=== PATIENT | female | born 2000 | race Caucasian/White ===

== ENCOUNTER 2020-04-04 16:39 | Outpatient (REF) | payer OTHER, SELFPAY | END 2020-04-04 16:40 | disposition home or self-care (01) | LOC: HO.LAB 16:39 | PROVIDERS: Visit Provider Internal Medicine | DX: Z20.822 Contact with and (suspected) exposure to COVID-19 (principal) | CPT/HCPCS: 36415; C9803; U0003 ==

== ENCOUNTER → 2021-05-01 13:33 | Outpatient (BNVA) | payer OTHER, SELFPAY | PROVIDERS: Visit Provider Physician Assistant Medical | DX: S57.82XA Crushing injury of left forearm, initial encounter (principal); W31.9XXA Contact with unspecified machinery, initial encounter | CPT/HCPCS: 99203 ==

== ENCOUNTER → 2021-05-10 15:17 | Outpatient (BNVA) | payer OTHER, SELFPAY | PROVIDERS: Visit Provider Physician Assistant | DX: S57.82XA Crushing injury of left forearm, initial encounter (principal); W23.0XXA Caught, crushed, jammed, or pinched between moving objects, initial encounter | CPT/HCPCS: 99214 ==

== ENCOUNTER 2021-05-23 12:02 | Outpatient (REF) | payer OTHER, SELFPAY ==
--- NOTE | ~2021-05-23 | MR_ITS ---
EXAMINATION: MR FOREARM WITHOUT CONTRAST, LEFT CLINICAL INFORMATION: Crushing injury in machine. Unable to fully supinate. COMPARISON: None TECHNIQUE: Multiplanar MR imaging was obtained through the left forearm without contrast material on a 1.5 Hermila magnet. FINDINGS: There is edema signal around the flexor pollicis longus muscle in the volar aspect of the mid forearm. No discrete muscle or tendon tears. This may be due to a focal strain or contusion. Surrounding musculature is normal in signal intensity. No atrophy or fatty replacement. No additional areas of edema signal. The imaged tendons appear intact at both the elbow and wrist. No tears are identified. Both the common extensor and common flexor tendons are normal. Brachialis, biceps, and triceps tendons are normal. Extensor and flexor tendons at the level the wrist appear intact without appreciable tears. Sensitivity for subtle abnormalities at the wrist is limited given the large [id number] and low resolution of these tendons at the distal margin of the study. Bone marrow signal is normal. No fracture or malalignment. Elbow and wrist joints are unremarkable on these images. No appreciable arthritis. No fractures are identified. Alignment appears appropriate. No effusions are identified. There is subcutaneous edema in the forearm which is most pronounced at the volar/medial aspect proximally and, to a lesser extent, the dorsal aspect distally. As seen on image 22/39 series 6, there is a very thin 3 x 1.5 x 5.3 cm fluid collection in the superficial subcutaneous fat at the volar/medial aspect of the forearm. MR/MR forearm LT wo con IMPRESSION: 1. Mild edema signal around the flexor pollicis longus muscle at the mid forearm, suggestive of a strain or contusion. No tears. 2. Additional multifocal subcutaneous edema in the forearm with a thin band of subcutaneous fluid at the volar/medial aspect of the mid forearm, likely due to soft tissue contusions. No large hematomas or deep fluid collections are identified. 3. No acute osseous findings.
== END 2021-05-23 12:03 | disposition home or self-care (01) ==
LOC: HO.MRI 12:02
PROVIDERS: Visit Provider Internal Medicine
DX: S57.82XA Crushing injury of left forearm, initial encounter (principal); X58.XXXA Exposure to other specified factors, initial encounter; Y93.9 Activity, unspecified; Y92.9 Unspecified place or not applicable; Y99.9 Unspecified external cause status
CPT/HCPCS: 73218

== ENCOUNTER → 2021-05-24 09:32 | Outpatient (BNVA) | payer OTHER, SELFPAY | PROVIDERS: Visit Provider Physician Assistant | DX: S50.12XD Contusion of left forearm, subsequent encounter (principal); W23.0XXD Caught, crushed, jammed, or pinched between moving objects, subsequent encounter | CPT/HCPCS: 99213 ==

== ENCOUNTER → 2021-05-27 15:41 | Outpatient (BNVA) | payer OTHER, SELFPAY | PROVIDERS: Visit Provider Physician Assistant Medical | DX: S50.12XD Contusion of left forearm, subsequent encounter (principal); W23.0XXD Caught, crushed, jammed, or pinched between moving objects, subsequent encounter | CPT/HCPCS: 99213 ==

== ENCOUNTER 2021-06-13 15:30 | Outpatient (RCR) | payer OTHER, SELFPAY ==
--- NOTE | 2021-05-15 14:02 | MHC.OT.OEV ---
[address] [phone] F: [phone] Occupational Therapy Evaluation Diagnosis: Crush injury left arm Date of Onset: 04/27/21 Date of Surgery: Attending Provider: Jolie Jaimes PA-C Prescribed Treatment: Eval and treat MD Follow Up Appointment: 05/22/21 History of Current Condition: Pt reports her left hand and forearm sucked in to 2 rollers at . Pt pulled her arm out The ambulance brought her to the ER at [facility]. XR taken , given ibuprofen and tylonal. Instructed to elevate arm and follow up with Pt seen in the [facility] 05/01/21. Given Rx for ibuprofen and elevate. Pt referred to OT same day. Significant Medical History: Eczema, ho back pain. 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 72 sets per 12 hr shift , 4 days a wk Enjoys babysitting and water colors Living Situation, Family and/or Social Support: Lives with her parents, older sister and brother babysits Current Level of Function and Occupation Self Care, Employment, Leisure: Mod difficulty with homemaking, food preparation , babysitting.. due arm pain with use Out of work since injury Sleep: Mild difficulty falling asleep, discomfort in some positions Driving: WNL Vision: Balance: Pain Assessment Pain Score: 7 Pain Scale Used: Numeric (0 - 10) Pain Location and Description: 2-7 ulnar aspect of left forearm Aggravating Factors: Washing follows , dusting, lifting > 10 lb Alleviating Factors: Avoiding lifting...ice Skin and Soft Tissue Assessment Skin and Soft Tissue: Swelling Ecchymosis Comments: Left forearm edema and light ecchymosis ulnar aspect Nerve assessment Ulnar Nerve: WNL Median Nerve: WNL Radial Nerve: WNL Comments: Sensory Assessment Temperature: Light Touch: WNL Proprioception: Vibration: Comments: Edema Assessment Upper Extremity: Left Impaired Lower Extremity: Comments: Circumference at wrist R 17 cm L 17.5 cm 20 cm prox to wrist R 30.5 cm L 31.5 cm Dexterity Assessment Dexterity: WNL Comments: Special Tests Comments: AROM(PROM) Strength Cervical Cervical Flexion: Cervical Extension: Cervical Lateral Flexion: Cervical Rotation: Comments: Shoulder Flexion: Extension: Abduction: Internal Rotation: External Rotation: Comments: WNL Flexion: Extension: Abduction: Internal Rotation: External Rotation: Comments: WNL Elbow Flexion: Extension: Pronation: Supination: Comments: WNL. Right elbow hyper ext..left elbow to neutral Flexion: Extension: Pronation: Supination: Comments: WNL Wrist Flexion: Extension: Ulnar Deviation: Radial Deviation: Comments: WNL . 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 Patient verbalizes Needs reinforcement Barriers to Learning: None Readiness for Learning: Accepting Who was educated? Patient Comments: Plan of Care Assessment: Pt is a 21 yo female 2 wks, 4 days s/p left forearm crush injury between rollers of a machine at work. XR done at [facility] showed no fx or dislocation. Pt now being followed by the [facility] here at [facility] She reports pain and arm edema improving. 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 She has been out of work since her injury She will benefit from OT to dec edema and pain, and inc ease with UE mobility and activities tolerance including lifting tolerance for a safe return to work. 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
--- NOTE | 2021-06-13 16:43 | MHC.OT.DC ---
[address] [phone] F: [phone] Occupational Therapy Discharge Note Provider: Jolie Jaimes PA-C Diagnosis: Crush injury left arm Date of Surgery: Date of Evaluation: 05/15/21 Date of Discharge: 06/13/21 Treatments to Date: 5 Cancellations to Date: 0 No Shows to Date: Discharge Status: Achieved Goals Improved Function Independent with HEP Discharge Summary: Inc ease with UE ROM and dec in arm edema and dec frequency and intensity of pain too very low and only when bumped. Pt continues to avoid heavy use of her right arm. Pt reports that [employer] released her to [employer] light duty. 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 I anticipate con't improvement with her HEP She will follow up with [facility] in 6 wks Electronically Signed By: Liz Boyce OT CHT CLT Reviewed/agree with student documentation: N/A Therapist: Please Sign and return to therapist, thank you for your referral.
== END 2021-06-13 16:44 | disposition home or self-care (01) ==
LOC: HO.OT 15:30
PROVIDERS: Visit Provider Physician Assistant
DX: S47.2XXD Crushing injury of left shoulder and upper arm, subsequent encounter (principal)
CPT/HCPCS: 97110; 97140; 97165

== ENCOUNTER 2022-02-04 13:51 | Outpatient (REF) | payer OTHER, SELFPAY ==
--- NOTE | 2022-02-04 17:29 | PFT_ITS ---
FLOWS: FEV1 90% of predicted at 3.06 L. FVC 86% of predicted at 3.40 L. FEV1 to FVC ratio of 0.90. No bronchodilator response. LUNG VOLUMES: Total lung capacity 81% of predicted at 4.24 L. Residual volume 65% of predicted at 0.84 L. Slow vital capacity 86% of predicted at 3.39 L. Expiratory reserve volume 47% of predicted at 0.73 L. Diffusion capacity is normal. IMPRESSION: No obstructive or restrictive ventilatory defect. No bronchodilator response. Decreased expiratory reserve volume suggests extrathoracic restriction likely secondary to abdominal obesity. Han Maldonado MD AP/MODL / [id number]
== END 2022-02-04 13:52 | disposition home or self-care (01) ==
LOC: HO.RESP 13:51
PROVIDERS: PCP Internal Medicine; Visit Provider Hospitalist
DX: J45.909 Unspecified asthma, uncomplicated (principal)
CPT/HCPCS: 94060; 94727; 94729

== ENCOUNTER 2022-04-24 15:49 | Outpatient (REF) | payer OTHER, SELFPAY ==
--- NOTE | ~2022-04-24 | XR_ITS ---
EXAMINATION: XR CHEST CLINICAL INFORMATION: Asthma. COMPARISON: None. TECHNIQUE: Frontal and lateral views of the chest were obtained. FINDINGS: The heart, great vessels, pulmonary vasculature and mediastinum are normal. The lungs show no focal infiltrate, effusion or pneumothorax. There is mild bilateral bronchiolar wall thickening. There is no acute osseous abnormality. XR/XR chest 2V IMPRESSION: 1. No focal infiltrate or congestive heart failure is seen. 2. There is mild bronchiolar wall thickening, consistent with the provided history of asthma.
[2022-04-24 16:10] LABS: MANUAL DIFF FLAG NO
[2022-04-24 16:27] LABS: Basophils Absolute Auto 0.1 X10*3/uL (0.0-0.2); Basophils Percent Auto 0.7 % (0-2); Eosinophils Absolute Auto 0.3 X10*3/uL (0.0-0.4); Eosinophils Percent Auto 3.3 % (0-4); Hematocrit 41.5 % (37.0-47.0); Hemoglobin 14.1 g/dl (12.0-16.0); Imm Gran Abs Auto 0.03 X10*3/uL (0.00-0.03); Imm Gran Pct Auto 0.3 % (0.0-0.4); Lymphocytes Absolute Auto 3.5 X10*3/uL (1.2-4.9); Lymphocytes Percent Auto 36.9 % (20-40); Mean Corpuscular Hemoglobin 28.1 pg (27.0-33.0); Mean Corpuscular Volume 82.7 fL (80.0-98.0); Mean Platelet Volume 9.4 fL (9.4-12.3); Monocytes Absolute Auto 0.8 X10*3/uL (0.1-1.2); Neutrophils Absolute Auto 4.8 x10*3/uL (2.0-8.3); Neutrophils Percent Auto 50.8 % (45-73); Platelet Count 283 X10*3/uL (160-400); Red Blood Count 5.02 X10*6/uL (4.20-5.50); Red Cell Distribution Width 12.2 % (11.0-16.0); White Blood Count 9.5 X10*3/uL (4.8-10.8)
[2022-04-24 17:11] LABS: Erythrocyte Sedimentation Rate 12 MM/HR (0-20)
== END 2022-04-24 15:50 | disposition home or self-care (01) ==
LOC: HO.XRAY 15:49
PROVIDERS: PCP Internal Medicine; Visit Provider Hospitalist
DX: J45.909 Unspecified asthma, uncomplicated (principal)
CPT/HCPCS: 36415; 71046; 85025; 85652

== ENCOUNTER 2022-05-08 19:15 | Emergency (ER) | payer OTHER, SELFPAY ==
--- NOTE | ~2022-05-08 | XR_ITS ---
EXAMINATION: XR CHEST CLINICAL INFORMATION: Chest pain and shortness of breath. Palpitations. COMPARISON: Previous chest x-ray from earlier this month TECHNIQUE: Frontal view of the chest was obtained. FINDINGS: No significant abnormality is noted involving the heart, lungs, mediastinum, bony thorax or soft tissues. XR/XR chest 1V IMPRESSION: Unremarkable examination.
[2022-05-08 19:17] VITALS: BP 192/107; PULSE 132; RESP 20; TEMP 36.3; O2SAT 97; BMI 43.2
--- NOTE | 2022-05-08 19:17 | ED.CHESTPAIN ---
HPI - Chest Pain General Chief Complaint: Chest Pain <EVERARDO Urban - Last Filed: 05/08/22 19:25> Stated Complaint: chest pain, shortness of breath, nausea, back pain <EVERARDO Urban - Last Filed: 05/08/22 19:25> Time Seen by Provider: 05/08/22 21:28 <EVERARDO Urban - Last Filed: 05/08/22 19:25> Source: patient <Alon Plasencia MD - Last Filed: 05/09/22 00:31> Mode of arrival: ambulatory <Alon Plasencia MD - Last Filed: 05/09/22 00:31> Limitations: no limitations <Alon Plasencia MD - Last Filed: 05/09/22 00:31> History of Present Illness HPI narrative: 22yoF with a PMHx of PCOs, GERD, Depression who is presenting to the ED with complaints of headaches, nausea, CP, SOB, feeling like hearts racing for last 2 1/2 months, on arrival patient's blood pressure was 192/107 with heart rate of 132 repeat blood pressure was 142/87. Patient never had history of hypertension has gained about 20 lb in last few months feels short of breath specially on ambulation patient does snore in the night chest pain is off and on lasting for hours no relation to exertion patient has history of anxiety but does not feel anxious all the time does have multiple pets or specific no family history of hypertension or cardiac problems no history of asthma no leg swelling or calf pain <Alon Plasencia MD - Last Filed: 05/09/22 00:31> Related Data Home Medications: Home Medications Medication Instructions Recorded Confirmed venlafaxine 150 mg 150 mg PO DAILY 12/25/21 12/25/21 capsule,extended release 24 hr venlafaxine 37.5 mg tablet 37.5 mg PO DAILY 12/25/21 12/25/21 Previous Rx's Medication Instructions Recorded omeprazole 20 mg capsule,delayed 20 mg PO DAILY 90 days #90 caps 12/25/21 release montelukast 5 mg chewable tablet 5 mg PO BEDTIME 30 days #30 tabs 01/16/22 albuterol sulfate 90 mcg/actuation 2 inh inhalation Q6H PRN shortness 01/21/22 aerosol inhaler of breath or wheezing 30 days #1 ea metoprolol tartrate 50 mg tablet 50 mg PO BID #60 tabs 05/09/22 (Lopressor) <EVERARDO Urban - Last Filed: 05/08/22 19:25> Allergies/Adverse Reactions: Allergies Allergy/AdvReac Type Severity Reaction Status Date / Time dust mite Allergy Mild stuffy Uncoded 01/16/22 15:21 nose, cough <EVERARDO Urban - Last Filed: 05/08/22 19:25> Review of Systems Review of Systems: Yes all other systems are reviewed and are negative <Alon Plasencia MD - Last Filed: 05/09/22 00:31> [facility] Past Medical History Medical History: Medical History Asthma Atopic dermatitis Chronic rhinitis <EVERARDO Urban - Last Filed: 05/08/22 19:25> Surgical History: Surgical History No pertinent past surgical history <EVERARDO Urban - Last Filed: 05/08/22 19:25> Family History Family History: Family History Mother Hypertension Pre-diabetes Arthritis Father No problems noted. Maternal Grandmother Stroke <EVERARDO Urban - Last Filed: 05/08/22 19:25> Social History Social History: Social History Housing: House Alcohol intake: current Alcohol intake frequency: a few times a month Alcohol type: wine Patient Tobacco Use Status: Never used Tobacco e-Cigarette/Vaping Use: Never Used Second Hand Smoke Exposure: No Advance Directives: No Advance Directives Information Provided: No service: No Current occupational status: unemployed Cognitive needs: No Hearing needs: No Vision needs: Yes <EVERARDO Urban - Last Filed: 05/08/22 19:25> Physical Exam Vital Signs: Vital Signs: Last Vital Signs Temp 97.2 F 05/09/22 00:04 Pulse 97 05/09/22 00:04 Resp 23 H 05/09/22 00:04 BP 141/85 H 05/09/22 00:04 Pulse Ox 96 05/09/22 00:04 O2 Del Method 05/09/22 00:04 BMI result Body Mass Index 43.2 <EVERARDO Urban - Last Filed: 05/08/22 19:25> Vital Signs: Last Vital Signs Temp 97.2 F 05/09/22 00:04 Pulse 97 05/09/22 00:04 Resp 23 H 05/09/22 00:04 BP 141/85 H 05/09/22 00:04 Pulse Ox 96 05/09/22 00:04 O2 Del Method 05/09/22 00:04 BMI result Body Mass Index 43.2 <Alon Plasencia MD - Last Filed: 05/09/22 00:31> Appearance: Alert. Oriented X3. No acute distress. Eyes: PERRLA, No Nystagmus ENT: Pharynx normal. Oral Mucosa moist Neck: Normal inspection. Neck supple. CVS: Tachycardia no murmur no rub or gallop. Pulses normal. Respiratory: No respiratory distress. Equal air entry bilateral, no wheezing/rales/rhonchi Abdomen: Soft and nontender. Bowel sounds are present, no mass palpable, no CVA tenderness Skin: Skin warm and dry. Normal skin color. Normal skin turgor. Extremities: No lower extremity edema. No calf tenderness Neuro: Oriented X 3. No motor deficit. No sensory deficit.No cerebellar signs , cranial nerves II-XII intact <Alon Plasencia MD - Last Filed: 05/09/22 00:31> Course Course Course Narrative: RME- 19:20 22yoF with a PMHx of PCOs, GERD, Depression who is presenting to the ED with complaints of headaches, nausea, CP, SOB, feeling like hearts racing and left/mid back for a few weeks worse yesterday. She also noted blurry vision yesterday. And left leg pain. She took her BP yesterday and noted it to be high at 147/102. Has never had blood pressure issues. Denies being on BC, recent travel, surgery, cancer, DVT/PE's, or hypercoagulation disorder that she is aware of. She denies any fevers, abdominal pain, vomiting or any other symptoms complaints or concerns at this time. Patient noted to be hypertensive and tachycardic in triage. Therefore she will have labs, EKG and a chest x-ray and she will be brought to the emergency department for further evaluation treatment. <EVERARDO Urban - Last Filed: 05/08/22 19:25> Medications Administered Discontinued Medications Generic Name Dose Route Start Last Admin Trade Name Freq PRN Reason Stop Dose Admin Sodium Chloride 1,000 mls @ 999 mls/hr 05/08/22 21:31 05/08/22 22:44 Ns IV 05/08/22 22:31 Infused .Q1H1M ONE Infusion Metoprolol Tartrate 5 mg 05/08/22 21:31 05/08/22 21:35 Metoprolol Tartrate 5 Mg/5 Ml Vial IVPUSH 05/08/22 21:32 5 mg ONCE ONE Administration <EVERARDO Urban - Last Filed: 05/08/22 19:25> Medications Administered Discontinued Medications Generic Name Dose Route Start Last Admin Trade Name Freq PRN Reason Stop Dose Admin Sodium Chloride 1,000 mls @ 999 mls/hr 05/08/22 21:31 05/08/22 22:44 Ns IV 05/08/22 22:31 Infused .Q1H1M ONE Infusion Metoprolol Tartrate 5 mg 05/08/22 21:31 05/08/22 21:35 Metoprolol Tartrate 5 Mg/5 Ml Vial IVPUSH 05/08/22 21:32 5 mg ONCE ONE Administration <Alon Plasencia MD - Last Filed: 05/09/22 00:31> Medical Decision Making Medical Decision Making MDM Narrative: Patient with sinus tachycardia with heart rate fluctuating between 110-130 responded to Lopressor no orthostatic tachycardia. Patient denies any anxiety no caffeine intake chest pain was atypical without any ischemic changes in the EKG patient D-dimer was normal high sensitive troponin was negative urine was normal flu RSV COVID negative chest x-ray was also negative. Patient might have essential hypertension along with tachycardia. Will discharge patient home on Lopressor 50 mg twice daily advised to follow with receiving supervisor and PCP for further evaluation <Alon Plasencia MD - Last Filed: 05/09/22 00:31> Differential Diagnosis Atrial fibrillation/atrial flutter/sinus tachycardia/SVT/anxiety/hypertension/PE/POTS <Alon Plasencia MD - Last Filed: 05/09/22 00:31> Lab Data [facility] Lab Attestation statement: I reviewed the patient's lab results. <Alon Plasencia MD - Last Filed: 05/09/22 00:31> Result Diagrams: 05/08/22 19:47 05/08/22 19:47 <EVERARDO Urban - Last Filed: 05/08/22 19:25> Labs: Lab Results 05/08/22 05/08/22 05/08/22 Range/Units 19:47 19:47 19:47 WBC 11.2 H (4.8-10.8) X10*3/uL RBC 4.99 (4.20-5.50) X10*6/uL Hgb 14.0 (12.0-16.0) g/dl Hct 40.8 (37.0-47.0) % MCV 81.8 (80.0-98.0) fL MCH 28.1 (27.0-33.0) pg MCHC 34.3 (31.0-35.0) g/dl RDW 12.3 (11.0-16.0) % Plt Count 312 (160-400) X10*3/uL MPV 9.2 L (9.4-12.3) fL Immature Gran % (Auto) 0.4 (0.0-0.4) % Neut % (Auto) 65.3 (45-73) % Lymph % (Auto) 26.3 (20-40) % [place] % (Auto) 5.6 (2-11) % Eos % (Auto) 1.9 (0-4) % Baso % (Auto) 0.5 (0-2) % Lymph # (Auto) 2.9 (1.2-4.9) X10*3/uL [place] # (Auto) 0.6 (0.1-1.2) X10*3/uL Eos # (Auto) 0.2 (0.0-0.4) X10*3/uL Baso # (Auto) 0.1 (0.0-0.2) X10*3/uL Abs Immat Gran (auto) 0.05 H (0.00-0.03) X10*3/uL Absolute Neuts (auto) 7.3 (2.0-8.3) x10*3/uL Absolute Nucleated RBC 0.000 (0.0-0.012) X10*3/uL Nucleated RBC % (auto) 0.0 (0.0-0.2) /100WBC PT 11.0 (10.0-13.1) SEC INR 1.0 (0.9-1.1) D-Dimer High Sensitivty 177 NG/ML Sodium 140 (135-145) mmol/L Potassium 4.1 (3.3-5.1) mmol/L Chloride 105 (96-108) mmol/L Carbon Dioxide 22 (22-29) mmol/L Anion Gap 17 (12-20) BUN 9 (9-16) mg/dL Creatinine 0.77 (0.5-1.4) mg/dL Estim Creat Clear Calc 145.9 Estimated GFR > 60 Random Glucose 112 (60-115) mg/dL Calcium 9.9 (8.4-10.2) mg/dL Magnesium 1.8 (1.6-2.6) mg/dL Total Bilirubin 0.4 (0.0-1.0) mg/dL AST 28 (5-31) U/L ALT 32 H (0-31) U/L Alkaline Phosphatase 90 (39-117) U/L Troponin I High Sens (<3.5-17.0) ng/L Total Protein 7.6 (6.5-8.0) g/dL Albumin 4.2 (3.5-5.0) g/dL Lipase (8-78) U/L Beta HCG, Quant mIU/mL Urine Color Urine Appearance Urine pH (5.0-9.0) Ur Specific [place] (1.005-1.025) Urine Protein (Neg-Trace) mg/dL Urine Glucose (UA) (Negative) mg/dL Urine Ketones (Negative) mg/dL Urine Blood (Negative) Urine Nitrite (Negative) Ur Leukocyte Esterase (Negative) Influenza Type A (PCR) (Negative) Influenza Type B (PCR) (Negative) RSV RNA Qual (PCR) (Negative) SARS-CoV-2 RNA (RT-PCR) (Negative) 05/08/22 05/08/22 05/08/22 Range/Units 19:47 19:47 19:47 WBC (4.8-10.8) X10*3/uL RBC (4.20-5.50) X10*6/uL Hgb (12.0-16.0) g/dl Hct (37.0-47.0) % MCV (80.0-98.0) fL MCH (27.0-33.0) pg MCHC (31.0-35.0) g/dl RDW (11.0-16.0) % Plt Count (160-400) X10*3/uL MPV (9.4-12.3) fL Immature Gran % (Auto) (0.0-0.4) % Neut % (Auto) (45-73) % Lymph % (Auto) (20-40) % [place] % (Auto) (2-11) % Eos % (Auto) (0-4) % Baso % (Auto) (0-2) % Lymph # (Auto) (1.2-4.9) X10*3/uL [place] # (Auto) (0.1-1.2) X10*3/uL Eos # (Auto) (0.0-0.4) X10*3/uL Baso # (Auto) (0.0-0.2) X10*3/uL Abs Immat Gran (auto) (0.00-0.03) X10*3/uL Absolute Neuts (auto) (2.0-8.3) x10*3/uL Absolute Nucleated RBC (0.0-0.012) X10*3/uL Nucleated RBC % (auto) (0.0-0.2) /100WBC PT (10.0-13.1) SEC INR (0.9-1.1) D-Dimer High Sensitivty NG/ML Sodium (135-145) mmol/L Potassium (3.3-5.1) mmol/L Chloride (96-108) mmol/L Carbon Dioxide (22-29) mmol/L Anion Gap (12-20) BUN (9-16) mg/dL Creatinine (0.5-1.4) mg/dL Estim Creat Clear Calc Estimated GFR Random Glucose (60-115) mg/dL Calcium (8.4-10.2) mg/dL Magnesium (1.6-2.6) mg/dL Total Bilirubin (0.0-1.0) mg/dL AST (5-31) U/L ALT (0-31) U/L Alkaline Phosphatase (39-117) U/L Troponin I High Sens < 3.5 (<3.5-17.0) ng/L Total Protein (6.5-8.0) g/dL Albumin (3.5-5.0) g/dL Lipase 26 (8-78) U/L Beta HCG, Quant < 2 mIU/mL Urine Color Urine Appearance Urine pH (5.0-9.0) Ur Specific [place] (1.005-1.025) Urine Protein (Neg-Trace) mg/dL Urine Glucose (UA) (Negative) mg/dL Urine Ketones (Negative) mg/dL Urine Blood (Negative) Urine Nitrite (Negative) Ur Leukocyte Esterase (Negative) Influenza Type A (PCR) NEGATIVE (Negative) Influenza Type B (PCR) NEGATIVE (Negative) RSV RNA Qual (PCR) NEGATIVE (Negative) SARS-CoV-2 RNA (RT-PCR) NEGATIVE (Negative) 05/08/22 Range/Units 23:03 WBC (4.8-10.8) X10*3/uL RBC (4.20-5.50) X10*6/uL Hgb (12.0-16.0) g/dl Hct (37.0-47.0) % MCV (80.0-98.0) fL MCH (27.0-33.0) pg MCHC (31.0-35.0) g/dl RDW (11.0-16.0) % Plt Count (160-400) X10*3/uL MPV (9.4-12.3) fL Immature Gran % (Auto) (0.0-0.4) % Neut % (Auto) (45-73) % Lymph % (Auto) (20-40) % [place] % (Auto) (2-11) % Eos % (Auto) (0-4) % Baso % (Auto) (0-2) % Lymph # (Auto) (1.2-4.9) X10*3/uL [place] # (Auto) (0.1-1.2) X10*3/uL Eos # (Auto) (0.0-0.4) X10*3/uL Baso # (Auto) (0.0-0.2) X10*3/uL Abs Immat Gran (auto) (0.00-0.03) X10*3/uL Absolute Neuts (auto) (2.0-8.3) x10*3/uL Absolute Nucleated RBC (0.0-0.012) X10*3/uL Nucleated RBC % (auto) (0.0-0.2) /100WBC PT (10.0-13.1) SEC INR (0.9-1.1) D-Dimer High Sensitivty NG/ML Sodium (135-145) mmol/L Potassium (3.3-5.1) mmol/L Chloride (96-108) mmol/L Carbon Dioxide (22-29) mmol/L Anion Gap (12-20) BUN (9-16) mg/dL Creatinine (0.5-1.4) mg/dL Estim Creat Clear Calc Estimated GFR Random Glucose (60-115) mg/dL Calcium (8.4-10.2) mg/dL Magnesium (1.6-2.6) mg/dL Total Bilirubin (0.0-1.0) mg/dL AST (5-31) U/L ALT (0-31) U/L Alkaline Phosphatase (39-117) U/L Troponin I High Sens (<3.5-17.0) ng/L Total Protein (6.5-8.0) g/dL Albumin (3.5-5.0) g/dL Lipase (8-78) U/L Beta HCG, Quant mIU/mL Urine Color Yellow Urine Appearance Clear Urine pH 6.0 (5.0-9.0) Ur Specific [place] 1.020 (1.005-1.025) Urine Protein Negative (Neg-Trace) mg/dL Urine Glucose (UA) Negative (Negative) mg/dL Urine Ketones Negative (Negative) mg/dL Urine Blood Negative (Negative) Urine Nitrite Negative (Negative) Ur Leukocyte Esterase Negative (Negative) Influenza Type A (PCR) (Negative) Influenza Type B (PCR) (Negative) RSV RNA Qual (PCR) (Negative) SARS-CoV-2 RNA (RT-PCR) (Negative) <EVERARDO Urban - Last Filed: 05/08/22 19:25> Lab Results 05/08/22 05/08/22 05/08/22 Range/Units 19:47 19:47 19:47 WBC 11.2 H (4.8-10.8) X10*3/uL RBC 4.99 (4.20-5.50) X10*6/uL Hgb 14.0 (12.0-16.0) g/dl Hct 40.8 (37.0-47.0) % MCV 81.8 (80.0-98.0) fL MCH 28.1 (27.0-33.0) pg MCHC 34.3 (31.0-35.0) g/dl RDW 12.3 (11.0-16.0) % Plt Count 312 (160-400) X10*3/uL MPV 9.2 L (9.4-12.3) fL Immature Gran % (Auto) 0.4 (0.0-0.4) % Neut % (Auto) 65.3 (45-73) % Lymph % (Auto) 26.3 (20-40) % [place] % (Auto) 5.6 (2-11) % Eos % (Auto) 1.9 (0-4) % Baso % (Auto) 0.5 (0-2) % Lymph # (Auto) 2.9 (1.2-4.9) X10*3/uL [place] # (Auto) 0.6 (0.1-1.2) X10*3/uL Eos # (Auto) 0.2 (0.0-0.4) X10*3/uL Baso # (Auto) 0.1 (0.0-0.2) X10*3/uL Abs Immat Gran (auto) 0.05 H (0.00-0.03) X10*3/uL Absolute Neuts (auto) 7.3 (2.0-8.3) x10*3/uL Absolute Nucleated RBC 0.000 (0.0-0.012) X10*3/uL Nucleated RBC % (auto) 0.0 (0.0-0.2) /100WBC PT 11.0 (10.0-13.1) SEC INR 1.0 (0.9-1.1) D-Dimer High Sensitivty 177 NG/ML Sodium 140 (135-145) mmol/L Potassium 4.1 (3.3-5.1) mmol/L Chloride 105 (96-108) mmol/L Carbon Dioxide 22 (22-29) mmol/L Anion Gap 17 (12-20) BUN 9 (9-16) mg/dL Creatinine 0.77 (0.5-1.4) mg/dL Estim Creat Clear Calc 145.9 Estimated GFR > 60 Random Glucose 112 (60-115) mg/dL Calcium 9.9 (8.4-10.2) mg/dL Magnesium 1.8 (1.6-2.6) mg/dL Total Bilirubin 0.4 (0.0-1.0) mg/dL AST 28 (5-31) U/L ALT 32 H (0-31) U/L Alkaline Phosphatase 90 (39-117) U/L Troponin I High Sens (<3.5-17.0) ng/L Total Protein 7.6 (6.5-8.0) g/dL Albumin 4.2 (3.5-5.0) g/dL Lipase (8-78) U/L Beta HCG, Quant mIU/mL Urine Color Urine Appearance Urine pH (5.0-9.0) Ur Specific [place] (1.005-1.025) Urine Protein (Neg-Trace) mg/dL Urine Glucose (UA) (Negative) mg/dL Urine Ketones (Negative) mg/dL Urine Blood (Negative) Urine Nitrite (Negative) Ur Leukocyte Esterase (Negative) Influenza Type A (PCR) (Negative) Influenza Type B (PCR) (Negative) RSV RNA Qual (PCR) (Negative) SARS-CoV-2 RNA (RT-PCR) (Negative) 05/08/22 05/08/22 05/08/22 Range/Units 19:47 19:47 19:47 WBC (4.8-10.8) X10*3/uL RBC (4.20-5.50) X10*6/uL Hgb (12.0-16.0) g/dl Hct (37.0-47.0) % MCV (80.0-98.0) fL MCH (27.0-33.0) pg MCHC (31.0-35.0) g/dl RDW (11.0-16.0) % Plt Count (160-400) X10*3/uL MPV (9.4-12.3) fL Immature Gran % (Auto) (0.0-0.4) % Neut % (Auto) (45-73) % Lymph % (Auto) (20-40) % [place] % (Auto) (2-11) % Eos % (Auto) (0-4) % Baso % (Auto) (0-2) % Lymph # (Auto) (1.2-4.9) X10*3/uL [place] # (Auto) (0.1-1.2) X10*3/uL Eos # (Auto) (0.0-0.4) X10*3/uL Baso # (Auto) (0.0-0.2) X10*3/uL Abs Immat Gran (auto) (0.00-0.03) X10*3/uL Absolute Neuts (auto) (2.0-8.3) x10*3/uL Absolute Nucleated RBC (0.0-0.012) X10*3/uL Nucleated RBC % (auto) (0.0-0.2) /100WBC PT (10.0-13.1) SEC INR (0.9-1.1) D-Dimer High Sensitivty NG/ML Sodium (135-145) mmol/L Potassium (3.3-5.1) mmol/L Chloride (96-108) mmol/L Carbon Dioxide (22-29) mmol/L Anion Gap (12-20) BUN (9-16) mg/dL Creatinine (0.5-1.4) mg/dL Estim Creat Clear Calc Estimated GFR Random Glucose (60-115) mg/dL Calcium (8.4-10.2) mg/dL Magnesium (1.6-2.6) mg/dL Total Bilirubin (0.0-1.0) mg/dL AST (5-31) U/L ALT (0-31) U/L Alkaline Phosphatase (39-117) U/L Troponin I High Sens < 3.5 (<3.5-17.0) ng/L Total Protein (6.5-8.0) g/dL Albumin (3.5-5.0) g/dL Lipase 26 (8-78) U/L Beta HCG, Quant < 2 mIU/mL Urine Color Urine Appearance Urine pH (5.0-9.0) Ur Specific [place] (1.005-1.025) Urine Protein (Neg-Trace) mg/dL Urine Glucose (UA) (Negative) mg/dL Urine Ketones (Negative) mg/dL Urine Blood (Negative) Urine Nitrite (Negative) Ur Leukocyte Esterase (Negative) Influenza Type A (PCR) NEGATIVE (Negative) Influenza Type B (PCR) NEGATIVE (Negative) RSV RNA Qual (PCR) NEGATIVE (Negative) SARS-CoV-2 RNA (RT-PCR) NEGATIVE (Negative) 05/08/22 Range/Units 23:03 WBC (4.8-10.8) X10*3/uL RBC (4.20-5.50) X10*6/uL Hgb (12.0-16.0) g/dl Hct (37.0-47.0) % MCV (80.0-98.0) fL MCH (27.0-33.0) pg MCHC (31.0-35.0) g/dl RDW (11.0-16.0) % Plt Count (160-400) X10*3/uL MPV (9.4-12.3) fL Immature Gran % (Auto) (0.0-0.4) % Neut % (Auto) (45-73) % Lymph % (Auto) (20-40) % [place] % (Auto) (2-11) % Eos % (Auto) (0-4) % Baso % (Auto) (0-2) % Lymph # (Auto) (1.2-4.9) X10*3/uL [place] # (Auto) (0.1-1.2) X10*3/uL Eos # (Auto) (0.0-0.4) X10*3/uL Baso # (Auto) (0.0-0.2) X10*3/uL Abs Immat Gran (auto) (0.00-0.03) X10*3/uL Absolute Neuts (auto) (2.0-8.3) x10*3/uL Absolute Nucleated RBC (0.0-0.012) X10*3/uL Nucleated RBC % (auto) (0.0-0.2) /100WBC PT (10.0-13.1) SEC INR (0.9-1.1) D-Dimer High Sensitivty NG/ML Sodium (135-145) mmol/L Potassium (3.3-5.1) mmol/L Chloride (96-108) mmol/L Carbon Dioxide (22-29) mmol/L Anion Gap (12-20) BUN (9-16) mg/dL Creatinine (0.5-1.4) mg/dL Estim Creat Clear Calc Estimated GFR Random Glucose (60-115) mg/dL Calcium (8.4-10.2) mg/dL Magnesium (1.6-2.6) mg/dL Total Bilirubin (0.0-1.0) mg/dL AST (5-31) U/L ALT (0-31) U/L Alkaline Phosphatase (39-117) U/L Troponin I High Sens (<3.5-17.0) ng/L Total Protein (6.5-8.0) g/dL Albumin (3.5-5.0) g/dL Lipase (8-78) U/L Beta HCG, Quant mIU/mL Urine Color Yellow Urine Appearance Clear Urine pH 6.0 (5.0-9.0) Ur Specific [place] 1.020 (1.005-1.025) Urine Protein Negative (Neg-Trace) mg/dL Urine Glucose (UA) Negative (Negative) mg/dL Urine Ketones Negative (Negative) mg/dL Urine Blood Negative (Negative) Urine Nitrite Negative (Negative) Ur Leukocyte Esterase Negative (Negative) Influenza Type A (PCR) (Negative) Influenza Type B (PCR) (Negative) RSV RNA Qual (PCR) (Negative) SARS-CoV-2 RNA (RT-PCR) (Negative) <Alon Plasencia MD - Last Filed: 05/09/22 00:31> Independent Interpretation I performed an independent interpretation of an: EKG <Alon Plasencia MD - Last Filed: 05/09/22 00:31> Interpretation: Sinus tachycardia heart rate 121 beats per minute normal interval normal axis no acute distress in no acute ischemia <Alon Plasencia MD - Last Filed: 05/09/22 00:31> Discharge Plan Discharge Clinical Impression: Sinus tachycardia, Hypertension <EVERARDO Urban - Last Filed: 05/08/22 19:25> Patient Disposition: Home, Self-Care <EVERARDO Urban - Last Filed: 05/08/22 19:25> Instructions: Hypertension (ED), Tachycardia (ED) <EVERARDO Urban - Last Filed: 05/08/22 19:25> Additional Instructions: Start working on weight reduction, exercise Lopressor 50 mg twice daily for heart rate control and blood pressure A normal pressure should be less than 135/85 and heart rate should be less than 100 Check blood pressure twice daily before you take the medicine and before going to bed Follow-up with PCP/receiving supervisor You might have sleep apnea you need further evaluation for that <EVERARDO Urban - Last Filed: 05/08/22 19:25> Prescriptions: New metoprolol tartrate [Lopressor] 50 mg tablet 50 mg PO BID Qty: 60 0RF No Action albuterol sulfate 90 mcg/actuation HFA aerosol inhaler 2 inh inhalation Q6H PRN (Reason: shortness of breath or wheezing) 30 Days Qty: 1 12RF venlafaxine 150 mg capsule,extended release 24hr 150 mg PO DAILY venlafaxine 37.5 mg tablet 37.5 mg PO DAILY omeprazole 20 mg capsule,delayed release(DR/EC) 20 mg PO DAILY 90 Days Qty: 90 1RF montelukast 5 mg tablet,chewable 5 mg PO BEDTIME 30 Days Qty: 30 11RF <EVERARDO Urban - Last Filed: 05/08/22 19:25> Referrals: Alexander Pleitez MD [Physician] - 1 week <EVERARDO Urban - Last Filed: 05/08/22 19:25>
--- NOTE | 2022-05-08 19:19 | ECG_ITS ---
Test Reason : CHEST PAIN Blood Pressure : / mmHG Vent. Rate : 121 BPM Atrial Rate : 121 BPM P-R Int : 152 ms QRS Dur : 086 ms QT Int : 326 ms P-R-T Axes : 040 -02 002 degrees QTc Int : 462 ms Sinus tachycardia Cannot rule out Anterior infarct , age undetermined Abnormal ECG No previous ECGs available Referred By: Ange Flanagan Electronically Signed By:Ever Amaral
[2022-05-08 19:49] LABS: MANUAL DIFF FLAG NO
[2022-05-08 19:50] LABS: Basophils Absolute Auto 0.1 X10*3/uL (0.0-0.2); Basophils Percent Auto 0.5 % (0-2); Eosinophils Absolute Auto 0.2 X10*3/uL (0.0-0.4); Eosinophils Percent Auto 1.9 % (0-4); Hematocrit 40.8 % (37.0-47.0); Imm Gran Abs Auto 0.05 X10*3/uL (0.00-0.03); Imm Gran Pct Auto 0.4 % (0.0-0.4); Lymphocytes Absolute Auto 2.9 X10*3/uL (1.2-4.9); Lymphocytes Percent Auto 26.3 % (20-40); Mean Corpuscular HGB Conc 34.3 g/dl (31.0-35.0); Mean Corpuscular Hemoglobin 28.1 pg (27.0-33.0); Mean Corpuscular Volume 81.8 fL (80.0-98.0); Mean Platelet Volume 9.2 fL (9.4-12.3); Monocytes Absolute Auto 0.6 X10*3/uL (0.1-1.2); Monocytes Percent Auto 5.6 % (2-11); Neutrophils Absolute Auto 7.3 x10*3/uL (2.0-8.3); Neutrophils Percent Auto 65.3 % (45-73); Platelet Count 312 X10*3/uL (160-400); Red Blood Count 4.99 X10*6/uL (4.20-5.50); Red Cell Distribution Width 12.3 % (11.0-16.0); White Blood Count 11.2 X10*3/uL (4.8-10.8)
--- NOTE | 2022-05-08 20:05 | PC.NURSE ---
patient placed into ED bed 9 from triage. put on cardiac rn, ekg done, iv line placed and labs obtained. patient is resting comfortably, in no apparent distress. HR tachy on monitor 130s. RR 30s. BP elevated. will CTM closely.
[2022-05-08 20:06] LABS: Alanine Aminotransferase 32 U/L (0-31); Albumin Level 4.2 g/dL (3.5-5.0); Alkaline Phosphatase 90 U/L (39-117); Anion Gap 17 (12-20); Aspartate Amino Transferase 28 U/L (5-31); Bilirubin Total 0.4 mg/dL (0.0-1.0); Blood Urea Nitrogen 9 mg/dL (9-16); Calcium 9.9 mg/dL (8.4-10.2); Carbon Dioxide 22 mmol/L (22-29); Chloride 105 mmol/L (96-108); Creatinine Clr Calc Pharmacy 145.9; Estimated Glomerular Filt Rate > 60; Glucose Random 112 mg/dL (60-115); Magnesium 1.8 mg/dL (1.6-2.6); Potassium 4.1 mmol/L (3.3-5.1); Sodium 140 mmol/L (135-145); Total Protein 7.6 g/dL (6.5-8.0)
[2022-05-08 20:22] LABS: Troponin-I High Sensitivity < 3.5 ng/L (<3.5-17.0)
[2022-05-08 20:27] LABS: Lipase 26 U/L (8-78)
[2022-05-08 20:29] LABS: Influenza A PCR NEGATIVE (Negative); Influenza B PCR NEGATIVE (Negative); Resp Syncy Virus RNA Qual PCR NEGATIVE (Negative); SARS COV2 PCR INHOUSE NEGATIVE (Negative)
[2022-05-08 20:36] LABS: HCG Quantitative < 2 mIU/mL
--- NOTE | 2022-05-08 21:26 | MHC.RECOVSUP ---
? Reason for consult:ETOH o? Current location:ED09? o? Identified substance use concern:? -? Withdrawal -? Seeking ATS (detox) -? Support ? Intervention: o? ATS bed search started/completed/in process o? Community resources provided o? Harm reduction discussion ? Plan: o? Bed search in progress to o? Follow up tomorrow? ? Additional information:[facility] met with pt and discussed ATS services, pt is interested but is being kept overnight, please continue bed search tomorrow.
[2022-05-08] MEDS: Metoprolol Tartrate 5 MG/5 ML VIAL IVPUSH (21:35)
[2022-05-08] MEDS: 0.9 % Sodium Chloride 1,000 ML 999 ML IV (21:36)
[2022-05-08 21:39] VITALS: BP 142/87; PULSE 122; RESP 18; TEMP 36.9; O2SAT 96
[2022-05-08 22:29] LABS: D Dimer High Sensitivity 177 NG/ML
[2022-05-08 22:55] VITALS: PULSE 105; O2SAT 96
[2022-05-08 23:12] LABS: Appearance Urine Clear; Color Urine Yellow; Glucose Urine UA Negative (Negative); Leukocyte Esterase Urine Negative (Negative); Nitrite Urine Negative (Negative); Urine Blood Negative (Negative); Urine Ketones Negative (Negative); Urine Protein Negative (Neg-Trace)
[2022-05-08 23:56] VITALS: BP 152/99; PULSE 104
[2022-05-09] VITALS: BP 160/98; PULSE 102
[2022-05-09 00:02] VITALS: BP 141/85; PULSE 97
[2022-05-09 00:04] VITALS: BP 141/85; PULSE 97; RESP 23; TEMP 36.2; O2SAT 96
[2022-05-09] MEDS: Metoprolol Tartrate 50 MG TABLET PO (00:35)
== END 2022-05-09 00:44 | disposition home or self-care (01) ==
PROVIDERS: Physician Assistant Medical; Emergency Provider Internal Medicine; PCP Internal Medicine
DX: R00.0 Tachycardia, unspecified (principal); R07.89 Other chest pain; R51.9 Headache, unspecified; I10 Essential (primary) hypertension; Z20.822 Contact with and (suspected) exposure to COVID-19; Z20.828 Contact with and (suspected) exposure to other viral communicable diseases; Z79.899 Other long term (current) drug therapy
CPT/HCPCS: 0241U; 36415; 71045; 80053; 81003; 83690; 83735; 84484; 84702; 85025; 85379; 85610; 93005; 96361; 96374; 99284

== ENCOUNTER 2022-05-13 15:47 | Outpatient (REF) | payer OTHER, SELFPAY ==
[2022-05-13 16:15] LABS: MANUAL DIFF FLAG NO
[2022-05-13 16:27] LABS: Basophils Absolute Auto 0.1 X10*3/uL (0.0-0.2); Basophils Percent Auto 0.7 % (0-2); Eosinophils Absolute Auto 0.3 X10*3/uL (0.0-0.4); Eosinophils Percent Auto 3.3 % (0-4); Hematocrit 43.5 % (37.0-47.0); Hemoglobin 14.6 g/dl (12.0-16.0); Imm Gran Abs Auto 0.04 X10*3/uL (0.00-0.03); Imm Gran Pct Auto 0.4 % (0.0-0.4); Lymphocytes Absolute Auto 3.8 X10*3/uL (1.2-4.9); Lymphocytes Percent Auto 37.2 % (20-40); Mean Corpuscular HGB Conc 33.6 g/dl (31.0-35.0); Mean Corpuscular Hemoglobin 27.2 pg (27.0-33.0); Mean Platelet Volume 9.3 fL (9.4-12.3); Monocytes Absolute Auto 0.8 X10*3/uL (0.1-1.2); Monocytes Percent Auto 7.8 % (2-11); Neutrophils Absolute Auto 5.2 x10*3/uL (2.0-8.3); Neutrophils Percent Auto 50.6 % (45-73); Platelet Count 322 X10*3/uL (160-400); Red Blood Count 5.37 X10*6/uL (4.20-5.50); Red Cell Distribution Width 12.4 % (11.0-16.0); White Blood Count 10.3 X10*3/uL (4.8-10.8)
[2022-05-13 16:57] LABS: Alanine Aminotransferase 30 U/L (0-31); Albumin Level 4.4 g/dL (3.5-5.0); Alkaline Phosphatase 94 U/L (39-117); Anion Gap 11 (12-20); Aspartate Amino Transferase 24 U/L (5-31); Bilirubin Total 0.3 mg/dL (0.0-1.0); Blood Urea Nitrogen 7 mg/dL (9-16); Calcium 9.9 mg/dL (8.4-10.2); Carbon Dioxide 29 mmol/L (22-29); Chloride 103 mmol/L (96-108); Cholesterol 256 mg/dL; Estimated Glomerular Filt Rate > 60; Glucose Fasting 88 mg/dL (60-99); HDL Cholesterol 45 mg/dL; LDL Cholesterol Calculated 156 mg/dl; Potassium 4.3 mmol/L (3.3-5.1); Sodium 139 mmol/L (135-145); Total Protein 7.7 g/dL (6.5-8.0); Triglycerides 277 mg/dL
[2022-05-13 17:07] LABS: Thyroid Stimulating Hormone 1.72 uIU/mL (0.32-4.0)
== END 2022-05-13 15:48 | disposition home or self-care (01) ==
LOC: HO.LAB 15:47
PROVIDERS: Absent Provider Internal Medicine; PCP Internal Medicine; Visit Provider Hospitalist
DX: Z00.00 Encounter for general adult medical examination without abnormal findings (principal); E78.5 Hyperlipidemia, unspecified; E66.01 Morbid (severe) obesity due to excess calories; Z68.41 Body mass index [BMI] 40.0-44.9, adult; J45.20 Mild intermittent asthma, uncomplicated; L20.9 Atopic dermatitis, unspecified; J31.0 Chronic rhinitis; K21.9 Gastro-esophageal reflux disease without esophagitis; G47.33 Obstructive sleep apnea (adult) (pediatric)
CPT/HCPCS: 36415; 80053; 80061; 84443; 85025

== ENCOUNTER 2022-06-06 10:05 | Outpatient (REF) | payer OTHER, SELFPAY ==
--- NOTE | ~2022-06-06 | US_ITS ---
EXAMINATION: US KIDNEYS, BILATERAL US RENAL ARTERY DOPPLER CLINICAL INFORMATION: Hypertension. COMPARISON: None available. TECHNIQUE: Ultrasound of the kidneys was performed along with color flow Doppler imaging and velocity measurements in the proximal mid and distal renal arteries. Aortic velocities were measured and renal/aortic ratios were calculated. In addition, interlobar resistive indices were measured. FINDINGS: The kidneys appeared normal with the right kidney measuring 11.9 x 5.5 x 5.9 cm and the left kidney measuring 13.4 x 5.8 x 6.0 cm. No renal masses, renal stones or hydronephrosis is seen. Renal cortical thickness appears normal. Velocity measurements in the proximal mid and distal renal arteries are normal on the right. On the left, velocities are mildly elevated proximally and in the mid renal artery at 208 and 197 cm/s respectively. Velocity in the aorta is greater than 100 at 119 cm/s and, therefore, the renal aortic ratios are not valid. Resistive indices are all within normal limits. US/US renal BI IMPRESSION: Elevated left-sided renal artery velocities. If there is clinical concern, CT angiography is recommended for further evaluation.
--- NOTE | ~2022-06-06 | US_ITS ---
EXAMINATION: US KIDNEYS, BILATERAL US RENAL ARTERY DOPPLER CLINICAL INFORMATION: Hypertension. COMPARISON: None available. TECHNIQUE: Ultrasound of the kidneys was performed along with color flow Doppler imaging and velocity measurements in the proximal mid and distal renal arteries. Aortic velocities were measured and renal/aortic ratios were calculated. In addition, interlobar resistive indices were measured. FINDINGS: The kidneys appeared normal with the right kidney measuring 11.9 x 5.5 x 5.9 cm and the left kidney measuring 13.4 x 5.8 x 6.0 cm. No renal masses, renal stones or hydronephrosis is seen. Renal cortical thickness appears normal. Velocity measurements in the proximal mid and distal renal arteries are normal on the right. On the left, velocities are mildly elevated proximally and in the mid renal artery at 208 and 197 cm/s respectively. Velocity in the aorta is greater than 100 at 119 cm/s and, therefore, the renal aortic ratios are not valid. Resistive indices are all within normal limits. US/US renal doppler IMPRESSION: Elevated left-sided renal artery velocities. If there is clinical concern, CT angiography is recommended for further evaluation.
== END 2022-06-06 10:06 | disposition home or self-care (01) ==
LOC: HO.US 10:05
PROVIDERS: PCP Internal Medicine; Visit Provider Internal Medicine
DX: I10 Essential (primary) hypertension (principal)
CPT/HCPCS: 76775; 93975

== ENCOUNTER → 2022-06-19 13:08 | Outpatient (REF) | payer OTHER, SELFPAY | LOC: HO.SL 13:08 | PROVIDERS: Visit Provider Hospitalist | DX: G47.33 Obstructive sleep apnea (adult) (pediatric) (principal) | CPT/HCPCS: 95806 ==

== ENCOUNTER → 2022-06-30 13:52 | Outpatient (REF) | payer OTHER, SELFPAY ==
--- NOTE | 2022-06-30 13:55 | HM_ITS ---
Conclusion: 1. Patient was monitored for total period of 2 days 2. Baseline was normal sinus rhythm with average heart of 111 beats per minute 3. Frequent sinus tachycardia with 82 % of the time heart rate greater than 100 beats per minute 4. Very rare ectopy noted 5. No significant pauses noted 6. No patient reported events MTDD
--- NOTE | 2022-06-30 13:55 | CA_ITS ---
Acquisition Time: 2022-06-30 13:57:51 Total Exercise Time: 00:05:26 Test Indications: CP Medications: Protocol: ABIGAIL Max HR: 162 BPM 82% of Pred: 197 BPM Max BP: 178/100 mmHG Max Work Load: 7.0 METS Exercise stress test exercise 5 min 26 sec of Abigail protocol achieivng 83% MPHR, with mild SOB, report 4/10 chest discomfort, without arrythmia, with normotensive response, without EKG changes. Chest discomfort resolved in recovery. Test reviewed with Dr. Pleitez. Message sent to PCP with report and recommendation for stress echocardiogram for further evaluation. Referred By: Beverly Peñaloza Overread By: LUDIN ARECHIGA
== END ==
LOC: HO.CARD 13:52
PROVIDERS: PCP Internal Medicine; Visit Provider Internal Medicine
DX: R07.9 Chest pain, unspecified (principal); R00.0 Tachycardia, unspecified
CPT/HCPCS: 93017; 93225

== ENCOUNTER 2022-07-28 15:15 | Outpatient (REF) | payer OTHER, SELFPAY ==
--- NOTE | ~2022-07-28 | CT_ITS ---
EXAMINATION: CT ANGIOGRAM ABDOMEN CLINICAL INFORMATION: Essential hypertension. COMPARISON: Renal ultrasound 06/06/2022. TECHNIQUE: Multiple axial images were obtained through the abdomen following the administration of 80 mL Omnipaque 350 intravenous contrast. Images were reviewed on a dedicated 3-D workstation. This CT examination was performed using dose optimization techniques as appropriate, variously including the following: *Automated exposure control *Adjustment of mA and/or kV according to patient size (this includes techniques or standardized protocols for targeted exams where dose is matched to indication/reason for exam; i.e. extremities or head) *Use of iterative reconstruction technique DLP: 236 mGy-cm VASCULAR FINDINGS: The abdominal aorta and proximal common iliac arteries appear normal. The celiac, SMA and JALEN are all widely patent. There are 2 renal arteries present on the right with a single renal artery present on the left. No renal artery stenoses are seen. No beading or pseudoaneurysms are seen to suggest the presence of FMD. NONVASCULAR FINDINGS: LUNG BASES: The visualized lung bases are unremarkable. LIVER, GALLBLADDER, AND BILIARY TREE: The liver is normal in size and shape but demonstrates decreased attenuation consistent with hepatic steatosis. There is focal fatty sparing adjacent to the gallbladder. The left lobe is enlarged, wrapping around the spleen. No focal hepatic lesion or biliary ductal dilatation is present. The gallbladder is unremarkable with no evidence of radiopaque gallstones, gallbladder wall thickening, or obvious pericholecystic inflammatory changes. PANCREAS: Unremarkable. SPLEEN: Unremarkable. ADRENAL GLANDS: Unremarkable. KIDNEYS AND URETERS: The kidneys are normal in size, shape, and attenuation. No hydronephrosis, hydroureter, or calculi seen. No perinephric stranding. GASTROINTESTINAL TRACT: The visualized bowel is unremarkable. ABDOMINAL WALL: No significant hernia is appreciated. LYMPH NODES: No retroperitoneal lymphadenopathy. OSSEOUS STRUCTURES: Unremarkable. CT/CT angio abdomen IMPRESSION: No evidence of renovascular hypertension. Fleischner guidelines were followed.
[2022-07-28] MEDS: iohexoL 350 MG/ML 100 ML INFUS..BTL IV (16:13)
== END 2022-07-28 15:16 | disposition home or self-care (01) ==
LOC: HO.CT 15:15
PROVIDERS: PCP Internal Medicine; Visit Provider Internal Medicine
DX: I10 Essential (primary) hypertension (principal)
CPT/HCPCS: 74175; Q9967

== ENCOUNTER 2022-08-11 14:33 | Outpatient (REF) | payer OTHER, SELFPAY ==
[2022-08-11 15:22] LABS: MANUAL DIFF FLAG NO
[2022-08-11 15:40] LABS: Basophils Absolute Auto 0.1 X10*3/uL (0.0-0.2); Basophils Percent Auto 0.7 % (0-2); Eosinophils Absolute Auto 0.4 X10*3/uL (0.0-0.4); Eosinophils Percent Auto 4.3 % (0-4); Hematocrit 43.8 % (37.0-47.0); Hemoglobin 14.8 g/dl (12.0-16.0); Imm Gran Abs Auto 0.09 X10*3/uL (0.00-0.03); Imm Gran Pct Auto 0.9 % (0.0-0.4); Lymphocytes Percent Auto 28.8 % (20-40); Mean Corpuscular HGB Conc 33.8 g/dl (31.0-35.0); Mean Corpuscular Hemoglobin 27.6 pg (27.0-33.0); Mean Corpuscular Volume 81.7 fL (80.0-98.0); Mean Platelet Volume 9.6 fL (9.4-12.3); Monocytes Absolute Auto 0.6 X10*3/uL (0.1-1.2); Neutrophils Absolute Auto 6.1 x10*3/uL (2.0-8.3); Neutrophils Percent Auto 59.3 % (45-73); Platelet Count 300 X10*3/uL (160-400); Red Blood Count 5.36 X10*6/uL (4.20-5.50); Red Cell Distribution Width 13.3 % (11.0-16.0); White Blood Count 10.3 X10*3/uL (4.8-10.8)
== END 2022-08-11 14:34 | disposition home or self-care (01) ==
LOC: HO.LAB 14:33
PROVIDERS: PCP Internal Medicine; Visit Provider Hospitalist
DX: J45.909 Unspecified asthma, uncomplicated (principal); L20.9 Atopic dermatitis, unspecified; J31.0 Chronic rhinitis; G47.33 Obstructive sleep apnea (adult) (pediatric); K21.9 Gastro-esophageal reflux disease without esophagitis
CPT/HCPCS: 36415; 82785; 85025; 86003

== ENCOUNTER 2022-10-15 16:50 | Outpatient (AMB) | payer OTHER, SELFPAY ==
[2022-10-15 16:53] VITALS: BP 140/110; BMI 45.6
--- NOTE | 2022-10-15 16:53 | MHC.PC.OV ---
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 Required: No Accompanied by: Self / Same As Patient Allergies dust mite Allergy (Mild, Uncoded 10/15/22 17:03) stuffy nose, cough Medication List - Last Reconciled 10/15/22 by Beverly Peñaloza MD albuterol sulfate 90 mcg/actuation 2 inhalations inhalation Q6H PRN 30 days azelastine 2 sprays intranasal BID 30 days fluticasone propionate 50 mcg/actuation 2 sprays intranasal DAILY 30 days omeprazole 20 mg PO DAILY 90 days Tobacco use date assessed: 05/21/22 Dental Screening Dental Screen Date: 10/15/22 Did you have a dental visit in the last 12 months?: No Did you have a dental problem in the last 6 months where you did not have access to dental care?: No Was dental information given to patient?: Patient has dentist HPI HPI Comments History of Present Illness Details This is a 22-year-old female with uncontrolled hypertension, asthma, GERD and morbid obesity that comes today for follow-up on her conditions. Blood pressure elevated because she ran out of hydrochlorothiazide. She has rescue inhaler as needed being less than once a month. GERD stable with medications. She is morbidly obese with a BMI of 45.6 and declines weight loss surgery. Was advised to diet and exercise to reach BMI goal less than 30. [facility] Medical History (Updated 10/15/22 @ 18:54 by Beverly Peñaloza MD) Asthma Atopic dermatitis Chronic rhinitis ALIX (obstructive sleep apnea) Surgical History No pertinent past surgical history Family History Mother Hypertension Pre-diabetes Arthritis Father No problems noted. Maternal Grandmother Stroke Social History Housing: House Alcohol intake: current Alcohol intake frequency: a few times a month Alcohol type: wine Patient Tobacco Use Status: Never used Tobacco e-Cigarette/Vaping Use: Never Used Second Hand Smoke Exposure: No service: No Current occupational status: unemployed Cognitive needs: No Hearing needs: No Vision needs: Yes Questionnaire Thrive Questionnaire Date Thrive assessed: 05/21/22 KEKE-7 AMB Questionnaire KEKE-7 Date KEKE - 7 assessed: 05/21/22 Source: Developed by Drs. Lavelle Alvarez, Stacey Johns, Dwight Davis and colleagues, with an educational karen from [employer]. Review of Systems Const All systems reviewed & are unremarkable except as noted in HPI and below Eyes Reports no additional complaints, Denies change in vision and Denies other visual disturbances Card Denies chest pain at rest, Denies chest pain with activity, Denies edema, Denies irregular heart rhythm, Denies claudication, Denies dyspnea, Denies dyspnea on exertion, Denies orthopnea, Denies paroxysmal nocturnal dyspnea and Denies slow heart rate Resp Denies cough, Denies dyspnea and Denies dyspnea on exertion GI Denies abdominal pain, Denies change in bowel habits, Denies excessive flatus, Denies nausea and Denies vomiting Denies urinary incontinence, Denies urinary hesitancy and Denies urinary urgency Musc Denies abnormal gait, Denies atrophy, Denies deformity and Denies limited range of motion Skin/Breast Denies bleeding lesions, Denies changing lesions and Denies rash Neuro Denies abnormal gait and Denies lack of coordination Physical exam (Primary Care) Vital Signs: Last Vital Signs BP 140/110 H 10/15/22 16:53 BMI result Body Mass Index 45.6 Tobacco/Smoking Status: Tobacco use Status Tobacco use date assessed 05/21/22 10/15/22 16:58 Patient Tobacco Use Status Never used Tobacco 10/15/22 16:58 e-Cigarette/Vaping Use Never Used 10/15/22 16:58 Thrive Assessment: Date of Thrive Assessment Date Thrive assessed 05/21/22 10/15/22 16:58 Eyes General: appearance normal, both eyes and all related structures Eyelids: Yes eyelids normal Conjunctivae: conjunctivae normal Neck Neck: Yes normal visual inspection and Yes supple Resp Effort & Inspection: normal respiratory effort Auscultation: clear to auscultation bilaterally Cardio Jugular venous distension: no JVD Rate: regular rate Rhythm: regular rhythm Heart sounds: S1 normal heart sound present and S2 normal heart sound present Extrem General: Yes full ROM Assessment and Plan Assessment & Plan (1) Uncontrolled hypertension: Code(s): I10 - Essential (primary) hypertension Plan: Continue hydrochlorothiazide. Blood pressure goal is equal or less than 130/80. Recheck blood pressure with nurse navigator in 3 weeks. (2) Asthma: Code(s): J45.909 - Unspecified asthma, uncomplicated Qualifiers: Asthma severity: mild Asthma persistence: intermittent Asthma complication type: uncomplicated Qualified Code(s): J45.20 - Mild intermittent asthma, uncomplicated Plan: Use rescue inhaler as needed (3) Chronic GERD: Code(s): K21.9 - Gastro-esophageal reflux disease without esophagitis Plan: Continue PPIs as needed (4) Morbid obesity with BMI of 45.0-49.9, adult: Code(s): E66.01 - Morbid (severe) obesity due to excess calories; Z68.42 - Body mass index [BMI] 45.0-49.9, adult Plan: Start diet and exercise. BMI goal is less than 30. Orders: Orders Comprehensive [place]. Panel Fast Today I10 - Essential (primary) hypertension Lipid Panel Today E78.5 - Hyperlipidemia, unspecified, I10 - Essential (primary) hypertension Medications: New hydrochlorothiazide 25 mg PO DAILY 90 tabs 1RF 90 days I10 - Essential (primary) hypertension Coding Level of Care Code Est Pt Level 4 (76600) Diagnoses Uncontrolled hypertension I10 Asthma J45.20 Asthma severity: mild Asthma persistence: intermittent Asthma complication type: uncomplicated Chronic GERD K21.9 Morbid obesity with BMI of 45.0-49.9, adult E66.01; Z68.42 Time Spent (min) 22
[2022-10-15 18:52] VITALS: BP 140/100
== END 2022-10-15 17:18 | disposition home or self-care (01) ==
PROVIDERS: PCP Internal Medicine; Visit Provider Internal Medicine
DX: I10 Essential (primary) hypertension (principal); J45.20 Mild intermittent asthma, uncomplicated; E66.01 Morbid (severe) obesity due to excess calories; Z68.42 Body mass index [BMI] 45.0-49.9, adult; K21.9 Gastro-esophageal reflux disease without esophagitis
CPT/HCPCS: 99214

== ENCOUNTER 2023-04-01 10:51 | Outpatient (AMB) | payer OTHER, SELFPAY ==
[2023-04-01 11:31] VITALS: BP 132/90; PULSE 110; RESP 16; TEMP 37.1; O2SAT 98; BMI 36.4
--- NOTE | 2023-04-01 11:31 | AM.OFFWIN_ITS ---
Intake Vital Signs 04/01/23 11:31 Height 5 ft 5 in Weight 219 lb BMI 36.4 BP 132/90 H Blood Pressure Location Lt brachial Position Sitting Respiration 16 Pulse 110 H Pulse Source Pulse Oximeter Temp 98.7 F Temp Source Oral Pulse Oximetry (%) 98 Oxygen Delivery Method Room Air Intake Visit Reasons: cough,stuffy nose,fever [phone] Intake Note: Patient reports she thinks she has the flu, patient states her symptoms are cough, stuffy nose, fever, nausea, body aches. Patient reports these symptoms starts 2 days ago. Patient denies testing at home. 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 Accompanied by: Self / Same As Patient Allergies dust mite Allergy (Mild, Uncoded 04/01/23 11:43) stuffy nose, cough Medication List - Last Reconciled 04/01/23 by Lois Nance, [facility] fluticasone propionate 50 mcg/actuation 2 sprays intranasal DAILY 30 days omeprazole 20 mg PO DAILY 90 days Do you need a note to return to daycare/school/sports/work: Yes HPI HPI Comments History of Present Illness Details worried she has a flu no flu shot this season exposed to sick contacts sx include fever, headache, body aches, weakness, stuffy nose, blocked ears, cough, sore throat tx at home: apap with some relief of sx. Nyquil w/o effect. does have asthma no active inhalers PFSH Medical History Asthma Atopic dermatitis Chronic rhinitis ALIX (obstructive sleep apnea) Surgical History No pertinent past surgical history Family History Mother Hypertension Pre-diabetes Arthritis Father No problems noted. Maternal Grandmother Stroke Social History Housing: House Alcohol intake: current Alcohol intake frequency: a few times a month Alcohol type: wine Patient Tobacco Use Status: Never used Tobacco e-Cigarette/Vaping Use: Never Used Second Hand Smoke Exposure: No service: No Current occupational status: unemployed Cognitive needs: No Hearing needs: No Vision needs: Yes Review of Systems Const All systems reviewed & are unremarkable except as noted in HPI and below Physical Exam Vital Signs: Last Vital Signs Temp 98.7 F 04/01/23 11:31 Pulse 110 H 04/01/23 11:31 Resp 16 04/01/23 11:31 BP 132/90 H 04/01/23 11:31 Pulse Ox 98 04/01/23 11:31 Oxygen Delivery Method Room Air 04/01/23 11:31 BMI result Body Mass Index 36.4 Const Other: awake alert nad conjunctiva and sclera clear bilat tm intact, mild bulging w/o loss of landmarks bilat sinuses wnl pharynx wnl RRR faint exp wheeze bll Assessment & Plan Assessment & Plan (1) Flu-like symptoms: Code(s): R68.89 - Other general symptoms and signs Plan: . (2) Asthma: Code(s): J45.909 - Unspecified asthma, uncomplicated Qualifiers: Asthma complication type: uncomplicated Asthma persistence: intermittent Asthma severity: mild Qualified Code(s): J45.20 - Mild intermittent asthma, uncomplicated Plan . Orders: Orders SARS-CoV2/FLU/RSV Today R68.89 - Other general symptoms and signs Medications: New benzonatate 100 mg PO TID 10 days PRN 30 caps 1RF cough albuterol sulfate 90 mcg/actuation 2 puffs inhalation Q4-6H 30 days PRN 8.5 grams 0RF shortness of breath or wheezing Refilled fluticasone propionate 50 mcg/actuation 2 sprays intranasal DAILY 30 days 15.8 mL 11RF J31.0 - Chronic rhinitis Patient Instructions: viral swab obtained today results to be posted to portal aware viral and no need for addl meds such as ab follow current cdc guidelines work note given edu on reasons to RTO Coding Level of Care Code Est Pt Level 4 (82536) Diagnoses Flu-like symptoms R68.89 Mild intermittent asthma without complication J45.20 Asthma complication type: uncomplicated Asthma persistence: intermittent Asthma severity: mild Time Spent (min) 30 Comment tx plan, cdc guidelines, review of record
== END 2023-04-01 11:58 | disposition home or self-care (01) ==
PROVIDERS: PCP Internal Medicine; Visit Provider Nurse Practitioner Family
DX: R68.89 Other general symptoms and signs (principal); J45.20 Mild intermittent asthma, uncomplicated
CPT/HCPCS: 99214

== ENCOUNTER 2023-04-01 14:17 | Outpatient (REF) | payer OTHER, SELFPAY ==
[2023-04-01 15:25] LABS: Influenza A PCR NEGATIVE (Negative); Influenza B PCR NEGATIVE (Negative); Resp Syncy Virus RNA Qual PCR NEGATIVE (Negative); SARS COV2 PCR INHOUSE POSITIVE (Negative)
== END 2023-04-01 14:18 | disposition home or self-care (01) ==
LOC: HO.LNP 14:17
PROVIDERS: Visit Provider Nurse Practitioner Family
DX: Z11.52 Encounter for screening for COVID-19 (principal); Z20.822 Contact with and (suspected) exposure to COVID-19; R68.89 Other general symptoms and signs
CPT/HCPCS: 0241U

== ENCOUNTER 2023-08-25 09:10 | Outpatient (AMB) | payer OTHER, SELFPAY ==
--- NOTE | 2023-08-25 09:17 | A.OFFPC_ITS ---
Vital Signs 08/25/23 09:22 08/25/23 09:29 Height 5 ft 5.16 in Weight 266 lb 6 oz BMI 44.1 BP 130/98 H 122/88 Blood Pressure Location Lt brachial Rt radial Position Sitting Respiration 16 Pulse 84 Pulse Source Pulse Oximeter Temp 98.1 F Temp Source Oral Pulse Oximetry (%) 96 Oxygen Delivery Method Room Air Intake Visit Reasons: est care/ stuffy nose/continual cough Intake Note: New patient visit. Stuffy nose on and off for a year, and cough ongoing since March. 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: No Allergies dust mite Allergy (Mild, Uncoded 08/25/23 09:32) stuffy nose, cough Medication List - Last Reconciled 08/25/23 by SAL SchultzP- albuterol sulfate 90 mcg/actuation 2 puffs inhalation Q6H PRN Tobacco use date assessed: 08/25/23 Dental Screening Dental Screen Date: 08/25/23 Did you have a dental visit in the last 12 months?: Yes Did you have a dental problem in the last 6 months where you did not have access to dental care?: No Was dental information given to patient?: Patient has dentist HPI HPI Comments History of Present Illness Details 23-year-old female with major depressive disorder, morbid obesity, mild intermittent asthma, GERD, hypertension, seasonal allergies, atopic dermatitis, scoliosis, KEKE, Iron Def anemia, hepatic steatosis (07/28/22 Abd CTA), PCOS Social: born in 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 Unsure if this was done. Sleep study for 06/2022 negative for ALIX, 07/2022 CTA of ABD r/o renal artery stenosis PFT 06/2021 Here today to est care w c/o chronic sinus congestion, feels like only has a few hours where she doesnt feel congested Lungs are bad - lots of mucous at HS - wheezing when laying down at night. Also having a cough. Using KELBY inhaler and cough drops. Saw Pulm in the past, no longer being ff'd. Thinks she may have been allergy tested in the past. Not currently using any nasal sprays. Tried antihistamines in the past w/o effect. Would like referral to ENT for further eval and tx. Has PCOS. Dx by Obgyn. Wants to see Endo. Wt loss - hard time losing wt. Exercising best she can. > Defer to Endo for mgmt MDD/KEKE was working w counselor in the past; she left; would like new referral. Was on meds in the past, reports 4-5. Was on Venlafaxine with + effect. Had to stop as her prescriber left. Wishes to work with [facility] for counseling and med mgmt. [facility] Medical History (Updated 08/25/23 @ 10:55 by Lois Nance, [facility]) Uncontrolled hypertension Abnormal stress test Acid reflux Sinusitis ALIX (obstructive sleep apnea) Chronic rhinitis Atopic dermatitis Asthma Surgical History No pertinent past surgical history Family History (Updated 08/25/23 @ 09:25 by Iona Nichols CMA) Mother Hypertension Pre-diabetes Arthritis Father Hypertension Maternal Grandmother Stroke Maternal Grandfather Diabetes Alcoholism Social History (Updated 08/25/23 @ 09:22 by Iona Nichols CMA) Housing: House Alcohol intake: current Alcohol intake frequency: a few times a month Alcohol type: wine Patient Tobacco Use Status: Never used Tobacco e-Cigarette/Vaping Use: Never Used Second Hand Smoke Exposure: No service: No Current occupational status: unemployed Cognitive needs: No Hearing needs: No Vision needs: Yes Questionnaire PHQ-9 Over the last 2 weeks, how often have you been bothered by any of the following problems? 1. Little interest or pleasure in doing things: several days 2. Feeling down, depressed, or hopeless: more than half the days 3. Trouble falling or staying asleep, or sleeping too much: nearly every day 4. Feeling tired or having little energy: nearly every day 5. Poor appetite or overeating: several days 6. Feeling bad about yourself - or that you are a failure or have let yourself or your family down: several days 7. Trouble concentrating on things, such as reading the newspaper or watching television: more than half the days 8. Moving or speaking so slowly that other people could have noticed. Or the opposite - being so fidgety or restless that you have been moving around a lot more than usual: more than half the days 9. Thoughts that you would be better off or of hurting yourself in some way: not at all Total score: 15 Depression Screening Interpretation: Positive Depression Screening Follow-up: Existing condition and Community Mental Health Worker F/U Depression Screening Done: Yes 56473 - PHQ-9 Billing: Yes Source: Developed by Drs. Lavelle Alvarez, Stacey Johns, Dwight Davis and colleagues, with an educational karen from [employer]. Thrive Questionnaire Date Thrive assessed: 08/25/23 I am a: Patient What is your living situation today?: I have a steady place to live Within the past 12 months, did the food you bought not last and you didn't have the money to get more?: Never true Within the past 12 months, did you worry whether your food would run out before you got money to buy more?: Never true Do you have trouble paying for medicines?: No Do you have trouble getting transportation to medical appointments?: No Do you have trouble paying your heating and electricity bill?: No Do you have trouble taking care of your child, family member or friend?: No Do you have trouble with day-to-day activities such as bathing, preparing meals, shopping, managing finances, etc.?: No Are you currently unemployed and looking for a job?: No Are you interested in more education?: No Please select the resources that you would like help with: None Currently or been in a relationship where the following occur: no concerns reported THRIVE Score: 0 AUDIT C Alcohol Use Questionnaire (AUDIT-C) 1. How often do you have a drink containing alcohol?: Monthly or less 2. How many drinks containing alcohol do you have on a typical day when you are drinking?: 1 or 2 3. How often do you have six or more drinks on one occasion?: Never Total Score: 1 Score Reviewed/Action Taken: Yes KEKE-7 AMB Questionnaire KEKE-7 Date KEKE - 7 assessed: 08/25/23 Feeling nervous, anxious, or on edge: 3 = Nearly every day Not being able to stop or control worryin = More than half the days Worrying too much about different things: 2 = More than half the days Trouble relaxin = More than half the days Being so restless that it is hard to sit still: 2 = More than half the days Becoming easily annoyed or irritable: 2 = More than half the days Feeling afraid as if something awful might happen: 2 = More than half the days Total KEKE-7 score (0-4 normal; 5-9 mild; 10-14 moderate; 15-21 severe): 15 Source: Developed by Drs. Lavelle Alvarez, Stacey Johns, Dwight Davis and colleagues, with an educational karen from [employer]. KEKE-7 Assessment Billing KEKE-7 Assessment Tool: KEKE-7 Assessment 13649 Review of Systems Const All systems reviewed & are unremarkable except as noted in HPI and below Physical exam (Primary Care) Vital Signs: Last Vital Signs Temp 98.1 F 08/25/23 09:22 Pulse 84 08/25/23 09:22 Resp 16 08/25/23 09:22 BP 122/88 08/25/23 09:29 Pulse Ox 96 08/25/23 09:22 Oxygen Delivery Method Room Air 08/25/23 09:22 BMI result Body Mass Index 44.1 BMI Assessment/Plan discussion: High BMI High, discussed plan: lifestyle Tobacco/Smoking Status: Tobacco use Status Tobacco use date assessed 08/25/23 08/25/23 09:27 Patient Tobacco Use Status Never used Tobacco 08/25/23 09:22 e-Cigarette/Vaping Use Never Used 08/25/23 09:22 PHQ-9: PHQ-9 Score PHQ-9: Total score 15 08/25/23 09:46 Depression Screening Interpretation: Positive Depression Screening Follow-up: Existing condition and Community Mental Health Worker F/U Thrive Assessment: Date of Thrive Assessment Date Thrive assessed 08/25/23 08/25/23 09:32 Currently or been in a relationship where the following occur: no concerns reported Const Other: Awake alert NAD Sclera and conjunctiva clear bilat Nares mild congestion, turbinates pale and edematous, no sinus tenderness with palpation bilat TM intact and clear bilat MMM, pharynx WNL RRR LS CTAB Mood and affect appropriate Assessment and Plan Assessment & Plan (1) Chronic rhinitis: Code(s): J31.0 - Chronic rhinitis (2) PCOS (polycystic ovarian syndrome): Code(s): E28.2 - Polycystic ovarian syndrome (3) Mild major depression: Code(s): F32.0 - Major depressive disorder, single episode, mild (4) KEKE (generalized anxiety disorder): Code(s): F41.1 - Generalized anxiety disorder (5) Atopic dermatitis: Code(s): L20.9 - Atopic dermatitis, unspecified Qualifiers: Atopic dermatitis type: unspecified Qualified Code(s): L20.9 - Atopic dermatitis, unspecified (6) Morbid obesity with BMI of 40.0-44.9, adult: Code(s): E66.01 - Morbid (severe) obesity due to excess calories; Z68.41 - Body mass index [BMI] 40.0-44.9, adult (7) Iron deficiency anemia: Code(s): D50.9 - Iron deficiency anemia, unspecified Qualifiers: Iron deficiency anemia type: inadequate dietary iron intake Qualified Code(s): D50.8 - Other iron deficiency anemias Plan This note is constructed using voice recognition software. While every effort has been made to ensure accuracy in material disposition inspector, still errors may have been included Sometimes, these errors may affect the content or meaning of the given sentence . Total time spent caring for the patient today was 50 minutes. This includes time spent before the visit reviewing the chart, time spent during the visit, and time spent after the visit on documentation Orders: Orders Hemoglobin A1c Today D50.9 - Iron deficiency anemia, unspecified, E66.01 - Morbid (severe) obesity due to excess calories, Z68.41 - Body mass index [BMI] 40.0-44.9, adult LDL Cholesterol Direct Today D50.9 - Iron deficiency anemia, unspecified, E66.01 - Morbid (severe) obesity due to excess calories, Z68.41 - Body mass index [BMI] 40.0-44.9, adult Complete Blood Count no Diff Today D50.9 - Iron deficiency anemia, unspecified, E66.01 - Morbid (severe) obesity due to excess calories, Z68.41 - Body mass index [BMI] 40.0-44.9, adult Vitamin D 1,25 dihydroxy Today D50.9 - Iron deficiency anemia, unspecified, E66.01 - Morbid (severe) obesity due to excess calories, Z68.41 - Body mass index [BMI] 40.0-44.9, adult Microalbumin, Random (w Creat) Today D50.9 - Iron deficiency anemia, unspecified, E66.01 - Morbid (severe) obesity due to excess calories, Z68.41 - Body mass index [BMI] 40.0-44.9, adult Comprehensive Met. Panel Today D50.9 - Iron deficiency anemia, unspecified, E66.01 - Morbid (severe) obesity due to excess calories, Z68.41 - Body mass index [BMI] 40.0-44.9, adult IRON PROFILE Today D50.9 - Iron deficiency anemia, unspecified, E66.01 - Morbid (severe) obesity due to excess calories, Z68.41 - Body mass index [BMI] 40.0- 44.9, adult TSH reflex Free T4 Today D50.9 - Iron deficiency anemia, unspecified, E66.01 - Morbid (severe) obesity due to excess calories, Z68.41 - Body mass index [BMI] 40.0-44.9, adult Referrals Counseling Referral F32.0 - Major depressive disorder, single episode, mild, F41.1 - Generalized anxiety disorder Ear/Nose/Throat Referral J31.0 - Chronic rhinitis Endocrinology Referral E28.2 - Polycystic ovarian syndrome Dermatology Referral L20.9 - Atopic dermatitis, unspecified Patient Instructions: Plan will be to refer to Derm to atopic dermatitis ENT for allergy testing and sinus sx mgmt. Refer to [facility] for wt mgmt and PCOS MDD/KEKE - refer to counseling. offered meds, declines. Wishes to work w [facility] Tdap today Update labs - not currently on Iron supplement. Noted anemia in the past. Cont PRN KELBY, PFT negative for asthma breathing issues more c/w obesity and extrathoracic cause Not on HTN meds, was on HCTZ in past, currently at goal w/o meds RTO in 6 months for CPE, sooner as needed Coding Level of Care Code Est Pt Level 5 (98978) Diagnoses Chronic rhinitis J31.0 PCOS (polycystic ovarian syndrome) E28.2 Mild major depression F32.0 KEKE (generalized anxiety disorder) F41.1 Atopic dermatitis, unspecified type L20.9 Atopic dermatitis type: unspecified Morbid obesity with BMI of 40.0-44.9, adult E66.01; Z68.41 Iron deficiency anemia secondary to inadequate dietary iron intake D50.8 Iron deficiency anemia type: inadequate dietary iron intake Additional Codes KEKE-7 Assessment Billing - KEKE-7 Assessment Tool: KEKE-7 Assessment 33659 ([id number])
[2023-08-25 09:22] VITALS: BP 130/98; PULSE 84; RESP 16; TEMP 36.7; O2SAT 96; BMI 44.1
[2023-08-25 09:29] VITALS: BP 122/88
== END 2023-08-25 10:13 | disposition home or self-care (01) ==
PROVIDERS: PCP Internal Medicine; Visit Provider Nurse Practitioner Family
DX: F32.0 Major depressive disorder, single episode, mild (principal); E66.01 Morbid (severe) obesity due to excess calories; Z68.41 Body mass index [BMI] 40.0-44.9, adult; Z23 Encounter for immunization; J31.0 Chronic rhinitis; E28.2 Polycystic ovarian syndrome; F41.1 Generalized anxiety disorder; L20.9 Atopic dermatitis, unspecified; D50.8 Other iron deficiency anemias
CPT/HCPCS: 90471; 90715; 99215

== ENCOUNTER 2023-08-25 10:19 | Outpatient (REF) | payer OTHER, SELFPAY ==
[2023-08-25 12:19] LABS: Hematocrit 42.7 % (37.0-47.0); Hemoglobin 14.7 g/dl (12.0-16.0); Mean Corpuscular HGB Conc 34.4 g/dl (31.0-35.0); Mean Corpuscular Hemoglobin 28.4 pg (27.0-33.0); Mean Corpuscular Volume 82.4 fL (80.0-98.0); Platelet Count 269 X10*3/uL (160-400); Red Blood Count 5.18 X10*6/uL (4.20-5.50); Red Cell Distribution Width 13.2 % (11.0-16.0); White Blood Count 7.7 X10*3/uL (4.8-10.8)
[2023-08-25 12:34] LABS: Estimated Average Glucose 105 mg/dL; Hemoglobin A1c % 5.3 % (<6.0)
[2023-08-25 13:20] LABS: Alanine Aminotransferase 28 U/L (0-31); Albumin Level 4.2 g/dL (3.5-5.0); Alkaline Phosphatase 74 U/L (39-117); Anion Gap 16 (12-20); Aspartate Amino Transferase 20 U/L (5-31); Bilirubin Total 0.4 mg/dL (0.0-1.0); Blood Urea Nitrogen 8 mg/dL (9-16); Calcium 9.5 mg/dL (8.4-10.2); Carbon Dioxide 24 mmol/L (22-29); Chloride 104 mmol/L (96-108); Estimated Glomerular Filt Rate > 60; Glucose Random 89 mg/dL (60-115); Iron 84 mcg/dL (30-160); Percent Iron Saturation 27 % (15-50); Potassium 3.5 mmol/L (3.3-5.1); Sodium 140 mmol/L (135-145); Total Iron Binding Capacity 315 mcg/dL (228-428); Total Protein 7.5 g/dL (6.5-8.0); Unsaturated Iron Binding 231 ug/dL
[2023-08-25 13:37] LABS: TSH reflex Free T4 1.88 uIU/mL (0.32-4.0)
[2023-08-25 15:39] LABS: Creatinine Urine 65.63 mg/dL; Microalbum/Creatinine Ratio Ur 45.7 ug/mg cr (<30)
[2023-08-26 19:59] LABS: LDL Cholesterol Direct 173 mg/dL (<100)
[2023-08-30 06:29] LABS: VITAMIN D (1,25 OH) D3 64 pg/mL; Vit D (1,25-Dihydroxy) Total 64 pg/mL (18-72); Vitamin D (1,25 OH) D2 <8 pg/mL
== END 2023-08-25 10:20 | disposition home or self-care (01) ==
LOC: HO.WFDLDS 10:19
PROVIDERS: Visit Provider Nurse Practitioner Family
DX: E66.01 Morbid (severe) obesity due to excess calories (principal); Z68.41 Body mass index [BMI] 40.0-44.9, adult; D50.9 Iron deficiency anemia, unspecified
CPT/HCPCS: 36415; 80053; 82043; 82570; 82652; 83036; 83540; 83721; 84443; 85027

== ENCOUNTER 2023-09-16 10:36 | Outpatient (AMB) | payer OTHER, SELFPAY ==
[2023-09-16 10:51] VITALS: BMI 44.0
--- NOTE | 2023-09-16 10:51 | A.OFFVIS_ITS ---
VS Expanded 09/16/23 10:51 09/22/23 08:44 Height 5 ft 5 in 5 ft 5 in Weight 264 lb 8.875 oz 264 lb BMI 44.0 43.9 Intake Visit Reasons: Hyperlipidemia/CONFIRMED Allergies dust mite Allergy (Mild, Uncoded 08/25/23 09:32) stuffy nose, cough Nutrition Presentation Details: Pt presents for MNT for hyperlipidemia, obesity. Pt was referred by PCP, Екатерина Nance. Pt reports d/t PCOS Pt is working on reducing on gluten and dairy Typical meal B: eggs and protein shake 3pm soup (meat borscht) 11pm : non starchy egetables food frequency fish : not including /dislikes nuts/seeds: adds once/day fruits: 3 /day dairy: almond milk 1-2 cups/d cheese BS Monitoring Most Recent Diabetes Results: Microalb/Creat Ratio 45.7 ug/mg cr (<30) H 08/25/23 Creatinine 0.69 mg/dL (0.5-1.4) 08/25/23 Blood Urea Nitrogen 8 mg/dL (9-16) L 08/25/23 Sodium 140 mmol/L (135-145) 08/25/23 Potassium 3.5 mmol/L (3.3-5.1) 08/25/23 Chloride 104 mmol/L (96-108) 08/25/23 Carbon Dioxide 24 mmol/L (22-29) 08/25/23 Calcium 9.5 mg/dL (8.4-10.2) 08/25/23 AST 20 U/L (5-31) 08/25/23 ALT 28 U/L (0-31) 08/25/23 Total Protein 7.5 g/dL (6.5-8.0) 08/25/23 Albumin 4.2 g/dL (3.5-5.0) 08/25/23 MBO-Nklttes-Pw.Jeor Equation Height: 5 ft 5 in Weight: 264 lb Resting Metabolic Rate: 1949.08 Calculated Activity Level: Sedentary Calories Needed to Maintain Weight: 2338.90 Diagnosis Nutrition problem #1: food nutri know defi As related to (etiology) #1: diagnosis As evidenced by (sign/symptom) #1: knowledge deficit of diet [facility] Medical History (Updated 09/03/23 @ 19:10 by Lois Nance, [facility]) Uncontrolled hypertension Abnormal stress test Acid reflux Sinusitis ALIX (obstructive sleep apnea) Chronic rhinitis Atopic dermatitis Asthma Surgical History No pertinent past surgical history Family History (Updated 08/25/23 @ 09:25 by Iona Nichols CMA) Mother Hypertension Pre-diabetes Arthritis Father Hypertension Maternal Grandmother Stroke Maternal Grandfather Diabetes Alcoholism Social History (Updated 08/25/23 @ 09:22 by Iona Nichols CMA) Housing: House Alcohol intake: current Alcohol intake frequency: a few times a month Alcohol type: wine Patient Tobacco Use Status: Never used Tobacco e-Cigarette/Vaping Use: Never Used Second Hand Smoke Exposure: No service: No Current occupational status: unemployed Cognitive needs: No Hearing needs: No Vision needs: Yes Assessment & Plan Assessment & Plan (1) Hyperlipemia: Code(s): E78.5 - Hyperlipidemia, unspecified Category: Medical Plan: Wt: 120 Kg ( 09/2023 ) Est kcal needs as per MSJ: 2300 (40% carb, 30% protein/fat) Est fluid needs as per 30 ml/d: 3600 Est prot per day as per 1 g/kg bw: 120 Recommend fiber intake : 8-10 g per day and gradually increase to 25-28 g per day for women and 35-38 g for men or as tolerated Recommend sodium intake per day : less than 2000 mg Educated patient on: ( R = reviewed V = verbalizes understanding N/R = needs review N/A = not applicable * Food sources of carbohydrate, adequate serving sizes and its role in various health conditions: * Differences between complex carbohydrates a simple carbohydrates, role of fiber in diet: R * Lean protein sources of foods: R * Differences between types of fats and role in diet (mono on saturated fat fatty acids, saturated fatty acids, trans fats): R * Food sources of sodium in salt and healthy modifications for heart health in kidney health: R V R/V * Vitamins and minerals: R V N/R * Healthy plate method concept: R * Physical activity: Benefits a precaution: R V N/R Patient Instructions: Incorporate high fiber foods in your diet: gradually switch to whole grain foods, include vegetables in your diet Work on reducing processed foods: choose grilled chicken/tender vs breaded, choose fruit in place of fruit snack, see meal ideas as reference Coding Level of Care Code Nutr Indiv Intake (34608) Diagnoses Hyperlipemia E78.5 Time Spent (min) 30
[2023-09-22 08:44] VITALS: BMI 43.9
== END 2023-09-16 11:41 | disposition home or self-care (01) ==
PROVIDERS: PCP Internal Medicine; Visit Provider Dietitian, Registered
DX: E78.5 Hyperlipidemia, unspecified (principal)

== ENCOUNTER → 2023-09-16 10:36 | Outpatient (BNVA) | payer OTHER, SELFPAY | PROVIDERS: PCP Internal Medicine; Visit Provider Dietitian, Registered | DX: E78.5 Hyperlipidemia, unspecified (principal); E66.9 Obesity, unspecified; Z68.41 Body mass index [BMI] 40.0-44.9, adult; Z71.3 Dietary counseling and surveillance | CPT/HCPCS: 97802 ==

== ENCOUNTER 2023-09-16 11:51 | Outpatient (REF) | payer OTHER, SELFPAY ==
--- NOTE | ~2023-09-16 | XR_ITS ---
EXAMINATION: XR SINUSES CLINICAL INFORMATION: Chronic rhinitis. COMPARISON: None available. TECHNIQUE: 5 views of the sinuses. FINDINGS: No significant air-fluid levels identified in the maxillary sinuses. Frontal sinuses are aerated. XR/XR sinus min 3V IMPRESSION: 1. No significant air-fluid levels identified in the maxillary sinuses. Frontal sinuses are aerated. 2. Dedicated CT scan of the paranasal sinuses recommended if there is concern for sinus disease, facial bone fracture or other intracranial pathology as CT scan is much more sensitive for evaluation of intracranial pathology.
== END 2023-09-16 11:52 | disposition home or self-care (01) ==
LOC: HO.XRAY 11:51
PROVIDERS: PCP Nurse Practitioner Family; Visit Provider Nurse Practitioner Family
DX: J31.0 Chronic rhinitis (principal)
CPT/HCPCS: 70220

== ENCOUNTER 2023-10-27 10:03 | Outpatient (AMB) | payer OTHER, SELFPAY ==
[2023-10-27 10:09] VITALS: BMI 44.4
--- NOTE | 2023-10-27 10:09 | A.OFFVIS_ITS ---
VS Expanded 10/27/23 10:09 Height 5 ft 5 in Weight 266 lb 12.149 oz BMI 44.4 Intake Visit Reasons: Hyperlipidemia Allergies dust mite Allergy (Mild, Uncoded 08/25/23 09:32) stuffy nose, cough Nutrition Presentation Details: Pt presents for MNT f/u for hyperlipidemia Pt reports working on including fiber rich foods and reducing on sat'd fats , Challenges: parties/ celebrations Physical activity: getting into routine walking 3 time a week , 30 min BS Monitoring Most Recent Diabetes Results: Microalb/Creat Ratio 45.7 ug/mg cr (<30) H 08/25/23 Creatinine 0.69 mg/dL (0.5-1.4) 08/25/23 Blood Urea Nitrogen 8 mg/dL (9-16) L 08/25/23 Sodium 140 mmol/L (135-145) 08/25/23 Potassium 3.5 mmol/L (3.3-5.1) 08/25/23 Chloride 104 mmol/L (96-108) 08/25/23 Carbon Dioxide 24 mmol/L (22-29) 08/25/23 Calcium 9.5 mg/dL (8.4-10.2) 08/25/23 AST 20 U/L (5-31) 08/25/23 ALT 28 U/L (0-31) 08/25/23 Total Protein 7.5 g/dL (6.5-8.0) 08/25/23 Albumin 4.2 g/dL (3.5-5.0) 08/25/23 [facility] Medical History (Updated 09/03/23 @ 19:[address] [facility]) Uncontrolled hypertension Abnormal stress test Acid reflux Sinusitis ALIX (obstructive sleep apnea) Chronic rhinitis Atopic dermatitis Asthma Surgical History No pertinent past surgical history Family History (Updated 08/25/23 @ 09:25 by Iona Nichols CMA) Mother Hypertension Pre-diabetes Arthritis Father Hypertension Maternal Grandmother Stroke Maternal Grandfather Diabetes Alcoholism Social History (Updated 08/25/23 @ 09:22 by Iona Nichols CMA) Housing: House Alcohol intake: current Alcohol intake frequency: a few times a month Alcohol type: wine Patient Tobacco Use Status: Never used Tobacco e-Cigarette/Vaping Use: Never Used Second Hand Smoke Exposure: No service: No Current occupational status: unemployed Cognitive needs: No Hearing needs: No Vision needs: Yes Assessment & Plan Assessment & Plan (1) Hyperlipemia: Code(s): E78.5 - Hyperlipidemia, unspecified Category: Medical Plan: Wt: 120 Kg ( 09/2023 ), 121 kg(10/2023) Est kcal needs as per MSJ: 2300 (40% carb, 30% protein/fat) Est fluid needs as per 30 ml/d: 3600 Est prot per day as per 1 g/kg bw: 120 Recommend fiber intake : 8-10 g per day and gradually increase to 25-28 g per day for women and 35-38 g for men or as tolerated Recommend sodium intake per day : less than 2000 mg Educated patient on: ( R = reviewed V = verbalizes understanding N/R = needs review N/A = not applicable * Food sources of carbohydrate, adequate serving sizes and its role in various health conditions: * Differences between complex carbohydrates a simple carbohydrates, role of fiber in diet: R * Lean protein sources of foods: R * Differences between types of fats and role in diet (mono on saturated fat fatty acids, saturated fatty acids, trans fats): R * Food sources of sodium in salt and healthy modifications for heart health in kidney health: R V R/V * Vitamins and minerals: R V N/R * Healthy plate method concept: R * Physical activity: Benefits a precaution: R V N/R Patient Instructions: Continue working replacing pastries and saturated fats for fruit/yogurt/nuts/seeds Continue on increasing physical activity Coding Level of Care Code Nutr Indiv Subseq (36853) Diagnoses Hyperlipemia E78.5 Time Spent (min) 25
== END 2023-10-27 10:39 | disposition home or self-care (01) ==
PROVIDERS: PCP Internal Medicine; Visit Provider Dietitian, Registered
DX: E78.5 Hyperlipidemia, unspecified (principal)

== ENCOUNTER → 2023-10-27 10:03 | Outpatient (BNVA) | payer OTHER, SELFPAY | PROVIDERS: PCP Internal Medicine; Visit Provider Dietitian, Registered | DX: E78.5 Hyperlipidemia, unspecified (principal); Z71.3 Dietary counseling and surveillance | CPT/HCPCS: 97803 ==

== ENCOUNTER 2023-12-08 10:31 | Outpatient (AMB) | payer OTHER, SELFPAY ==
--- NOTE | 2023-12-08 10:33 | A.OFFVIS_ITS ---
VS Expanded 12/08/23 10:34 Height 5 ft 5 in Weight 266 lb 15.677 oz BMI 44.4 Intake Visit Reasons: Hyperlipidemia/CONFIRMED Allergies dust mite Allergy (Mild, Uncoded 08/25/23 09:32) stuffy nose, cough Nutrition Presentation Details: Pt presents for MNT f/u for hyperlipidemia Pt reports working on diet modifications in terms of choosing low fat protein sources of foods Challenges : dessert types of foods, frequent large family gathering BS Monitoring Most Recent Diabetes Results: Microalb/Creat Ratio 45.7 ug/mg cr (<30) H 08/25/23 Creatinine 0.69 mg/dL (0.5-1.4) 08/25/23 Blood Urea Nitrogen 8 mg/dL (9-16) L 08/25/23 Sodium 140 mmol/L (135-145) 08/25/23 Potassium 3.5 mmol/L (3.3-5.1) 08/25/23 Chloride 104 mmol/L (96-108) 08/25/23 Carbon Dioxide 24 mmol/L (22-29) 08/25/23 Calcium 9.5 mg/dL (8.4-10.2) 08/25/23 AST 20 U/L (5-31) 08/25/23 ALT 28 U/L (0-31) 08/25/23 Total Protein 7.5 g/dL (6.5-8.0) 08/25/23 Albumin 4.2 g/dL (3.5-5.0) 08/25/23 [facility] Medical History (Updated 09/03/23 @ 19:10 by Lois Nance [facility]) Uncontrolled hypertension Abnormal stress test Acid reflux Sinusitis ALIX (obstructive sleep apnea) Chronic rhinitis Atopic dermatitis Asthma Surgical History No pertinent past surgical history Family History (Updated 08/25/23 @ 09:25 by Iona Nichols CMA) Mother Hypertension Pre-diabetes Arthritis Father Hypertension Maternal Grandmother Stroke Maternal Grandfather Diabetes Alcoholism Social History (Updated 08/25/23 @ 09:22 by Iona Nichols CMA) Housing: House Alcohol intake: current Alcohol intake frequency: a few times a month Alcohol type: wine Patient Tobacco Use Status: Never used Tobacco e-Cigarette/Vaping Use: Never Used Second Hand Smoke Exposure: No service: No Current occupational status: unemployed Cognitive needs: No Hearing needs: No Vision needs: Yes Assessment & Plan Assessment & Plan (1) Hyperlipemia: Code(s): E78.5 - Hyperlipidemia, unspecified Category: Medical Plan: Wt: 120 Kg ( 09/2023 ), 121 kg(10/2023), 11/2023 Est kcal needs as per MSJ: 2300 (40% carb, 30% protein/fat) Est fluid needs as per 30 ml/d: 3600 Est prot per day as per 1 g/kg bw: 120 Recommend fiber intake : 8-10 g per day and gradually increase to 25-28 g per day for women and 35-38 g for men or as tolerated Recommend sodium intake per day : less than 2000 mg Educated patient on: ( R = reviewed V = verbalizes understanding N/R = needs review N/A = not applicable * Food sources of carbohydrate, adequate serving sizes and its role in various health conditions: * Differences between complex carbohydrates a simple carbohydrates, role of fiber in diet: R * Lean protein sources of foods: R * Differences between types of fats and role in diet (mono on saturated fat fatty acids, saturated fatty acids, trans fats): R * Food sources of sodium in salt and healthy modifications for heart health in kidney health: R V R/V * Vitamins and minerals: R V N/R * Healthy plate method concept: R * Physical activity: Benefits a precaution: R Patient Instructions: Engage in physical activity , goal 150 min per week Continue working on choosing lower floods, modifying recipes to have higher fiber Work on reducing portions sizes to promote weight loss Coding Level of Care Code Nutr Indiv Subseq (84354) Diagnoses Hyperlipemia E78.5 Time Spent (min) 20
[2023-12-08 10:34] VITALS: BMI 44.4
== END 2023-12-08 11:02 | disposition home or self-care (01) ==
PROVIDERS: PCP Internal Medicine; Visit Provider Dietitian, Registered
DX: E78.5 Hyperlipidemia, unspecified (principal)

== ENCOUNTER → 2023-12-08 10:31 | Outpatient (BNVA) | payer OTHER, SELFPAY | PROVIDERS: PCP Internal Medicine; Visit Provider Dietitian, Registered | DX: E78.5 Hyperlipidemia, unspecified (principal); Z71.3 Dietary counseling and surveillance | CPT/HCPCS: 97803 ==

== ENCOUNTER 2024-01-13 13:46 | Outpatient (AMB) | payer OTHER, SELFPAY ==
--- NOTE | 2024-01-13 13:51 | AM.OFFWIN_ITS ---
Intake Vital Signs 01/13/24 13:52 Height 5 ft 5 in Weight 266 lb BMI 44.3 BP 126/90 H Blood Pressure Location Lt brachial Position Sitting Pulse 62 Pulse Source Pulse Oximeter Temp 98.3 F Temp Source Oral Pulse Oximetry (%) 97 Oxygen Delivery Method Room Air Intake Visit Reasons: EP-strep throat Intake Note: Patient here for sore throat, fevers, cough, congestion and headaches. Patient Tobacco Use Status: Never used Tobacco Allergies dust mite Allergy (Mild, Uncoded 01/13/24 13:53) stuffy nose, cough Do you need a note to return to daycare/school/sports/work: Yes HPI EP-strep throat HPI Details This note is constructed using voice recognition software. While every effort has been made to ensure accuracy, machined parts metal sprayer errors may have been included. The patient is a 23 year old female who presents to the clinic today with sore throat, body aches, headache for the past 2 days. She took Tylenol yesterday and today, which seems to have helped the symptoms. She notes that she has had strep throat a lot when she was younger, and the symptoms do feel similar. She denies cough, shortness of breath. [facility] Medical History (Updated 09/03/23 @ 19:10 by ENRIQUE Schultz-) Uncontrolled hypertension Abnormal stress test Acid reflux Sinusitis ALIX (obstructive sleep apnea) Chronic rhinitis Atopic dermatitis Asthma Surgical History No pertinent past surgical history Family History (Updated 08/25/23 @ 09:25 by Iona Nichols CMA) Mother Hypertension Pre-diabetes Arthritis Father Hypertension Maternal Grandmother Stroke Maternal Grandfather Diabetes Alcoholism Social History (Updated 08/25/23 @ 09:22 by Iona Nichols CMA) Housing: House Alcohol intake: current Alcohol intake frequency: a few times a month Alcohol type: wine Patient Tobacco Use Status: Never used Tobacco e-Cigarette/Vaping Use: Never Used Second Hand Smoke Exposure: No service: No Current occupational status: unemployed Cognitive needs: No Hearing needs: No Vision needs: Yes Review of Systems Const All systems reviewed & are unremarkable except as noted in HPI and below Physical Exam Vital Signs: Last Vital Signs Temp 98.3 F 01/13/24 13:52 Pulse 62 01/13/24 13:52 BP 126/90 H 01/13/24 13:52 Pulse Ox 97 01/13/24 13:52 Oxygen Delivery Method Room Air 01/13/24 13:52 BMI result Body Mass Index 44.3 Const General: cooperative, healthy appearing, comfortable and no acute distress Orientation/consciousness: patient oriented x3 Limitations: no limitations HEENT Head: Yes normal to inspection Ears: hearing grossly normal bilaterally, external ears normal and TM's normal bilaterally General nose exam: Normal external nose present, Normal nares present and No nasal discharge present Face and sinus: Yes normal facial exam and Yes sinuses nontender Mouth: Normal oral and palatal mucosa present and moist mucous membranes Throat: Yes tonsils normal, Yes uvula midline and Yes posterior oropharynx abnormal (Erythema) Eyes General: appearance normal, both eyes and all related structures Neck Neck: Yes normal visual inspection Resp Effort & Inspection: normal respiratory effort, able to speak in complete sentences, Actively coughing, no respiratory distress, not tachypneic, no tripod positioning and no use of accessory muscles Auscultation: clear to auscultation bilaterally Cardio Jugular venous distension: no JVD Rate: regular rate Rhythm: regular rhythm Heart sounds: S1 normal heart sound present, S2 normal heart sound present, no click, no gallops, no murmurs and no rubs Skin General skin exam: no rashes or lesions noted, elasticity normal and turgor normal Neuro General: patient oriented x3 Extrem General: Yes normal to inspection and Yes no clubbing, cyanosis or edema Results AMB Rapid Strep AMB Rapid Strep Negative Last Edit by DANIKA Jeong on 01/13/24 14:17 Assessment & Plan Assessment & Plan (1) URI (upper respiratory infection): Code(s): J06.9 - Acute upper respiratory infection, unspecified Qualifiers: URI type: unspecified URI Qualified Code(s): J06.9 - Acute upper respiratory infection, unspecified Plan: In office rapid strep test negative. Viral swab obtained to rule out Covid based on symptoms. Advised mask wearing while symptomatic and quarantine per current CDC guidelines. Reviewed at home support methods including hydration, humidification, vix vapor rub, sinus rinse. Advised follow up with worsening symptoms such as dyspnea at rest, which would require emergent evaluation. Plan See above for full details and plan. Orders: Orders AMB Rapid Strep Screen Today Z13.9 - Encounter for screening, unspecified SARS-CoV2/FLU/RSV Today J06.9 - Acute upper respiratory infection, unspecified Coding Level of Care Code Est Pt Level 3 (36940) Diagnoses Upper respiratory tract infection, unspecified type J06.9 URI type: unspecified URI
[2024-01-13 13:52] VITALS: BP 126/90; PULSE 62; TEMP 36.8; O2SAT 97; BMI 44.3
== END 2024-01-13 14:41 | disposition home or self-care (01) ==
PROVIDERS: PCP Nurse Practitioner Family; Visit Provider Registered Nurse
DX: J06.9 Acute upper respiratory infection, unspecified (principal); Z13.9 Encounter for screening, unspecified

== ENCOUNTER → 2024-01-13 13:46 | Outpatient (BNVA) | payer OTHER, SELFPAY | PROVIDERS: PCP Nurse Practitioner Family; Visit Provider Registered Nurse | DX: J06.9 Acute upper respiratory infection, unspecified (principal) | CPT/HCPCS: 87880 ==

== ENCOUNTER 2024-01-13 16:21 | Outpatient (REF) | payer OTHER, SELFPAY ==
[2024-01-13 17:17] LABS: Influenza A PCR NEGATIVE (Negative); Influenza B PCR NEGATIVE (Negative); Resp Syncy Virus RNA Qual PCR NEGATIVE (Negative); SARS COV2 PCR INHOUSE NEGATIVE (Negative)
== END 2024-01-13 16:22 | disposition home or self-care (01) ==
LOC: HO.HMGCLNP 16:21
PROVIDERS: Visit Provider Registered Nurse
DX: J06.9 Acute upper respiratory infection, unspecified (principal)
CPT/HCPCS: 0241U

== ENCOUNTER 2024-01-18 12:22 | Outpatient (AMB) | payer OTHER, SELFPAY ==
--- NOTE | 2024-01-18 07:46 | MHC.PC.OV ---
Vital Signs 01/18/24 12:28 Height 5 ft 5 in Weight 270 lb 4 oz BMI 45.0 BP 122/72 Blood Pressure Location Lt brachial Position Sitting Respiration 14 Pulse 76 Pulse Source Pulse Oximeter Pulse Oximetry (%) 97 Oxygen Delivery Method Room Air Intake Visit Reasons: menstrual bleeding Intake Note: Patient complaining of that her last menstrual lasted 3 and half months Allergies dust mite Allergy (Mild, Uncoded 01/18/24 12:47) stuffy nose, cough Medication List - Last Reconciled 01/18/24 by Lois Nance, [facility]- albuterol sulfate 90 mcg/actuation 2 puffs inhalation Q6H PRN bupropion HCl SR 100 mg PO QAM spironolactone 25 mg PO DAILY Tobacco use date assessed: 08/25/23 Dental Screening Dental Screen Date: 08/25/23 HPI HPI Comments History of Present Illness Details 23-year-old female with major depressive disorder, morbid obesity, mild intermittent asthma, GERD, hypertension, seasonal allergies, atopic dermatitis, scoliosis, KEKE, Iron Def anemia, hepatic steatosis (07/28/22 Abd CTA), PCOS Social: born in [facility] Dermatology Endo Pulmonology * Cardiology [facility] *no longer ff'd Health Maintenance: assoc pap 2022 Tdap 08/25/23 Imaging: Holter monitor 06/30/2022 showed 80% and tachycardia greater than 100, stress test done recommended stress echo. Unsure if this was done. Sleep study for 06/2022 negative for ALIX, 07/2022 CTA of ABD r/o renal artery stenosis PFT 06/2021 Here today with complaints of menorrhagia No period for 5 months, then bled very heavy for the last 3.5 months. Ended 1 week ago however cont w/ spotting. Has been eating foods high in Iron Denies chest pain, sob or syncope Needs new [facility] referral; last time seen was about 2 years ago in [place] She has PCOS. She was followed by endocrinology. She was prescribed Wegovy which was not covered by her insurance. She reports that her insurance will cover Ozempic and Mounjaro. She wonders if this is something that I can prescribe. Finally she wonders about a diagnosis of ADHD. She reports that she has a med prescriber who recommended her to be evaluated given symptoms. She does not disclose any symptoms to me today. Reports that the insurance will not cover if the testing is done to her current provider. Exam: Awake alert NAD no conjunctival pallor RRR LS CTAB, no orthostasis anathosis nigricans nape of neck Mood and affect appropriate Plan Refer to [facility] at [facility] for menorrhagia Refer to [facility] Endo. Discussed risks and benefits of GLP1. Will defer to Endo on this. Check CBC & A1c today: Labs from today show a normal CBC, normal iron profile, hemoglobin A1c 5.4% Refer to [facility] for ADHD eval RTO as sc scheduled 02/2024, sooner PRN This note is constructed using voice recognition software. While every effort has been made to ensure accuracy in social sciences lecturer, still errors may have been included Sometimes, these errors may affect the content or meaning of the given sentence . Total time spent caring for the patient today was 30 minutes. This includes time spent before the visit reviewing the chart, time spent during the visit, and time spent after the visit on documentation [facility] Medical History (Updated 01/18/24 @ 12:52 by Lois Nance [facility]) Uncontrolled hypertension Abnormal stress test Acid reflux Sinusitis ALIX (obstructive sleep apnea) Chronic rhinitis Atopic dermatitis Asthma Surgical History No pertinent past surgical history Family History (Updated 08/25/23 @ 09:25 by Iona Nichols CMA) Mother Hypertension Pre-diabetes Arthritis Father Hypertension Maternal Grandmother Stroke Maternal Grandfather Diabetes Alcoholism Social History (Updated 08/25/23 @ 09:22 by Iona Nichols CMA) Housing: House Alcohol intake: current Alcohol intake frequency: a few times a month Alcohol type: wine Patient Tobacco Use Status: Never used Tobacco e-Cigarette/Vaping Use: Never Used Second Hand Smoke Exposure: No service: No Current occupational status: unemployed Cognitive needs: No Hearing needs: No Vision needs: Yes Questionnaire PHQ-9 Over the last 2 weeks, how often have you been bothered by any of the following problems? 45692 - PHQ-9 Billing: Patient declined-do not bill Source: Developed by Drs. Lavelle Alvarez, Stacey Johns, Dwight Davis and colleagues, with an educational kaern from [employer]. Thrive Questionnaire Date Thrive assessed: 01/18/24 I am a: Patient What is your living situation today?: I have a steady place to live Within the past 12 months, did the food you bought not last and you didn't have the money to get more?: Never true Within the past 12 months, did you worry whether your food would run out before you got money to buy more?: Never true Do you have trouble paying for medicines?: No Do you have trouble getting transportation to medical appointments?: No Do you have trouble paying your heating and electricity bill?: No Do you have trouble taking care of your child, family member or friend?: No Do you have trouble with day-to-day activities such as bathing, preparing meals, shopping, managing finances, etc.?: I choose not to answer this question Are you currently unemployed and looking for a job?: No Are you interested in more education?: Yes Please select the resources that you would like help with: None Currently or been in a relationship where the following occur: No concerns reported THRIVE Score: 0 AUDIT C Alcohol Use Questionnaire (AUDIT-C) 1. How often do you have a drink containing alcohol?: 2-4 times a month 2. How many drinks containing alcohol do you have on a typical day when you are drinking?: 1 or 2 3. How often do you have six or more drinks on one occasion?: Never Total Score: 2 KEKE-7 AMB Questionnaire KEKE-7 Date KEKE - 7 assessed: 01/18/24 Feeling nervous, anxious, or on edge: 2 = More than half the days Not being able to stop or control worryin = Nearly every day Worrying too much about different things: 3 = Nearly every day Trouble relaxin = More than half the days Being so restless that it is hard to sit still: 2 = More than half the days Becoming easily annoyed or irritable: 2 = More than half the days Feeling afraid as if something awful might happen: 1 = Several days Total KEKE-7 score (0-4 normal; 5-9 mild; 10-14 moderate; 15-21 severe): 15 Source: Developed by Drs. Lavelle Alvarez, Stacey Johns, Dwight Davis and colleagues, with an educational karen from [employer]. KEKE-7 Assessment Billing KEKE-7 Assessment Tool: KEKE-7 Assessment 26162 Physical exam (Primary Care) Vital Signs: Last Vital Signs Pulse 76 01/18/24 12:28 Resp 14 01/18/24 12:28 BP 122/72 01/18/24 12:28 Pulse Ox 97 01/18/24 12:28 Oxygen Delivery Method Room Air 01/18/24 12:28 BMI result Body Mass Index 45.0 Tobacco/Smoking Status: Tobacco use Status Tobacco use date assessed 08/25/23 01/18/24 07:46 Patient Tobacco Use Status Never used Tobacco 01/18/24 07:46 e-Cigarette/Vaping Use Never Used 01/18/24 07:46 Thrive Assessment: Date of Thrive Assessment Date Thrive assessed 01/18/24 01/18/24 12:29 Currently or been in a relationship where the following occur: No concerns reported Coding Level of Care Code Est Pt Level 4 (81858) Complex EM visit Add On G2211 Diagnoses PCOS (polycystic ovarian syndrome) E28.2 Menorrhagia with irregular cycle N92.1 Iron deficiency anemia secondary to inadequate dietary iron intake D50.8 Iron deficiency anemia type: inadequate dietary iron intake Mild major depression F32.0 KEKE (generalized anxiety disorder) F41.1 Morbid obesity with BMI of 40.0-44.9, adult E66.01; Z68.41 Additional Codes KEKE-7 Assessment Billing - KEKE-7 Assessment Tool: KEKE-7 Assessment 43164 ([id number]) Assessment & Plan Assessment & Plan (1) PCOS (polycystic ovarian syndrome): Code(s): E28.2 - Polycystic ovarian syndrome Category: Medical Plan: . (2) Menorrhagia with irregular cycle: Code(s): N92.1 - Excessive and frequent menstruation with irregular cycle Category: Medical Plan: . (3) Iron deficiency anemia: Code(s): D50.9 - Iron deficiency anemia, unspecified Category: Medical Qualifiers: Iron deficiency anemia type: inadequate dietary iron intake Qualified Code(s): D50.8 - Other iron deficiency anemias Plan: . (4) Mild major depression: Code(s): F32.0 - Major depressive disorder, single episode, mild Category: Medical Plan: . (5) KEKE (generalized anxiety disorder): Code(s): F41.1 - Generalized anxiety disorder Category: Medical Plan: . (6) Morbid obesity with BMI of 40.0-44.9, adult: Code(s): E66.01 - Morbid (severe) obesity due to excess calories; Z68.41 - Body mass index [BMI] 40.0-44.9, adult Category: Medical Plan: . Plan . Orders: Orders Hemoglobin A1c Today D50.8 - Other iron deficiency anemias, E28.2 - Polycystic ovarian syndrome, N92.1 - Excessive and frequent menstruation with irregular cycle Complete Blood Count no Diff Today D50.8 - Other iron deficiency anemias, E28.2 - Polycystic ovarian syndrome, N92.1 - Excessive and frequent menstruation with irregular cycle IRON PROFILE Today D50.8 - Other iron deficiency anemias, E28.2 - Polycystic ovarian syndrome, N92.1 - Excessive and frequent menstruation with irregular cycle Referrals Psychiatry Outpatient Consultation Service F32.0 - Major depressive disorder, single episode, mild, F41.1 - Generalized anxiety disorder PROCESS CONTROLLER Referral E28.2 - Polycystic ovarian syndrome, N92.1 - Excessive and frequent menstruation with irregular cycle Endocrinology Referral E28.2 - Polycystic ovarian syndrome, E66.01 - Morbid (severe) obesity due to excess calories, Z68.41 - Body mass index [BMI] 40.0-44.9, adult
[2024-01-18 12:28] VITALS: BP 122/72; PULSE 76; RESP 14; O2SAT 97; BMI 45.0
== END 2024-01-18 13:05 | disposition home or self-care (01) ==
LOC: HO.HMCFM 12:22
PROVIDERS: PCP Nurse Practitioner Family; Visit Provider Nurse Practitioner Family
DX: E28.2 Polycystic ovarian syndrome (principal); F32.0 Major depressive disorder, single episode, mild; E66.01 Morbid (severe) obesity due to excess calories; Z68.41 Body mass index [BMI] 40.0-44.9, adult; N92.1 Excessive and frequent menstruation with irregular cycle; D50.8 Other iron deficiency anemias; F41.1 Generalized anxiety disorder

== ENCOUNTER → 2024-01-18 12:22 | Outpatient (BNVA) | payer OTHER, SELFPAY | PROVIDERS: PCP Nurse Practitioner Family; Visit Provider Nurse Practitioner Family ==

== ENCOUNTER 2024-01-18 13:08 | Outpatient (REF) | payer OTHER, SELFPAY ==
[2024-01-18 14:30] LABS: Hematocrit 38.9 % (37.0-47.0); Hemoglobin 13.1 g/dl (12.0-16.0); Mean Corpuscular HGB Conc 33.7 g/dl (31.0-35.0); Mean Corpuscular Hemoglobin 28.1 pg (27.0-33.0); Mean Corpuscular Volume 83.5 fL (80.0-98.0); Mean Platelet Volume 9.7 fL (9.4-12.3); Platelet Count 265 X10*3/uL (160-400); Red Blood Count 4.66 X10*6/uL (4.20-5.50); Red Cell Distribution Width 12.9 % (11.0-16.0); White Blood Count 7.5 X10*3/uL (4.8-10.8)
[2024-01-18 14:51] LABS: Estimated Average Glucose 108 mg/dL; Hemoglobin A1C 121.9203 umol/L; Hemoglobin A1c % 5.4 % (<6.0); Total Hemoglobin (HGBA1C) 3413.1688 umol/L
[2024-01-18 14:55] LABS: Iron 67 mcg/dL (30-160); Percent Iron Saturation 21 % (15-50); Total Iron Binding Capacity 320 mcg/dL (228-428); Unsaturated Iron Binding 253 ug/dL
== END 2024-01-18 13:09 | disposition home or self-care (01) ==
LOC: HO.WFDLDS 13:08
PROVIDERS: Visit Provider Nurse Practitioner Family
DX: N92.1 Excessive and frequent menstruation with irregular cycle (principal); D50.8 Other iron deficiency anemias; E28.2 Polycystic ovarian syndrome; Z13.1 Encounter for screening for diabetes mellitus
CPT/HCPCS: 36415; 83036; 83540; 85027; 96127

== ENCOUNTER 2024-01-28 10:21 | Outpatient (AMB) | payer OTHER, SELFPAY ==
--- NOTE | 2024-01-28 10:22 | A.OFFVIS_ITS ---
Vital Signs 01/28/24 10:27 Height 5 ft 5 in Weight 258 lb 9.636 oz BMI 43.0 BP 126/86 Blood Pressure Location Lt brachial Position Sitting Pulse 102 H Pulse Source Pulse Oximeter Intake Visit Reasons: PCOS-conf Intake Note: New patient internally referred by PCP for PCOS. Patient reports she is taking Magnesium, Vitamin B, and Fish Oil states she is unsure of the dosages. Ethnographer Required: No Accompanied by: Self / Same As Patient Allergies dust mite Allergy (Mild, Uncoded 01/28/24 10:28) stuffy nose, cough HPI Comments Details: 23 YO Female who is seen in consultation at the request of her PCP for PCOS/Amenorrhea.Saw endo at [facility] . No workup available Menarche was age 9 . Menses have been irregular. at age 16 skips menses 1-2 mos OCP use: placed on non-estrogen BCP but caused wt gain. Metformin use: No Weight gain: wt is steady but no gain recently Hirsutism/hyperandrogenism: On sprronolactone with improvement in facial hair growth Trying to conceive/clomiphene: No Ovarian U/S: Yes 2-3 yrs ago T2DM or acanthosis: grandmother and uncle has Type 2 DM and mom is Type 2 DM +snoring but no sleep apnea diagnosed sees saw edge fuser circular here Sudha Labs: [facility] Medical History (Updated 01/18/24 @ 12:52 by Lois Nance, [facility]) Uncontrolled hypertension Abnormal stress test Acid reflux Sinusitis ALIX (obstructive sleep apnea) Chronic rhinitis Atopic dermatitis Asthma Surgical History No pertinent past surgical history Family History Mother Hypertension Pre-diabetes Arthritis Father Hypertension Maternal Grandmother Stroke Maternal Grandfather Diabetes Alcoholism Social History Housing: House Alcohol intake: current Alcohol intake frequency: a few times a month Alcohol type: wine Patient Tobacco Use Status: Never used Tobacco e-Cigarette/Vaping Use: Never Used Second Hand Smoke Exposure: No service: No Current occupational status: unemployed Cognitive needs: No Hearing needs: No Vision needs: Yes Physical Exam Vital Signs: BMI result Body Mass Index 43.0 Const Other: There are no cushingoid features. Thyroid gland is normal size weighs about 15 g. There is hair growth present under the chin sparsely. There is a presence of acanthosis nigricans behind the neck Assessment & Plan Assessment & Plan (1) PCOS (polycystic ovarian syndrome): Code(s): E28.2 - Polycystic ovarian syndrome Category: Medical Plan: This is a 23-year-old white female with a history of hyperandrogenism most likely due to PCOS. Plan is to check testosterone, DHEA-S, 17 hydroxy progesterone and prolactin to rule out other causes of hyperandrogenism. Assuming above is normal, I told patient discuss with learning and development manager the possibility of going on a estrogen containing control pill to help normalize periods. We talked extensively about weight loss medications including use of G LP 1 G LP 1/GI P Zepbound which would be particularly helpful in light of the patient's fatty liver and metformin. I placed a prescription for Zepbound Orders: Orders Free T4 (Free Thyroxine) Today E28.2 - Polycystic ovarian syndrome Thyroid Stimulating Hormone Today E28.2 - Polycystic ovarian syndrome 17 Hydroxyprogesterone Today E28.2 - Polycystic ovarian syndrome Prolactin Today E28.2 - Polycystic ovarian syndrome Testosterone, Free/Total Today E28.2 - Polycystic ovarian syndrome DHEA Sulfate Today E28.2 - Polycystic ovarian syndrome Medications: New tirzepatide (weight loss) (Zepbound) for 4 weeks 2.5 mg (0.5 mL) subcut QWEEK 2 mL 5RF Coding Level of Care Code New Pt Level 4 (60067) Diagnoses PCOS (polycystic ovarian syndrome) E28.2
[2024-01-28 10:27] VITALS: BP 126/86; PULSE 102; BMI 43.0
== END 2024-01-28 11:14 | disposition home or self-care (01) ==
LOC: HO.ENCR 10:21
PROVIDERS: PCP Nurse Practitioner Family; Visit Provider Internal Medicine Endocrinology, Diabetes & Metabolism
DX: E28.2 Polycystic ovarian syndrome (principal)
CPT/HCPCS: 99204

== ENCOUNTER 2024-02-08 08:18 | Outpatient (REF) | payer OTHER, SELFPAY ==
[2024-02-08 09:59] LABS: Free T4 (Free Thyroxine) 0.96 ng/dL (0.71-1.85); Thyroid Stimulating Hormone 2.15 uIU/mL (0.32-4.0)
[2024-02-09 20:03] LABS: Prolactin 15.2 ng/mL
[2024-02-09 22:03] LABS: DHEA Sulfate 175 mcg/dL (14-349)
[2024-02-13 14:23] LABS: Testosterone, Free 11.3 pg/mL (0.1-6.4); Testosterone, Total 43 ng/dL (2-45)
== END 2024-02-08 08:19 | disposition home or self-care (01) ==
LOC: HO.LAB 08:18
PROVIDERS: PCP Nurse Practitioner Family; Visit Provider Internal Medicine Endocrinology, Diabetes & Metabolism
DX: E28.2 Polycystic ovarian syndrome (principal)
CPT/HCPCS: 36415; 82627; 83498; 84146; 84402; 84403; 84439; 84443

== ENCOUNTER 2024-02-22 09:54 | Outpatient (AMB) | payer OTHER, SELFPAY ==
--- NOTE | 2024-02-22 09:57 | A.OFFPC_ITS ---
Vital Signs 02/22/24 10:02 Height 5 ft 5 in Weight 267 lb BMI 44.4 BP 128/74 Blood Pressure Location Lt brachial Position Sitting Respiration 14 Pulse 72 Pulse Source Pulse Oximeter Pulse Oximetry (%) 98 Oxygen Delivery Method Room Air Intake Visit Reasons: 6 months CPE Intake Note: annual physical 3D Specialist Required: No Allergies dust mite Allergy (Severe, Uncoded 02/22/24 10:12) stuffy nose, cough Medication List - Last Reconciled 02/22/24 by Lois Nance, [facility]- albuterol sulfate 90 mcg/actuation 2 puffs inhalation Q6H PRN amoxicillin 250 mg PO Q8H bupropion HCl SR 100 mg PO QAM ipratropium bromide 2 sprays intranasal BID-TID PRN spironolactone 25 mg PO DAILY tirzepatide (weight loss) (Zepbound) 2.5 mg (0.5 mL) subcut QWEEK Tobacco use date assessed: 08/25/23 Dental Screening Dental Screen Date: 08/25/23 HPI HPI Comments History of Present Illness Details 23-year-old female with major depressive disorder, morbid obesity, mild intermittent asthma, GERD, hypertension, seasonal allergies, atopic dermatitis, scoliosis, KEKE, Iron Def anemia, hepatic steatosis (07/28/22 Abd CTA), PCOS Social: born in [facility] Surgical hx: removal of wisdom teeth on R 01/2024 Specialists ENT consult 01/2024 nonallergic rhinitis, use Ipratropium Endo consult 01/2024 Start Zepbound, ok w/ estrogen OCP Nutrition Dermatology Pulmonology * Cardiology [employer] [facility] *no longer ff'd Health Maintenance: [facility] pap 2022 Tdap 08/25/23 Declined flu vaccine 2023 Imaging: Holter monitor 06/30/2022 showed 80% and tachycardia greater than 100, stress test done recommended stress echo. Unsure if this was done. Sleep study for 06/2022 negative for ALIX, 07/2022 CTA of ABD r/o renal artery stenosis PFT 06/2021 Here today for CPE. Having cold sx, getting better Has not started Zepbound, waiting on paperwork Would like allergy testing Using PRN ipratropium with + relief Did not get appt w/ [facility] for concerns about ADHD. Has some ringing in bilat ears, worse at HS. Eye exam 2022 wears glasses/contacts Results reviewed 08/2023 microalb 42, LDL 172 otherwise no rmal labs - encouraged hydration & statin Repeat labs 01/18/2024 show a normal CBC, hemoglobin A1c 5.4%, normal iron profile Labs 02/08/2024 show normal TSH and T4, normal prolactin and total testosterone, elevated free testosterone, normal DHEA, normal hydroxyprogesterone Plan: Supportive care for URI Refer to Allergy and immunology for allergy testing Message sent to the [facility] program to work on scheduling an appointment Repeat lipids and microalbumin, get these done when well hydrated Continue all medications as directed Return to the office in 1 year for complete physical exam, sooner as needed [facility] Medical History Uncontrolled hypertension Abnormal stress test Acid reflux Sinusitis ALIX (obstructive sleep apnea) Chronic rhinitis Atopic dermatitis Asthma Surgical History No pertinent past surgical history Family History Mother Hypertension Pre-diabetes Arthritis Father Hypertension Maternal Grandmother Stroke Maternal Grandfather Diabetes Alcoholism Social History Housing: House Alcohol intake: current Alcohol intake frequency: a few times a month Alcohol type: wine Patient Tobacco Use Status: Never used Tobacco e-Cigarette/Vaping Use: Never Used Second Hand Smoke Exposure: No service: No Current occupational status: unemployed Cognitive needs: No Hearing needs: No Vision needs: Yes Questionnaire PHQ-9 Over the last 2 weeks, how often have you been bothered by any of the following problems? 17485 - PHQ-9 Billing: Patient declined-do not bill Source: Developed by Drs. Lavelle Alvarez, Stacey Johns, Dwight Davis and colleagues, with an educational karen from [employer]. Thrive Questionnaire Date Thrive assessed: 02/22/24 I am a: Patient What is your living situation today?: I have a steady place to live Within the past 12 months, did the food you bought not last and you didn't have the money to get more?: Never true Within the past 12 months, did you worry whether your food would run out before you got money to buy more?: Never true Do you have trouble paying for medicines?: No Do you have trouble getting transportation to medical appointments?: No Do you have trouble paying your heating and electricity bill?: No Do you have trouble taking care of your child, family member or friend?: No Do you have trouble with day-to-day activities such as bathing, preparing meals, shopping, managing finances, etc.?: I choose not to answer this question Are you currently unemployed and looking for a job?: No Are you interested in more education?: Yes Please select the resources that you would like help with: None Currently or been in a relationship where the following occur: No concerns reported THRIVE Score: 0 KEKE-7 AMB Questionnaire KEKE-7 Date KEKE - 7 assessed: 02/22/24 Source: Developed by Drs. Lavelle Alvarez, Stacey Johns, Dwight Davis and colleagues, with an educational karen from [employer]. ACT Questionnaire In the past 4 weeks, how much of the time did your asthma keep you from getting as much done at work, school or at home?: None of the time During the past 4 weeks, how often have you had shortness of breath?: Not at all During the past 4 weeks, how often did your asthma symptoms wake you up at night or earlier than usual in the morning?: Not at all During the past 4 weeks, how often have you had to use your rescue inhaler or nebulizer medication?: Not at all How would you rate your asthma control during the past 4 weeks?: Completely controlled ACT Interpretation: Negative Score: 25 Review of Systems Const Details: Constitutional: Denies fever. Skin: Denies rash. Eye: Denies eye pain. ENMT: Denies sore throat and nasal congestion. Respiratory: Denies shortness of breath and cough. Gastrointestinal: Denies nausea, vomiting or abdominal pain. Cardiovascular: Denies chest pain and syncope. Genitourinary: Denies dysuria. Musculoskeletal: Denies back pain and extremity pain. Neurologic: Denies headaches, confusion, and weakness. Psychiatric: Denies suicidal thoughts and substance abuse. Allergy/ Immunologic: Denies impaired immunity. Physical exam (Primary Care) Vital Signs: Last Vital Signs Pulse 72 02/22/24 10:02 Resp 14 02/22/24 10:02 BP 128/74 02/22/24 10:02 Pulse Ox 98 02/22/24 10:02 Oxygen Delivery Method Room Air 02/22/24 10:02 BMI result Body Mass Index 44.4 BMI Assessment/Plan discussion: High BMI High, discussed plan: lifestyle Tobacco/Smoking Status: Tobacco use Status Tobacco use date assessed 08/25/23 02/22/24 09:59 Patient Tobacco Use Status Never used Tobacco 02/22/24 09:59 e-Cigarette/Vaping Use Never Used 02/22/24 09:59 Thrive Assessment: Date of Thrive Assessment Date Thrive assessed 02/22/24 02/22/24 09:59 Currently or been in a relationship where the following occur: No concerns reported Const Other: General: Well developed, well nourished, in no acute distress. Appears stated age. Head: Normocephalic, atraumatic. Eyes: Pupils are equal, round and reactive to light and accommodation. Conjunctivae are clear. Vision grossly normal. Ears: TMs clear AU, EACS WNL Nose: Patent, without discharge. Mouth: There are no ulcers or lesions noted. No inflammation, no post nasal drip, no plaques nor exudates. Neck: Supple, no adenopathy or thyromegaly. Lungs: Clear to auscultation bilaterally. No rales, rhonchi or wheeze noted. Good air flow in all powers. Heart: Regular rate and rhythm. No murmurs, click, rubs or gallops are noted. Abdomen: Bowel sounds present in all quadrants. The abdomen is soft, nontender, with no masses or organomegaly noted. No hernias are noted. Musculoskeletal: Joints are nontender, without swelling, redness, or effusions. Range of motion is observed to be normal. Pulses: Peripheral pulses are equal and palpable bilaterally. Extremities: No clubbing, cyanosis nor edema is noted. Neurologic: Gait and station normal. Cranial Nerves 2-12 intact. Motor strength grossly symmetrical and intact. No sensory loss. Balance normal. Skin: No rashes, ulcers, or lesions noted. Turgor is good. Skin color is good. Hair and nails are without abnormalities. Psych: Normal eye contact, affect and mood appropriate, and normal interactions. Patient is alert and appropriate to context. Coding Level of Care Code Est Pt Prev Care 18-39y(80558) Diagnoses Physical exam Z00.00 Environmental allergies Z91.09 Hyperlipemia E78.5 Viral URI J06.9 Additional Codes Asthma Control Questionnaire - ACT Interpretation: Negative ([id number]) Assessment & Plan Assessment & Plan (1) Physical exam: Code(s): Z00.00 - Encounter for general adult medical examination without abnormal findings Category: Medical (2) Environmental allergies: Code(s): Z91.09 - Other allergy status, other than to drugs and biological substances Category: Medical (3) Hyperlipemia: Code(s): E78.5 - Hyperlipidemia, unspecified Category: Medical (4) Viral URI: Code(s): J06.9 - Acute upper respiratory infection, unspecified Plan . Orders: Orders Microalbumin, Random (w Creat) Today E78.5 - Hyperlipidemia, unspecified Lipid Panel Today E78.5 - Hyperlipidemia, unspecified Referrals Allergy & Immunology Referral Z91.09 - Other allergy status, other than to drugs and biological substances Patient Instructions: Health screenings for women You should visit your health care provider from time to time, even if you are healthy. The purpose of these visits is to: Screen for medical issues Assess your risk for future medical problems Encourage a healthy lifestyle Update vaccinations and other preventive care services Help you get to know your provider in case of an illness Information Even if you feel fine, you should still see your provider for regular checkups. These visits can help you avoid problems in the future. For example, the only way to find out if you have high blood pressure is to have it checked regularly. High blood sugar and high cholesterol levels also may not have any symptoms in the early stages. A simple blood test can check for these conditions. There are specific times when you should see your provider or receive specific health screenings. The [place] Preventive Services Task Force publishes a list of recommended screenings. Below are screening guidelines for women ages 18 to 39. BLOOD PRESSURE SCREENING Your blood pressure should be checked at least once every 3 to 5 years if: Your blood pressure is in the normal range (top number less than 120 mm Hg and bottom number less than 80 mm Hg) You don't have risk factors for high blood pressure Ask your provider if you need your blood pressure checked more often if: The top number is 120 to 129 mm Hg or the bottom number is 70 to 79 mm Hg You have diabetes, heart disease, kidney problems, are overweight, or have certain other health conditions You have a first-degree relative with high blood pressure You are Black You had high blood pressure during a If the top number is 130 mm Hg or greater or the bottom number is 80 mm Hg or greater, this is considered stage 1 hypertension. Schedule an appointment with your provider to learn how you can reduce your blood pressure. Watch for blood pressure screenings in your area. Ask your provider if you can stop in to have your blood pressure checked. BREAST CANCER SCREENING Experts do not agree about the benefits of breast self-exams in finding breast cancer or saving lives. Talk to your provider about what is best for you. A screening mammogram is not recommended for most women under age 40. Your provider may discuss and recommend mammograms, MRI scans, or ultrasounds if you have an increased risk for breast cancer, such as: A mother or sister who had breast cancer at a young age (most often starting screening earlier than the age the close relative was diagnosed) You carry a high-risk genetic marker CERVICAL CANCER SCREENING Cervical cancer screening should start at age 21 years unless your provider advises otherwise. After the first test: Women ages 21 through 29 should have a Pap test every 3 years. Exoprts do not agree on whether HPV testing is recommended for this age group. Women ages 30 through 65 should be screened with either a Pap test every 3 years or the HPV test every 5 years or both tests every 5 years (called cotesting ). Women who have been treated for precancer (cervical dysplasia) should continue to have Pap tests for 20 years after treatment or until age 65, whichever is longer. If you have had your uterus and cervix removed (total hysterectomy), and you have not been diagnosed with cervical cancer or precancer (high grade cervical neoplasia), you do not need cervical cancer screening. CHOLESTEROL SCREENING Cholesterol screening should begin at: Age 45 for women with no known risk factors for coronary heart disease Age 20 for women with known risk factors for coronary heart disease Repeat cholesterol screening should take place: Every 5 years for women with normal cholesterol levels More often if changes occur in lifestyle (including weight gain and diet) More often if you have diabetes, heart disease, kidney problems, or certain other conditions DIABETES SCREENING You should be screened for diabetes starting at age 35 and then repeated every 3 years if you have no risk factors for diabetes. Screening may need to start earlier and be repeated more often if you have other risk factors for diabetes, such as: You have a first degree relative with diabetes. You are overweight or have obesity. You have high blood pressure, prediabetes, or a history of heart disease. Screening for diabetes should be done if you are planning to become and you are overweight and have other risk factors such as high blood pressure. DENTAL EXAM Go to the dentist once or twice every year for an exam and cleaning. Your dentist will evaluate if you need more frequent visits. EYE EXAM Have an eye exam every 5 to 10 years before age 40. If you have vision problems, have an eye exam every 2 years or more often if recommended by your provider. You should have an eye exam that includes an examination of your retina (back of your eye) at least every year if you have diabetes. IMMUNIZATIONS Commonly needed vaccines include: Flu shot: get one every year. COVID-19 vaccine: ask your provider what is best for you. Tetanus-diphtheria and acellular pertussis (Tdap) vaccine: have one at or after age 19 as one of your tetanus-diphtheria vaccines if you did not receive it as an adolescent. Tetanus-diphtheria: have a booster (or Tdap) every 10 years. Varicella vaccine: receive 2 doses if you never had chickenpox or the varicella vaccine. Hepatitis B vaccine: receive 2, 3, or 4 doses, depending on your exact circumstances. Measles, mumps, and rubella (MMR) vaccine: receive 1 to 2 doses if you are not already immune to MMR. Your provider can tell you if you are immune. Ask your provider about the human papillomavirus (HPV) vaccine if: You have not received the HPV vaccine in the past You have not completed the full vaccine series (you should catch up on this shot) Ask your provider if you should receive other immunizations if you have certain health problems that increase your risk for some diseases such as pneumonia. INFECTIOUS DISEASE SCREENING Women who are sexually active should be screened for chlamydia and gonorrhea up until age 25. Women 25 years and older should be screened for chlamydia and gonorrhea if at high risk. Screening for hepatitis C: All adults ages 18 to 79 should get a one-time test for hepatitis C. people should be screened at every . Screening for human immunodeficiency virus (HIV): All people ages 15 to 65 should get a one-time test for HIV. Depending on your lifestyle and medical history, you may also need to be screened for infections such as syphilis and HIV, as well as other infections. PHYSICAL EXAM All adults should visit their provider from time to time, even if they are healthy. The purpose of these visits is to: Screen for disease Assess your risk of future medical problems Encourage a healthy lifestyle Update your vaccinations and other preventive care services Maintain a relationship with a provider in case of an illness Your height, weight, and BMI should be checked at every exam. During your exam, your provider may ask you about: Depression and anxiety Diet and exercise Alcohol and tobacco use Safety issues, such as using seat belts, smoke detectors, and intimate partner violence Your medicines and risk for interactions SKIN SELF-EXAM Your provider may check your skin for signs of skin cancer, especially if you're at high risk, such as if you: Have had skin cancer before Have close relatives with skin cancer Have a weakened immune system OTHER SCREENING Talk with your provider about colon cancer screening if you have a strong family history of colon cancer or polyps, or if you have had inflammatory bowel disease or polyps yourself. Routine bone density screening of women under 40 is not recommended.
[2024-02-22 10:02] VITALS: BP 128/74; PULSE 72; RESP 14; O2SAT 98; BMI 44.4
== END 2024-02-22 10:29 | disposition home or self-care (01) ==
PROVIDERS: PCP Nurse Practitioner Family; Visit Provider Nurse Practitioner Family
DX: Z00.00 Encounter for general adult medical examination without abnormal findings (principal); Z91.09 Other allergy status, other than to drugs and biological substances; E78.5 Hyperlipidemia, unspecified; J06.9 Acute upper respiratory infection, unspecified

== ENCOUNTER → 2024-02-22 09:54 | Outpatient (BNVA) | payer OTHER, SELFPAY | PROVIDERS: PCP Nurse Practitioner Family; Visit Provider Nurse Practitioner Family | DX: Z00.01 Encounter for general adult medical examination with abnormal findings (principal); J06.9 Acute upper respiratory infection, unspecified; E78.5 Hyperlipidemia, unspecified; J45.20 Mild intermittent asthma, uncomplicated; Z91.09 Other allergy status, other than to drugs and biological substances | CPT/HCPCS: 96160 ==

== ENCOUNTER 2024-03-30 10:05 | Outpatient (REF) | payer OTHER, SELFPAY ==
--- OUTSIDE RECORDS SUMMARY | 2024-03-30 11:17 | XMS_ITS | Continuity of Care Document ---
Author Organization [facility] 2 [facility] [address] [place] [address] Phone [phone] Care Team Providers Care Pl Sql Developer Name Role Phone Beverly Cadena Care Team Information Gear Shaver Set Up Operator [phone] Problems Active Problems Provider Date Polycystic ovary syndrome EVERARDO Swartz Ons et: 09/02/2023 Essential hypertension EVERARDO Swartz Onset: 09/02/2023 Obstructive sleep apnea syndrome EVERARDO Swartz Onset: 09/02/2023 Social History Type Date Description Comments Sex Unknown Tobacco Use Start: Unknown Never Smoked Cigarettes ETOH Use Occasionally consumes alcoho l Allergies and adverse reactions Description No Known Drug Allergies Medications Active Medications SIG Qnty Indications Ordering Provider Date Wegovy0.25mg/0.5ML Solution Auto-Inject Inject 0.25 mg weekly for 4 weeks dx:E66.9 2ml E66.9 Meseret Montero M.D. 09/30/2023 Z68.41 Wtyfqsboccqizi62ah Tablets Take 1 tablet by mouth once a day 90tabs Meseret Montero M.D. 09/02/2023 Eqjakuwjqaoyy4yt Tablets 1 tablet by poly th at 11 pm 1tafrank Montero M.D. 09/02/2023 Albuterol Sulfate IWU454(90Base) mcg/Act Aerosol 2 puff Inhaled Every 4 To 6 Hours as Needed For Shortness Of Breath Or Wheezing Unknown Vital Signs Date Vital Result Comment 09/02/2023 9:41am BP Systolic 118 mmHg BP Diastolic 88 mmHg Heart Rate 84 /min Height 65 inches 5'5 Weight 265.25 lb BMI (Body Mass Index) 44.1 kg/m2 Results Test Acquired Date Facility Test Result H/L Range N ote Lipid Panel 09/09/2023 [facility] Cholesterol, Total 237 mg/dL High 100-199 1 Triglycerides 120 mg/dL 0-149 HDL Cholesterol 54 mg/dL >39 VLDL Cholestero l Vargas 21 mg/dL 5-40 LDL Chol Calc (Nih) 162 mg/dL High 0-99 LDL Calc Comment: TNP Hemoglobin A1c 09/09/2023 [facility] Hemoglobin A1c 5.6 % 4.8-5.6 2 Laboratory test finding 09/09/2023 [facility] Glucose 102 mg/dL High 70-99 Testosterone Free & Total With SHBG 09/09/2023 [facility] Testosterone, Serum (Total) 29 ng/dL 3 Sex Hormone Binding Globulin 20.0 nmol/L Low 4 % Free Testosterone 2.6 % 5 Free Testosterone, S 7.5 pg/mL High 6 Laboratory test finding 09/09/2023 [facility] Dhea-Sulfate 168.0 g /dL 110.0-431 .7 FSH And LH 09/09/2023 [facility] LH 7.6 mIU/mL 7 FSH 5.6 mIU/mL 8 Laboratory test finding 09/09/2023 [facility] Cortisol 0.4 g /dL Low 6.2-19.4 9 17-Oh Progesterone LCMS 21 ng/dL 10 Dexamethasone, Serum 404 ng/dL 11 1 Test(s) 360306-35-QT Progesterone LCMS was developed and its performance characteristics determined by [facility]. It has not been cleared or approved by the Food and Drug Administration. 2 Prediabetes: 5.7 - 6 .4 Diabetes: >6.4 Glycemic control for adults with diabetes: <7.0 3 This test was develo ped and its performance characteristics determined by [facility]. It has not been cleared or approved by the Food and Drug Administration. Reference Range: Adult Females Premenopausal 10 - 55 Postmenopausal 7 - 40 4 Reference Range: Pubertal: 36.0 - 125.0 20 - 49y: 24.6 - 122.0 >49y: 17.3 - 125.0 5 This test was develo ped and its performance characteristics determined by [facility]. It has not been cleared or approved by the Food and Drug Administration. Reference Range: Adult Females: 0.8 - 1.4 6 Reference Range: Adult Females: 1.1 - 6.3 7 Adult Female Range Follicular phase 2.4 - 12.6 Ovulation phase 14.0 - 95.6 Luteal phase 1.0 - 11.4 Postmenopausal 7.7 - 58.5 8 Adult Female Range Follicular phase 3.5 - 12.5 Ovulation phase 4.7 - 21.5 Luteal phase 1.7 - 7.7 Postmenopausal 25.8 - 134.8 9 Please Note: The ref erence interval and flagging for this test is for an AM collection. If this is a PM collection please use: Cortisol PM: 2.3-11.9 10 Adult Female Follicular 15 - 70 Luteal 35 - 290 11 This test was [employer] ped and its performance characteristics determined by [employer]. It has not been cleared or approved by the Food and Drug Administration. Reference Range: Adults baseline: <30 8:00 AM following 1 mg dexamethasone previous evenin - 295 8:00 AM following 8 mg dexamethasone (4 x 2 mg doses) previous day: 1600 - 2850 Medical Devices Description No Information Available Encounters Type Date Location Provider Dx Diagnosis Office Visit 09/02/2023 9:30a Main Office EVERARDO Swartz E28.2 Polycystic ov dillon syndrome E66.9 Obesity, unspecified Z68.41 Body mass index [BMI ] 40.0-44.9, adult Assessments Date Code Description Provider 09/02/2023 E28.2 Polycystic ovarian syndrome EVERARDO Swartz 09/02/2023 E66.9 Obesity, unspecified EVERARDO Swartz 09/02/2023 Z68.41 Body mass index [BMI] 40.0-4 4.9, adult EVERARDO Swartz Plan of Treatment 09/02/2023 - EVERARDO Swartz* E28.2 Polycystic ovarian syndrome * E66.9 Obesity, unspecified * Z68.41 Body mass index [BMI] 40.0-44.9, adult * Functional Status Description No Information Available Mental Status Description No Information Available Referrals Description No Information Available
[2024-03-31 03:39] LABS: CT PCR NOT DETECTED (Not Detect.); NG PCR NOT DETECTED (Not Detect.)
[2024-03-31 11:54] LABS: Bacterial Vaginosis PCR NEGATIVE (Negative); Candida Group PCR NOT DETECTED (Not Detect); Candida glab krusei PCR NOT DETECTED (Not Detect); Trichomonas vaginalis PCR NOT DETECTED (Not Detect)
== END 2024-03-30 10:06 | disposition home or self-care (01) ==
LOC: HO.LAB 10:05
PROVIDERS: PCP Nurse Practitioner Family; Visit Provider Advanced Practice Midwife
DX: N89.8 Other specified noninflammatory disorders of vagina (principal); Z20.2 Contact with and (suspected) exposure to infections with a predominantly sexual mode of transmission
CPT/HCPCS: 81515; 87491; 87591

== ENCOUNTER 2024-03-30 10:05 | Outpatient (AMB) | payer OTHER, SELFPAY ==
[2024-03-30 10:10] VITALS: BP 118/70; BMI 44.6
--- NOTE | 2024-03-30 10:10 | A.OFFVIS_ITS ---
Vital Signs 03/30/24 10:10 Height 5 ft 5 in Weight 268 lb BMI 44.6 BP 118/70 Intake Visit Reasons: New patient Annual Instructional Services Librarian Required: No Instructional Services Librarian Services: Instructional Services Librarian Present Information Interpreted: clinical only Child And Youth Program Assistant: Child And Youth Program Assistant Present Allergies dust mite Allergy (Severe, Uncoded 03/30/24 10:12) stuffy nose, cough Medication List - Last Reconciled 03/30/24 by Laurie Duron CNM albuterol sulfate 90 mcg/actuation 2 puffs inhalation Q6H PRN bupropion HCl SR 100 mg PO QAM ipratropium bromide 2 sprays intranasal BID-TID PRN spironolactone 25 mg PO DAILY tirzepatide (weight loss) (Zepbound) 2.5 mg (0.5 mL) subcut QWEEK Is last menstrual period known: Yes Last menstrual period: 03/11/24 HPI HPI New patient Annual: Details: Patient is here for new veterans adviser visit she was seen previously [facility] in [place] about 3 years ago. She was diagnosed in the past with PCOS she has a history high blood pressure as well though it has been better lately she is not currently on any medication for it she has been seen by endocrinology in regards to PCOS and also for overall metabolic concerns. She reports that she is not diabetic but she checks her blood sugars at home because her mother is and usually her fastings are 90-100 only once was it as high as 115. She has seen a soils technician and that was in regards to hyperlipidemia. She is trying to avoid carbs and sugars and focus more on protein and vegetables. 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 She lives with her parents she has always struggled with her weight and she has had irregular bleeding patterns since she was about 13 she was on control pills in the past and did not like how they made her feel and also other side effects she remembers being different kinds of pills including progestin and she is not really interested in that. She likes going for walks so hikes and she tries to go on treadmill for a minimum of 20 min/day if not longer. She is not sexually active and never has been. On average she may bleed for a long period of time every other month and then skip a month. Her last menstrual period started on March 11 and just ended a couple of days ago and she has started bleeding again today Previous to that she was bleeding for least 2 weeks through Thanksgiving. [facility] Medical History Uncontrolled hypertension Abnormal stress test Acid reflux Sinusitis ALIX (obstructive sleep apnea) Chronic rhinitis Atopic dermatitis Asthma Surgical History No pertinent past surgical history Family History Mother Hypertension Pre-diabetes Arthritis Father Hypertension Maternal Grandmother Stroke Maternal Grandfather Diabetes Alcoholism Social History Housing: House Alcohol intake: current Alcohol intake frequency: a few times a month Alcohol type: wine Patient Tobacco Use Status: Never used Tobacco e-Cigarette/Vaping Use: Never Used Second Hand Smoke Exposure: No service: No Current occupational status: unemployed Cognitive needs: No Hearing needs: No Vision needs: Yes Female Reproductive History Menstrual Age of Menarche: 9 Duration of menses: other Date of last menstrual period: 03/11/24 control method: none Total pregnancies: 0 History of abnormal pap smear: No (2020,neg (per patient)) Physical Exam Vital Signs: Last Vital Signs BP 118/70 03/30/24 10:10 BMI result Body Mass Index 44.6 Const Other: Some hirsutisUm noted. General: healthy appearing, comfortable, no acute distress, well developed and alert Nutritional Appearance: average body habitus and obese Orientation/consciousness: patient oriented x3 Limitations: no limitations HEENT Head: Yes normocephalic Neck Neck: Yes normal visual inspection Chest Chest palpation & inspection: normal inspection of the chest Breast/axilla inspection: normal inspection of the breasts and normal inspection of the axillae Breast/axilla palpation: normal palpation of the breasts and normal palpation of the axillae Resp Effort & Inspection: normal respiratory effort GI Inspection: Yes normal to inspection, No Abdominal wall edema and No distended Palpation (GI): Soft to palpation and nontender Other: External exam within normal limits vagina pink moist with moderate menses cervix nulliparous smooth healthy appearing cervix mobile nontender uterus midposition nontender adnexa nontender good tone with Kegel. General: Yes bladder normal to palpation External Female Exam: normal external appearance and normal appearance of the urethra Speculum Exam - Vagina: normal appearance of the vagina, normal palpation and normal vaginal discharge Speculum Exam - Cervix: normal appearance of the cervix, normal palpation and nontender Bimanual exam- vagina & uterus: normal bimanual exam, normal palpation, uterine size normal, bladder normal to palpation, consistency normal, normal palpation, uterine mobility normal, uterine shape normal, No Cervical tenderness present, non-tender and no cervical motion tenderness Bimanual Exam- Adnexa, other: normal adnexae, no masses, normal and No adnexal tenderness Neuro General: patient oriented x3 Assessment & Plan Assessment & Plan (1) PCOS (polycystic ovarian syndrome): Code(s): E28.2 - Polycystic ovarian syndrome Category: Medical (2) Menorrhagia with irregular cycle: Code(s): N92.1 - Excessive and frequent menstruation with irregular cycle Category: Medical (3) Obesity, morbid, BMI 40.0-49.9: Code(s): E66.01 - Morbid (severe) obesity due to excess calories Category: Medical Plan -----Discussed in this visit the following: healthy balanced diet, regular and consistent exercise, getting recommended health screens, doing the best she can for her particular health concerns, kegel exercises, pap smear screening and followup recommendations, mammography screening and SBE, normal changes in cycles in her life stage--- Complex visit today discussing all of the issues involved with her long history of abnormal bleeding, patterns dysfunctional bleeding, PCOS, her previous evaluations and workups, previous treatments in the various control pills she was on, and Provera, and issues involved with her evaluations and discussions with primary care and endocrinology , her current attempts to get the zep bound covered through a discount with the company, and all of the other issues, including the following detail... All of the control methods we reviewed in light her dysfunctional bleeding pattern what would be will to her and what would not I also reviewed that I would not with combination control pills her because of her high blood pressure in the past though it was fine today. .-I reviewed with the patient, all of the currently common used methods of control that are available. We reviewed how they work in the body, how they are taken, common side effects, uncommon side effects, precautions, and contraindications. -Discussed also factors that influence their effectiveness and use, and womens satisfaction with the method. -Discussed how each are used, and drawbacks of each method as well. -Methods covered included: condoms, control pills, control patches, control rings, Depo-Provera, Nexplanon, Mirena and Kyleena IUDs, and ParaGard IUDs. All of the above methods were covered in great detail including their side effect profiles and common experiences that women have and ways to mitigate against the negative experiences including attention to diet and exercise patient's with bleeding challenges that may occur her and efforts to time the initiation of the method to this start of the menstrual period. Reviewed how the Mirena works and its affect on menstrual cycles and menses and the other common changes that women sometimes notice on mood weight another subtle cyclic changes. Reviewed that 1 of the reasons we insert the Mirena at the beginning of the menses is because of the typical physiologic changes that happen with menses that allow for the cervix to be slightly softened and open a very tiny bit which allow for more easy insertion of the Mirena. Additionally when it is inserted at the beginning of the menstrual cycle the endometrial lining has not built up very much yet as it is just shedding its lining, and therefore future periods will be expected to be practice office associate and there will be less of a problematic side effect of irregular bleeding which might occur her if we inserted it at a random time. Discussed problems to watch for including any severe pain, fever, feeling of expulsion. Also discussed what to do if those occur.(call here or seek urgent care) ---Discussed PCOS in general and specifically about the interplay of the abnormal hormonal milieu related to being overweight, with the elevations of many hormone levels, including testosterone and estrogen, as well as others that contribute to cycles that are anovulatory and therefore prolonged, and when periods do come they come very heavy, and can contribute to lots of cramping, with passage of clots and anemia. Discussed the common symptoms related to the elvated hormonal levels, including increased facial hair, male pattern hair thinning, acne, and increased central abdominal girth. Discussed the interplay with difficulty getting when desired, but still possible, and therefore the need to contracept as appropriate and when needed. Discussed the role of weight loss as the primary, most important, and most likely to succeed, intervention, in achieving healthier status as regards PCOS, and ovulatory regular cycles. Additionally the very important relationship to elevated insulin levels, and blood sugars, and high risk of pre diabetes, progressing to diabetes as well as other metabolic syndromes related to this was discussed. Also discussed common interventions for some of the above, including if appropriate, use of oral contraceptives, and progestin iuds, and provera. ---Discussed with pt, her wt, and BMI, and her goals. Discussed ideal dietary guidelines to assist in weight loss, focusing on vegetables and fruits and lean proteins, and minimizing fats and carbohydrates and eliminating empty calories. Discussed exercise, including regular, sufficient, and consistent cardio based exercise, and weight bearing exercise. Discussed barriers to exercise and healthy eating, and possible ways of establishing newer healthier habits. Discussed supports to help in her efforts, and timing issues. Discussed adequate sleep, and ways to achieve this. Discussed adequate water intake.-- She is going to be following up with her primary care provider and also endocrinology she does not think she will be seeing soils technician in longer because she thinks she understands what things she needs to do she has been working on this for a long time it is very challenging she is going to continue her efforts with her walking both at home and outside weather is better. We wished her good luck with the zepbound. Discussed that this is a very good time her life to try to work on weight loss. Specifically for next steps I am ordering a pelvic ultrasound that hopefully be done within month and her visit after that will involve reviewing the ultrasound and doing an endometrial biopsy and I reviewed why we want to do that before considering therapy. She was not interested in progestin only pills in any case so that was not an option to consider today from her point of view. Discussed the benefits of the Mirena specifically to help deal with her dysfunctional bleeding pattern while she works on weight loss to do with the other metabolic issues. She is not sexually active not anticipating being active, so control in and of itself is not what she needs. Orders: Orders CT NG by PCR Today N89.8 - Other specified noninflammatory disorders of vagina, Z20.2 - Contact with and (suspected) exposure to infections with a predominantly sexual mode of transmission Bacterial Vaginosis Panel Today N89.8 - Other specified noninflammatory disorders of vagina Pap Smear Today Z01.419 - Encounter for gynecological examination (general) (routine) without abnormal findings US pelvic and transvaginal Today E28.2 - Polycystic ovarian syndrome, E66.01 - Morbid (severe) obesity due to excess calories, N92.1 - Excessive and frequent menstruation with irregular cycle Coding Level of Care Code New Pt Prev Care 18-39yr([id number] Diagnoses PCOS (polycystic ovarian syndrome) E28.2 Menorrhagia with irregular cycle N92.1 Obesity, morbid, BMI 40.0-49.9 E66.01
--- OUTSIDE RECORDS SUMMARY | 2024-03-30 10:20 | XMS_ITS | Data Portability ---
Author Organization [place] - [facility], Allergy Address [address] [address] Care Team Providers Care Heading Maker Name Role Phone JAVIER DOYLE Primary Care Provider Assessment Encounter Date Assessment Date Assessment LastModified by Organization Details LastModified Time 01/27/2024 01/27/2024 23-year-old female seen for an opinion regarding nasal congestion refractory to fluticasone nasal spray. She notes snoring but had a negative sleep study by report. Had sinus x-rays and seen for an opinion regarding possible septal deviation. She notes mild dust mite allergy Examination shows a relatively straight septum with a posterior deviation to the right no evidence of any nasal polyps or adenoid hypertrophy. Suspect nonallergic rhinitis. Suggest trial of ipratropium bromide nasal spray. Sinus imaging was normal. If she has persistent symptoms we can consider a CT of the sinuses [email or web address] Not available 01/27/2024 14:40:49 Plan of Treatment Reminders Order Date Submit Date Provider Last Modified By Organization Details Last Modified Time Details Appointments None recorded. Lab None recorded. Referral None recorded. Procedures None recorded. Surgeries None recorded. Imaging None recorded. Medication Orders ipratropium bromide 21 mcg (0.03 %) nasal spray 2023 [facility]/Pharmacy #[id number], [address] [facility], [place], [address], 14:40:39 Patient TargetsNo targets recorded. Patient InstructionsNo instructions recorded. Reason for Referral None Reported. Problems Name Problem SNOMED Code Status Onset Date Resolution Date Notes Provider Name and Address Organization Details Recorded Time Vasomotor rhinitis 7556471 Active SHIRA VAZQUEZ MD [address], [facility] [place], [address] , [facility] - [facility] 4 14:36:03 Snoring 26484202 Active 024 SIHRA VAZQUEZ MD [address], [facility] [place], [address] , [facility] - [facility] 4 14:36:11 Problem Notes None recorded. Procedures Surgical History Date Name Laterality Status Provider Name and Address Organization Details Recorded Time 4 JMSNasal/Sinus Endoscopy completed SHIRA JO MD [address] [facility] [place], [place], [address], [facility] 01/27/2024 14:37:32 Imaging Results None recorded. Procedure Notes None recorded. Medical Equipment None Reported. Medications Name Sig Start Date Stop Date Status Note LastModified by Organization Details LastModified Time triamcinolo ne acetonide 0.1 % topical cream PLEASE SEE ATTACHED FOR DETAILED DIRECTION S active Not Available Not Available No t Available spironolact one 25 mg tablet TAKE 1 TABLET BY MOUTH EVERY DAY active Not Available Not Available No t Available bupropion HCl SR 100 mg tablet,12 hr sustained-r elease TAKE 1 TABLET BY MOUTH TWICE A DAY active Not Available Not Available No t Available dexamethaso ne 1 mg tablet TAKE 1 TABLET BY MOUTH AT 11 PM 01/26 completed Not Available Not Available Not Available benzonatate 100 mg capsule TAKE 1 CAPSULE ORALLY 3 TIMES A DAY NEEDED FOR COUGH FOR 10 DAYS 01/26 completed Not Available Not Available Not Available albuterol sulfate HFA 90 mcg/actuati on aerosol inhaler INHALE 2 PUFFS EVERY 6 HOURS NEEDED FOR SHORTNESS OF BREATH OR WHEEZING active Not Available Not Available No t Available fluticasone propionate 50 mcg/actuati on nasal spray,suspe nsion INSTILL 2 SPRAYS IN NOSTRIL(S ) DAILY FOR 30 DAYS active Not Available Not Available No t Available ipratropium bromide 21 mcg (0.03 %) nasal spray SPRAY 2 SPRAYS BY INTRANASA L ROUTE 3 TIMES A DAY active Not Available Not Available No t Available Vitals Date Recorded Body height Body mass index (BMI) Body weight Provider Name and Address Organization Details Last Updated DateTime 01/27/2024 165.1 cm 44.9 kg/m2 133068.94 g Efren Marvin [place] - [facility] 01/27/2024 14:25:25 Social History None recorded. Functional Status None recorded. Mental Status None recorded. Family History Nothing Reported. Medical History Condition Response Anxiety Gynecological HistoryNo gynecological history recorded. Obstetrics History GPAL:G 0 P 0 0 0 0 Past Encounters Encounter ID Performer Location Encounter Start Date Encounter Closed Date Diagnosis/Indication Diagnosis SNOMED-CT Code Diagnosis ICD10 Code Diagnosis Note [id number] SHIRA VAZQUEZ MD [facility] [address] [place] [address] 01/27/2024 14:04:46 01/27/2024 14:41:43 Vasomotor rhinitis 3673583 J30.0 Snoring 63349818 R06.83 Given PSG reportedly negative. She is being evaluated for medical treatment of obesity Body mass index 40+ - severely obese 583249237 Z68.42 Health Concerns Section Related Observation LastModified by Organization Detai ls LastModified Time None Recorded Concern Status LastModified by Organization Details LastModified Time None Recorded Advance Directives Directive None Recorded Payers Encounter Date Sequence Insurance Name Policy Number Policy Damon Covered Member ID Damon Member ID Guarantor Name 01/27/2024 1 [employer] [facility] ([id number] Micaela Wagoner [id number] Micaela Wagoner Notes Date Note Type Note Provider Name and Address Organization Details Recorded Time 01/27/2024 text/html 23-year-old femshruthi le seen for an opinion regarding nasal congestion refractory to fluticasone nasal spray. She notes snoring but had a negative sleep study by report. Had sinus x-rays and seen for an opinion regarding possible septal deviation. She notes mild dust mite allergy SHIRA JO MD [address] [address], [place], [address], [place] - [facility] 01/27/2024 14:44:18 OBGyn Episode No OBEpisode recorded.
--- OUTSIDE RECORDS SUMMARY | 2024-03-30 10:20 | XMS_ITS | Continuity of Care Document ---
Author Organization [place] - [facility], [facility] Address [address] [place] [address] Care Team Providers Care Executive Director Global Brand Marketing Name Role Phone JAVIER DOYLE Primary Care [...] can consider a CT of the sinuses [email or web address] Not available 01/27/2024 14:40:49 Plan of Treatment Reminders Order Date Submit Date Provider Last Modified By Organization Details Last Modified Time Details Appointments None recorded. Lab None recorded. Referral None recorded. Procedures None recorded. Surgeries None recorded. Imaging None recorded. Medication Orders ipratropium bromide 21 mcg (0.03 %) nasal spray 2023 [facility]/Pharmacy #[id number], [address] [facility], [place], [address], 14:40:39 Patient TargetsNo targets recorded. Patient InstructionsNo instructions recorded. Reason for Referral None Reported. Problems Name Problem SNOMED Code Status Onset Date Resolution Date Notes Provider Name and Address Organization Details Recorded Time Vasomotor rhinitis 5042720 Active SHIRA [facility]QUEZ MD [address] [facility] [place] [address], [place] [address] , [facility] 4 14:36:03 Snoring 06181703 Active SHIRA VAZQUEZ MD [address] [facility] [place],[facility] [address], [facility] [place], [address] , [facility] 4 14:36:11 Problem Notes None recorded. Procedures Surgical History Date Name Laterality Status Provider Name and Address Organization Details Recorded Time 4 JMSNasal/Sinus Endoscopy completed SHIRA JO MD [address] [facility] [address], [place], [address], [facility] 01/27/2024 14:37:32 Imaging Results None recorded. [...] Updated DateTime 01/27/2024 165.1 cm 44.9 kg/m2 174271.94 g Efren Wong [place] - [facility] 01/27/2024 14:25:25 Social History None recorded. Functional Status None recorded. Mental Status None recorded. Family History Nothing Reported. Medical History Condition Response Anxiety Gynecological HistoryNo gynecological history recorded. Obstetrics History GPAL:G 0 P 0 0 0 0 Past Encounters Encounter ID Performer Location Encounter Start Date Encounter Closed Date Diagnosis/Indication Diagnosis SNOMED-CT Code Diagnosis ICD10 Code Diagnosis Note [id number] SIHRA VAZQUEZ MD [facility] [address] [address] 01/27/2024 14:04:46 01/27/2024 14:41:43 Vasomotor rhinitis 4457886 J30.0 Snoring 74452302 R06.83 Given PSG reportedly negative. She is being evaluated for medical treatment of obesity Body mass index 40+ - severely obese 250203796 Z68.42 Health Concerns Section Related Observation LastModified by Organization Detai ls LastModified Time None Recorded Concern Status LastModified by Organization Details LastModified Time None Recorded Payers Encounter Date Sequence Insurance Name Policy Number Policy Damon Covered Member ID Damon Member ID Guarantor Name 01/27/2024 1 [employer] [facility] ([id number] Micaela Wagoner [id number] Micaela Wagoner Notes Date Note Type [...] mild dust mite allergy SHIRA JO MD [address] [place] [address], [address], [place] - [facility] 01/27/2024 14:44:18 OBGyn Episode No OBEpisode recorded.
== END 2024-03-30 12:09 | disposition home or self-care (01) ==
PROVIDERS: PCP Nurse Practitioner Family; Visit Provider Advanced Practice Midwife
DX: Z01.419 Encounter for gynecological examination (general) (routine) without abnormal findings (principal); E28.2 Polycystic ovarian syndrome; N92.1 Excessive and frequent menstruation with irregular cycle; E66.01 Morbid (severe) obesity due to excess calories
CPT/HCPCS: 99385; 99459

== ENCOUNTER 2024-03-30 10:54 | Outpatient (REF) | payer OTHER, SELFPAY | END 2024-03-30 10:55 | disposition home or self-care (01) | LOC: HO.LNP 10:54 | PROVIDERS: Visit Provider Advanced Practice Midwife | DX: Z01.419 Encounter for gynecological examination (general) (routine) without abnormal findings (principal) | CPT/HCPCS: 88175 ==

== ENCOUNTER 2024-04-05 12:54 | Outpatient (REF) | payer OTHER, SELFPAY ==
[2024-04-05 18:32] LABS: Influenza A PCR POSITIVE (Negative); Influenza B PCR NEGATIVE (Negative); Resp Syncy Virus RNA Qual PCR NEGATIVE (Negative); SARS COV2 PCR INHOUSE NEGATIVE (Negative)
--- OUTSIDE RECORDS SUMMARY | 2024-04-05 18:33 | XMS_ITS | Data Portability ---
Author Organization [place] - [facility], Allergy Address [address] [address] Care Team Providers Care Teenage Babysitter Name Role Phone JAVIER DOYLE Primary Care Provider [phone] Assessment Encounter Date Assessment Date Assessment LastModified [...] 21 mcg (0.03 %) nasal spray 2023 [facility]/Pharmacy #[id number], [address] [facility], [place], [address], 14:40:39 Patient TargetsNo targets recorded. Patient InstructionsNo instructions recorded. Reason for Referral None Reported. Problems Name Problem SNOMED Code Status Onset Date Resolution Date Notes Provider Name and Address Organization Details Recorded Time Vasomotor rhinitis 7995860 Active SHIRA VAZQUEZ MD [address], [facility] [place], [address] , [facility] - [facility] 4 14:36:03 Snoring 68071066 Active 024 SHIRA VAZQUEZ MD [address], [facility] [place], [address] , [facility] - [facility] 4 14:36:11 Problem Notes None recorded. Procedures Surgical History Date Name Laterality Status Provider Name and Address Organization Details Recorded Time 4 JMSNasal/Sinus Endoscopy completed SHIRA JO MD [address] [facility] [address], [place], [address], [facility] 01/27/2024 14:37:32 Imaging Results None recorded. [...] Updated DateTime 01/27/2024 165.1 cm 44.9 kg/m2 871097.94 g Efren Marvin [place] - [facility] 01/27/2024 14:25:25 Social History None recorded. Functional Status None recorded. Mental Status None recorded. Family History Nothing Reported. Medical History Condition Response Anxiety Gynecological HistoryNo gynecological history recorded. Obstetrics History GPAL:G 0 P 0 0 0 0 Past Encounters Encounter ID Performer Location Encounter Start Date Encounter Closed Date Diagnosis/Indication Diagnosis SNOMED-CT Code Diagnosis ICD10 Code Diagnosis Note [id number] SHIRA VAZQUEZ MD [facility] [address] [place] [address] 01/27/2024 14:04:46 01/27/2024 14:41:43 Vasomotor rhinitis 8553472 J30.0 Snoring 07199990 R06.83 Given PSG reportedly negative. She is being evaluated for medical treatment of obesity Body mass index 40+ - severely obese 179359937 Z68.42 Health Concerns Section Related Observation LastModified by Organization Detai ls LastModified Time None Recorded Concern Status LastModified by Organization Details LastModified Time None Recorded Advance Directives Directive None Recorded Payers Encounter Date Sequence Insurance Name Policy Number Policy Damon Covered Member ID Damon Member ID Guarantor Name 01/27/2024 1 [employer] [facility] ([id number]) [id number] Micaela Wagoner [id number] Micaela Wagoner Notes Date Note Type [...] dust mite allergy SHIRA JO MD [address] [address], [place], [address], [place] - [facility] 01/27/2024 14:44:18 OBGyn Episode No OBEpisode recorded.
--- OUTSIDE RECORDS SUMMARY | 2024-04-05 18:33 | XMS_ITS | Continuity of Care Document ---
Author Organization [facility] [address] [facility] [address] [place] [address] Phone [phone] Care Team Providers Care Suggestion Clerk Name Role Phone Beverly Cadena Care Team Information [employer] [phone] Problems Active Problems Provider Date Polycystic ovary [...] 2ml E66.9 Meseret Montero M.D. 09/30/2023 Z68.41 Dgpjjgxlzofleh15vo Tablets Take 1 tablet by mouth once a day 90tabs Meseret Montero M.D. 09/02/2023 Cgiwwqqcqlzoe3uj Tablets 1 tablet by poly th at 11 pm 1tafrank Montero M.D. 09/02/2023 Albuterol Sulfate YNL269(90Base) mcg/Act Aerosol 2 puff Inhaled Every 4 [...] Dexamethasone, Serum 404 ng/dL 11 1 Test(s) 691045-76-BZ Progesterone LCMS was developed and its performance characteristics determined by [facility]. It has not been cleared or approved by the Food and Drug Administration. 2 Prediabetes: 5.7 - 6 .4 Diabetes: >6.4 Glycemic control for adults with diabetes: <7.0 3 This test was develo ped and its performance characteristics determined by [facility]. It has not been cleared or approved by the Food and Drug Administration. Reference Range: Adult Females Premenopausal 10 - 55 Postmenopausal 7 - 40 4 Reference Range: Pubertal: 36.0 - 125.0 20 - 49y: 24.6 - 122.0 >49y: 17.3 - 125.0 5 This test was develo ped and its performance characteristics determined by [facility]. It has not been cleared or approved [...] 35 - 290 11 This test was [employer] ped and its performance characteristics determined by [email or web address]. It has not been cleared or approved [...]
--- OUTSIDE RECORDS SUMMARY | 2024-04-05 18:33 | XMS_ITS | Continuity of Care Document ---
Author Organization [place] - [facility], [facility] Address [address] [place] [address] Care Team Providers Care Gta Name Role Phone JAVIER DOYLE Primary Care [...] can consider a CT of the sinuses [email or web address] Not available 01/27/2024 14:40:49 Plan of Treatment Reminders Order Date Submit Date Provider Last Modified By Organization Details Last Modified Time Details Appointments None recorded. Lab None recorded. Referral None recorded. Procedures None recorded. Surgeries None recorded. Imaging None recorded. Medication Orders ipratropium bromide 21 mcg (0.03 %) nasal spray 2023 [facility]/Pharmacy #[id number], [address] [facility], [place], [address], 14:40:39 Patient TargetsNo targets recorded. Patient InstructionsNo instructions recorded. Reason for Referral None Reported. Problems Name Problem SNOMED Code Status Onset Date Resolution Date Notes Provider Name and Address Organization Details Recorded Time Vasomotor rhinitis 0614573 Active SHIRA VAZQUEZ MD [address] [facility] [place] [address], [facility] [place], [address] , [facility] 4 14:36:03 Snoring 22199272 Active SHIRA VAZQUEZ MD [address] [facility] [place],[facility] [address], [facility] [place], [address] , [facility] 4 14:36:11 Problem Notes None recorded. Procedures Surgical History Date Name Laterality Status Provider Name and Address Organization Details Recorded Time 4 JMSNasal/Sinus Endoscopy completed SHIRA JO MD [address] [facility] [address], [place], [address], [facility] 01/27/2024 14:37:32 Imaging Results None recorded. Procedure [...] Updated DateTime 01/27/2024 165.1 cm 44.9 kg/m2 592121.94 g Efren Wong [place] - [facility] 01/27/2024 14:25:25 Social History None recorded. Functional Status None recorded. Mental Status None recorded. Family History Nothing Reported. Medical History Condition Response Anxiety Gynecological HistoryNo gynecological history recorded. Obstetrics History GPAL:G 0 P 0 0 0 0 Past Encounters Encounter ID Performer Location Encounter Start Date Encounter Closed Date Diagnosis/Indication Diagnosis SNOMED-CT Code Diagnosis ICD10 Code Diagnosis Note [id number] SHIRA VAZQUEZ MD [facility] [address] [address] 01/27/2024 14:04:46 01/27/2024 14:41:43 Vasomotor rhinitis 3999811 J30.0 Snoring 61820553 R06.83 Given PSG reportedly negative. She is being evaluated for medical treatment of obesity Body mass index 40+ - severely obese 668196606 Z68.42 Health Concerns Section Related Observation LastModified by Organization Detai ls LastModified Time None Recorded Concern Status LastModified by Organization Details LastModified Time None Recorded Payers Encounter Date Sequence Insurance Name Policy Number Policy Damon Covered Member ID Damon Member ID Guarantor Name 01/27/2024 1 [employer] [facility] ([id number]) [id number] Micaela Wagoner [id number] Micaela Wagoner Notes Date Note Type [...] mild dust mite allergy SHIRA JO MD [address] [place] [address], [address], [place] - [facility] 01/27/2024 14:44:18 OBGyn Episode No OBEpisode recorded.
== END 2024-04-05 12:55 | disposition home or self-care (01) ==
LOC: HO.LNP 12:54
PROVIDERS: PCP Nurse Practitioner Family; Visit Provider Nurse Practitioner Family
DX: R68.89 Other general symptoms and signs (principal); R05.9 Cough, unspecified; R09.89 Other specified symptoms and signs involving the circulatory and respiratory systems
CPT/HCPCS: 0241U

== ENCOUNTER 2024-04-05 12:54 | Outpatient (AMB) | payer OTHER, SELFPAY ==
--- NOTE | 2024-04-05 13:01 | MHC.OFFWIV ---
Intake Vital Signs 04/05/24 13:06 04/05/24 16:01 Height 5 ft 5 in Weight 264 lb BMI 43.9 BP 124/74 Blood Pressure Location Rt brachial Position Sitting Respiration 13 Pulse 110 H 90 Pulse Source Pulse Oximeter Auscultation Temp 98.2 F Temp Source Oral Pulse Oximetry (%) 98 Oxygen Delivery Method Room Air Intake Visit Reasons: Possible Sinus Infection Intake Note: Patient complaining of stuffy nose, bodyaches, hard to breath because of stuffy nose, and coughing up mucus started Thursday night. Patient Tobacco Use Status: Never used Tobacco Allergies dust mite Allergy (Severe, Uncoded 04/05/24 13:32) stuffy nose, cough Medication List - Last Reconciled 04/05/24 by Lois Nance, PATIENT ATTENDANT- albuterol sulfate 90 mcg/actuation 2 puffs inhalation Q6H PRN bupropion HCl SR 100 mg PO QAM ipratropium bromide 2 sprays intranasal BID-TID PRN spironolactone 25 mg PO DAILY tirzepatide (weight loss) (Zepbound) 2.5 mg (0.5 mL) subcut QWEEK Do you need a note to return to daycare/school/sports/work: Yes HPI HPI Comments History of Present Illness Details 23-year-old female with major depressive disorder, morbid obesity, mild intermittent asthma, GERD, hypertension, seasonal allergies, atopic dermatitis, scoliosis, KEKE, Iron Def anemia, hepatic steatosis (07/28/22 Abd CTA), PCOS Social: born in [facility] Health Maintenance: assoc pap 2022 Tdap 08/25/23 Declined flu vaccine 2023 The patient is a 23-year-old female presenting with symptoms of stuffy nose, body aches, cough, and difficulty breathing. The symptoms began on Thursday night, approximately two and a half days prior to this visit. The patient reports a sensation of congestion, a severe cough, and difficulty sleeping due to body aches. There is also mention of reddish and painful eyes, alongside headaches. Had stomach bug last week, this has resolved. Current symptoms are severe enough to disrupt daily activities and work obligations. She attempted self-management at home using Tylenol, which provided limited relief. Using KELBY prn Using nasal ipratropium without relief exam Awake alert NAD, mildly ill-appearing Sclera clear bilat, conjunctiva mild injection, no drainage, no photophobia Nares moderate amounts of clear drainage, turbinates within normal limits, mild bilat maxillary sinus tenderness with palpation bilat TM intact with some congestion bilat MMM, pharynx WNL RRR LS CTAB, hacking cough noted during exam without distress Plan - Conduct a viral swab for influenza, COVID-19, and Respiratory Syncytial Virus RSV) with results expected within 24 hours. - Prescribe Tamiflu if the flu is confirmed, assess for Paxlovid for COVID-19 treatment based on medication compatibility. - Recommend supportive care for RSV if confirmed. - Hold on antibiotics unless bacterial etiology is confirmed. - continue nasal spray ipratropium) for congestion management, alongside oral prednisone as an alternative approach to alleviate breathing difficulties. - Prescribe a cough suppressant, to be used three times daily as needed. - Advise the patient to refrain from work and recommend a period of rest, suggesting a potential return date of February 09. - Issue a note for work exemption to support absence. - Continue monitoring symptoms and adjust treatment based on swab outcomes. Communication of results and subsequent actions to be conducted through the patient portal or direct call, depending on the availability of results. RTO edu provided. Patient was informed and verbally consented to the use of an ambient scribe for clinic note documentation during this visit. Total time spent caring for the patient today was 30 minutes. This includes time spent before the visit reviewing the chart, time spent during the visit, and time spent after the visit on documentation This note is constructed using voice recognition software. While every effort has been made to ensure accuracy in teacher dramatics, still errors may have been included Sometimes, these errors may affect the content or meaning of the given sentence . [facility] Medical History Uncontrolled hypertension Abnormal stress test Acid reflux Sinusitis ALIX (obstructive sleep apnea) Chronic rhinitis Atopic dermatitis Asthma Surgical History No pertinent past surgical history Family History Mother Hypertension Pre-diabetes Arthritis Father Hypertension Maternal Grandmother Stroke Maternal Grandfather Diabetes Alcoholism Social History (Reviewed 03/30/24 @ 10:14 by NICK Márquez Housing: House Alcohol intake: current Alcohol intake frequency: a few times a month Alcohol type: wine Patient Tobacco Use Status: Never used Tobacco e-Cigarette/Vaping Use: Never Used Second Hand Smoke Exposure: No service: No Current occupational status: unemployed Cognitive needs: No Hearing needs: No Vision needs: Yes Female Reproductive History Menstrual Age of Menarche: 9 Physical Exam Vital Signs: Last Vital Signs Temp 98.2 F 04/05/24 13:06 Pulse 110 H 04/05/24 13:06 Resp 13 04/05/24 13:06 BP 124/74 04/05/24 13:06 Pulse Ox 98 04/05/24 13:06 Oxygen Delivery Method Room Air 04/05/24 13:06 BMI result Body Mass Index 43.9 Assessment & Plan Assessment & Plan (1) Flu-like symptoms: Code(s): R68.89 - Other general symptoms and signs Plan . Orders: Orders SARS-CoV2/FLU/RSV Today R09.89 - Other specified symptoms and signs involving the circulatory and respiratory systems Medications: New benzonatate 100 mg PO TID PRN 30 caps 1RF cough 10 days benzonatate 100 mg PO TID PRN 30 caps 1RF cough 10 days prednisone 20 mg PO DAILY 5 tabs 0RF Coding Level of Care Code Est Pt Level 4 (36989) Diagnoses Flu-like symptoms R68.89
[2024-04-05 13:06] VITALS: BP 124/74; PULSE 110; RESP 13; TEMP 36.8; O2SAT 98; BMI 43.9
--- OUTSIDE RECORDS SUMMARY | 2024-04-05 15:12 | XMS_ITS | Continuity of Care Document ---
Author Organization [facility] 2 [facility] [address] [place] [address] Phone [phone] Care Team Providers Care Airset Caster Name Role Phone Beverly Cadena Care Team Information Saddle Maker [phone] Problems Active Problems Provider Date Polycystic ovary [...] 2ml E66.9 Meseret Montero M.D. 09/30/2023 Z68.41 Zmvwkmmpdgewmh21xj Tablets Take 1 tablet by mouth once a day 90tabs Meseret Montero M.D. 09/02/2023 Enqdbpiirkxcj4en Tablets 1 tablet by poly th at 11 pm 1tafrank Montero M.D. 09/02/2023 Albuterol Sulfate MZE453(90Base) mcg/Act Aerosol 2 puff Inhaled Every 4 [...] Dexamethasone, Serum 404 ng/dL 11 1 Test(s) 360990-31-DH Progesterone LCMS was developed and its performance characteristics determined by [facility]. It has not been cleared or approved by the Food and Drug Administration. 2 Prediabetes: 5.7 - 6 .4 Diabetes: >6.4 Glycemic control for adults with diabetes: <7.0 3 This test was develo ped and its performance characteristics determined by [facility]. It has not been cleared or approved by the Food and Drug Administration. Reference Range: Adult Females Premenopausal 10 - 55 Postmenopausal 7 - 40 4 Reference Range: Pubertal: 36.0 - 125.0 20 - 49y: 24.6 - 122.0 >49y: 17.3 - 125.0 5 This test was develo ped and its performance characteristics determined by [facility]. It has not been cleared or approved [...] 35 - 290 11 This test was [employer] and its performance characteristics determined by [employer]. It has not been cleared or approved [...]
[2024-04-05 16:01] VITALS: PULSE 90
== END 2024-04-05 13:48 | disposition home or self-care (01) ==
PROVIDERS: PCP Nurse Practitioner Family; Visit Provider Nurse Practitioner Family
DX: R68.89 Other general symptoms and signs (principal)

== ENCOUNTER 2024-04-08 13:34 | Outpatient (REF) | payer OTHER, SELFPAY ==
--- NOTE | ~2024-04-08 | US_ITS ---
CLINICAL HISTORY: N92.1 - Excessive and frequent menstruation with irregular cycle US pelvis transvaginal and transabdominal Comparison: None Findings: Transabdominal and transvaginal scanning performed. Transvaginal imaging for better characterization of the ovaries. Anteverted uterus is 7.4 cm length. Normal myometrium. No endometrial lesion, 8 mm thickness. Right ovary 3.9 x 2.1 x 2.6 cm. Left ovary 3.5 x 2.1 x 2.3 cm. Normal color Doppler of both ovaries. No free fluid. IMPRESSION: 1. Normal pelvic ultrasound This document has been electronically signed by: Nellie Sanches MD on 04/09/2024 08:43:59
--- OUTSIDE RECORDS SUMMARY | 2024-04-08 16:08 | XMS_ITS | Continuity of Care Document ---
Author Organization [place] - [facility], [facility] Address [address] [place] [address] Care Team Providers Care Fender Repairer Name Role Phone JAVIER DOYLE Primary Care [...] 21 mcg (0.03 %) nasal spray 2023 [facility]/Pharmacy #[id number], [address] [facility], [place], [address], 14:40:39 Patient TargetsNo targets recorded. Patient InstructionsNo instructions recorded. Reason for Referral None Reported. Problems Name Problem SNOMED Code Status Onset Date Resolution Date Notes Provider Name and Address Organization Details Recorded Time Vasomotor rhinitis 0779334 Active SHIRA VAZQUEZ MD [address] [facility] [place] [address], [facility] [place], [address] , [facility] 4 14:36:03 Snoring 29055556 Active SHIRA VAZQUEZ MD [address] [facility] [place],[facility] [address], [facility] [place], [address] , [facility] 4 14:36:11 Problem Notes None recorded. Procedures Surgical History Date Name Laterality Status Provider Name and Address Organization Details Recorded Time 4 JMSNasal/Sinus Endoscopy completed SHIRA JO MD 100 [facility], [place], [address], [facility] 01/27/2024 14:37:32 Imaging Results None recorded. Procedure [...] Updated DateTime 01/27/2024 165.1 cm 44.9 kg/m2 003195.94 g Efren Wong [place] - [facility] 01/27/2024 14:25:25 Social History None recorded. Functional Status None recorded. Mental Status None recorded. Family History Nothing Reported. Medical History Condition Response Anxiety Gynecological HistoryNo gynecological history recorded. Obstetrics History GPAL:G 0 P 0 0 0 0 Past Encounters Encounter ID Performer Location Encounter Start Date Encounter Closed Date Diagnosis/Indication Diagnosis SNOMED-CT Code Diagnosis ICD10 Code Diagnosis Note [id number] SHIRA VAZQUEZ MD [facility] [address] [address] 01/27/2024 14:04:46 01/27/2024 14:41:43 Vasomotor rhinitis 8648613 J30.0 Snoring 35337734 R06.83 Given PSG reportedly negative. She is being evaluated for medical treatment of obesity Body mass index 40+ - severely obese 336363781 Z68.42 Health Concerns Section Related Observation LastModified by Organization Detai ls LastModified Time None Recorded Concern Status LastModified by Organization Details LastModified Time None Recorded Payers Encounter Date Sequence Insurance Name Policy Number Policy Damon Covered Member ID Damon Member ID Guarantor Name 01/27/2024 1 [employer] [facility] ([id number]) [id number] Micaela Wagoner [id number] Micaela Wagoner Notes Date Note Type [...] mild dust mite allergy SHIRA JO MD [address] [place] [address], [address], [place] - [facility] 01/27/2024 14:44:18 OBGyn Episode No OBEpisode recorded.
== END 2024-04-08 13:35 | disposition home or self-care (01) ==
LOC: HO.US 13:34
PROVIDERS: PCP Nurse Practitioner Family; Visit Provider Advanced Practice Midwife
DX: N92.1 Excessive and frequent menstruation with irregular cycle (principal); E28.2 Polycystic ovarian syndrome; E66.01 Morbid (severe) obesity due to excess calories
CPT/HCPCS: 76830; 76856

== ENCOUNTER → 2024-04-08 13:36 | Outpatient (BNV) | payer OTHER, SELFPAY | PROVIDERS: PCP Nurse Practitioner Family; Visit Provider Radiology Diagnostic Radiology | DX: N92.1 Excessive and frequent menstruation with irregular cycle (principal) | CPT/HCPCS: 76830; 76856 ==

== ENCOUNTER 2024-05-26 09:34 | Outpatient (AMB) | payer OTHER, SELFPAY ==
--- NOTE | 2024-05-26 09:45 | A.OFFPSYCH_ITS ---
Intake Intake Visit Reasons: consultation Medical Translator Required: No Allergies dust mite Allergy (Severe, Uncoded 04/05/24 13:32) stuffy nose, cough Medication List - Last Reconciled 05/26/24 by Angi Cage APRN albuterol sulfate 90 mcg/actuation 2 puffs inhalation Q6H PRN benzonatate 100 mg PO TID PRN 10 days benzonatate 100 mg PO TID PRN 10 days bupropion HCl SR 100 mg PO QAM bupropion HCl SR 150 mg PO BID ipratropium bromide 2 sprays intranasal BID-TID PRN oseltamivir (Tamiflu) 75 mg PO Q12H 5 days prednisone 20 mg PO DAILY spironolactone 25 mg PO DAILY tirzepatide (weight loss) (Zepbound) 2.5 mg (0.5 mL) subcut QWEEK HPI- Psychiatric Chief Complaint: consultation HPI Narrative: pt referred by PCP with question of ADHD diagnosis. Pt has therapist and psychiatrist at [facility]. Pt says her providers did not feel able to diagnosis or assess her for ADHD. Pt has been treated for anxiety and depression with moderate benefit. Pt stats she began to wonder about ADHD for herself in middle school; She had always daydreamed and gotten reprimanded for not paying attention but was able to keep up academically until middle school when there was les structure and more demands. She had a hard time getting homework done because she would forget it. she would forget imprortant details. she would forget to bring things back to school like permission slips for field trips. she often brought things inlate of very close to the deadline. She grew up in a [facility] where mental health or learning difficulties were not acknowledged. In adult [place] she often forgets appts.. she is late to appts or to work by 5-10 minuts. she has trouble with motivating herself to finish boring asks such as folding laundry, cleaning her bedroom ; she will start projects and then get distracted. she will at times over focus o certain activities and hours will go by and then she has not cone some priority activity. She is currently taking wellbutrin XL 300mg every morning and its not helping. Her PHQ9= 13 and the score that are highest are trouble settling down at night for sleep, feeling tired, and trouble concentrating. Her GAD7= 8 she worries alot about forgetting things she is supposed to do. Pt ADHD self report scale is 18 (any score above 13 strongly indicates ADHD) She has more inattentive symptoms but does have fidgetiness, and interrupting people frequently, finishing their sentence, talking too much in social situations. Past Psychiatric History: outpt therapy and psychiatry at [facility] Subjective Subjective Subjective Medication Compliance: Yes Side effects from medications: No Review of Systems Medical Review of Systems: unchanged Mental Status Exam Mental Status Exam Patient Appearance: Well Grooomed and Appropriate Patient Orientation: Person, Place, Time and Situation Level of Consciousness: Awake and Appropriate Patient Behavior: Appropriate and Cooperative Mood Description: Calm Affect Description: Calm Patient Cognition Impaired: No Ability to Follow Directions: Good Speech Pattern: Clear Memory Description: Intact Hallucinations: None Delusions: Not Present Thought Process: Intact Thought Content: positive for Intact Judgement: Good Assessment and Plan Assessment & Plan (1) ADHD (attention deficit hyperactivity disorder), inattentive type: Status: Acute Code(s): F90.0 - Attention-deficit hyperactivity disorder, predominantly inattentive type (2) KEKE (generalized anxiety disorder): Status: Acute Code(s): F41.1 - Generalized anxiety disorder (3) Mild major depression: Status: Acute Code(s): F32.0 - Major depressive disorder, single episode, mild Plan taper wellbutrin to XL 150mg qam x 10 days then stop trial of ritalin 10 mg take one tab twicea day 4 hours apart retrun in 3-4 weeks for follow up Medications: New methylphenidate HCl (Ritalin) Partial Fill upon patient request. 10 mg PO BID 60 tabs 0RF ADHD bupropion HCl XL (Wellbutrin XL) take one daily in am for 10 days then stop 150 mg PO QAM 10 tabs 0RF Discontinued oseltamivir (Tamiflu) Discontinued Reason: No Longer Medically Relevant 75 mg PO Q12H 5 days 10 caps 0RF benzonatate Discontinued Reason: Patient no longer taking 100 mg PO TID 10 days PRN 30 caps 1RF cough prednisone Discontinued Reason: More recent result 20 mg PO DAILY 5 tabs 0RF Orders: Orders Vitamin B12 and Folate Today F90.0 - Attention-deficit hyperactivity disorder, predominantly inattentive type Vitamin B6 Today F90.0 - Attention-deficit hyperactivity disorder, predominantly inattentive type Vitamin D 25-OH Total Today F90.0 - Attention-deficit hyperactivity disorder, predominantly inattentive type Counseling and coordination of Care Pt. Self Management counseling: Maintenance-social rhythm, Mod caffeine/ETOH intake, Nutrition education and improvement, Sleep hygiene, Behavior activation, General coping skills and Problem solving Medication management counseling: Effectiveness, Side effects, Dosing range, Duration, Drug interaction and Adherence Diagnosis and Prognosis Counseling: Accuracy of diagnosis, Prognosis over time, Impact of diagnosis on life functions, Impact of family relationship, Problematic behaviors secondary to diagnosis and Adequacy of current interventions Details: I spent 70 minutes reviewing the record, seeing the patient and documenting in the medical record. Counseling provided to the patient/caregiver as outlined below. Addressed patient/caregiver concerns regarding current medication regime including effective adherence. Addressed patient/caregiver concerns regarding diagnosis and prognosis including accuracy of diagnosis, prognosis over time, impact of diagnosis. Addressed patient/caregiver concerns regarding impact of recent stressors. [facility] Medical History Uncontrolled hypertension Abnormal stress test Acid reflux Sinusitis ALIX (obstructive sleep apnea) Chronic rhinitis Atopic dermatitis Asthma Surgical History No pertinent past surgical history Family History Mother Hypertension Pre-diabetes Arthritis Father Hypertension Maternal Grandmother Stroke Maternal Grandfather Diabetes Alcoholism Social History Housing: House Alcohol intake: current Alcohol intake frequency: a few times a month Alcohol type: wine Patient Tobacco Use Status: Never used Tobacco e-Cigarette/Vaping Use: Never Used Second Hand Smoke Exposure: No service: No Current occupational status: unemployed Cognitive needs: No Hearing needs: No Vision needs: Yes Social History: grew up inlarge family - youngest of 7 children. lived with M & F works FT in [employer] at [employer] Substance History: none Trauma History: none Coding Level of Care Code Psych Diag Eval w/Med (71243) Diagnoses ADHD (attention deficit hyperactivity disorder), inattentive type F90.0 KEKE (generalized anxiety disorder) F41.1 Mild major depression F32.0
--- OUTSIDE RECORDS SUMMARY | 2024-05-26 10:52 | XMS_ITS | Continuity of Care Document ---
Author Organization [facility] [address] [place] [address] Phone [phone] Care Team Providers Care Emblem Fuser Tender Name Role Phone Beverly Cadena Care Team Information Architect In Training [phone] Problems Active Problems Provider Date Polycystic ovary [...] 2ml E66.9 Meseret Montero M.D. 09/30/2023 Z68.41 Tmxbakpenfgssr15xd Tablets Take 1 tablet by mouth once a day 90tabs Meseret Montero M.D. 09/02/2023 [id number] Tablets 1 tablet by poly th at 11 pm 1tafrank Montero M.D. 09/02/2023 Albuterol Sulfate IGL463(90Base) mcg/Act Aerosol 2 puff Inhaled Every 4 [...] Dexamethasone, Serum 404 ng/dL 11 1 Test(s) 852332-92-JF Progesterone LCMS was developed and its performance characteristics determined by [facility]. It has not been cleared or approved by the Food and Drug Administration. 2 Prediabetes: 5.7 - 6 .4 Diabetes: >6.4 Glycemic control for adults with diabetes: <7.0 3 This test was develo ped and its performance characteristics determined by [facility]. It has not been cleared or approved by the Food and Drug Administration. Reference Range: Adult Females Premenopausal 10 - 55 Postmenopausal 7 - 40 4 Reference Range: Pubertal: 36.0 - 125.0 20 - 49y: 24.6 - 122.0 >49y: 17.3 - 125.0 5 This test was develo ped and its performance characteristics determined by [facility]. It has not been cleared or approved [...] 35 - 290 11 This test was [employer] ped and its performance characteristics determined by [employer]. It has not been cleared or approved [...]
--- OUTSIDE RECORDS SUMMARY | 2024-05-26 10:52 | XMS_ITS | Data Portability ---
Author Organization [place] - [facility], Allergy Address [address] [address] Care Team Providers Care Mobile Device Engineer Name Role Phone JAVIER DOYLE Primary Care [...] 21 mcg (0.03 %) nasal spray 2023 [facility]/Pharmacy #[id number], [address] [facility], [place], [address], 14:40:39 Patient TargetsNo targets recorded. Patient InstructionsNo instructions recorded. Reason for Referral None Reported. Problems Name Problem SNOMED Code Status Onset Date Resolution Date Notes Provider Name and Address Organization Details Recorded Time Vasomotor rhinitis 9969554 Active SHIRA VAZQUEZ MD [address], [facility] [place], [address] , [facility] - [facility] 4 14:36:03 Snoring 97951045 Active 024 SHIRA VAZQUEZ MD [address], [facility] [place], [address] , [facility] - [facility] 4 14:36:11 Problem Notes None recorded. Procedures Surgical History Date Name Laterality Status Provider Name and Address Organization Details Recorded Time 4 JMSNasal/Sinus Endoscopy completed SHIRA JO MD [address] [facility] [place],[address], [place], [address], [facility] 01/27/2024 14:37:32 Imaging Results None recorded. Procedure [...] Updated DateTime 01/27/2024 165.1 cm 44.9 kg/m2 001166.94 g Efren Marvin [place] - [facility] 01/27/2024 14:25:25 Social History None recorded. Functional Status None recorded. Mental Status None recorded. Family History Nothing Reported. Medical History Condition Response Anxiety Gynecological HistoryNo gynecological history recorded. Obstetrics History GPAL:G 0 P 0 0 0 0 Past Encounters Encounter ID Performer Location Encounter Start Date Encounter Closed Date Diagnosis/Indication Diagnosis SNOMED-CT Code Diagnosis ICD10 Code Diagnosis Note [id number] SHIRA VAZQUEZ MD [facility] [address] [place] [address] 01/27/2024 14:04:46 01/27/2024 14:41:43 Vasomotor rhinitis 7186546 J30.0 Snoring 02302754 R06.83 Given PSG reportedly negative. She is being evaluated for medical treatment of obesity Body mass index 40+ - severely obese 921129314 Z68.42 Health Concerns Section Related Observation LastModified by Organization Detai ls LastModified Time None Recorded Concern Status LastModified by Organization Details LastModified Time None Recorded Advance Directives Directive None Recorded Payers Encounter Date Sequence Insurance Name Policy Number Policy Damon Covered Member ID Damon Member ID Guarantor Name 01/27/2024 1 [employer] [facility] ([id number]) [id number] Micaela Wagoner [id number] Micaela Wagoner Notes Date Note Type [...] dust mite allergy SHIRA JO MD [address] [place] [address], [place], [address], [place] - [facility] 01/27/2024 14:44:18 OBGyn Episode No OBEpisode recorded.
== END 2024-05-26 10:41 | disposition home or self-care (01) ==
LOC: HO.HOP 09:34
PROVIDERS: PCP Nurse Practitioner Family; Visit Provider Clinical Nurse Specialist Psychiatric/Mental Health
DX: F90.0 Attention-deficit hyperactivity disorder, predominantly inattentive type (principal); F41.1 Generalized anxiety disorder; F32.0 Major depressive disorder, single episode, mild
CPT/HCPCS: 90792

== ENCOUNTER → 2024-05-26 09:34 | Outpatient (BNVA) | payer OTHER, SELFPAY | PROVIDERS: PCP Nurse Practitioner Family; Visit Provider Clinical Nurse Specialist Psychiatric/Mental Health | DX: F90.0 Attention-deficit hyperactivity disorder, predominantly inattentive type (principal); F41.1 Generalized anxiety disorder; F32.0 Major depressive disorder, single episode, mild | CPT/HCPCS: 90792 ==

== ENCOUNTER 2024-06-20 09:58 | Outpatient (AMB) | payer OTHER, SELFPAY ==
--- NOTE | 2024-06-20 10:12 | MHC.OFFVISPS ---
Intake Intake Visit Reasons: consultation Veterinary Bacteriologist Required: No Allergies dust mite Allergy (Severe, Uncoded 04/05/24 13:32) stuffy nose, cough Medication List - Last Reconciled 06/20/24 by Angi Cage APRN albuterol sulfate 90 mcg/actuation 2 puffs inhalation Q6H PRN benzonatate 100 mg PO TID PRN 10 days ipratropium bromide 2 sprays intranasal BID-TID PRN spironolactone 25 mg PO DAILY tirzepatide (weight loss) (Zepbound) 2.5 mg (0.5 mL) subcut QWEEK 4 weeks HPI- Psychiatric Chief Complaint: consultation HPI Narrative: Pt did well tapering off the wellbutrin. no adverse effect. She did well with ritalin 10mg BID but each dose only seemed effective fro 1.5 hours. she had no adverse effects from ritalin. No other changes. No SI or HI. she reports mild anxiety and some trouble relaxing and settling down at night. she has coping skills to manage for example listening to rain sounds. Past Psychiatric History: outpt therapy and psychiatry at [facility] Subjective Subjective Subjective Medication Compliance: Yes Side effects from medications: No Review of Systems Medical Review of Systems: unchanged Mental Status Exam Mental Status Exam Patient Appearance: Well Grooomed and Appropriate Patient Orientation: Person, Place, Time and Situation Level of Consciousness: Awake, Appropriate and Alert Mood Description: Withdrawn Affect Description: Withdrawn Patient Cognition Impaired: No Ability to Follow Directions: Good Speech Pattern: Clear and Coherent Memory Description: Intact Hallucinations: None Delusions: Not Present Thought Process: Intact and Goal Oriented Thought Content: positive for Intact and positive for Goal Oriented Judgement: Good Assessment and Plan Assessment & Plan (1) ADHD (attention deficit hyperactivity disorder), inattentive type: Status: Acute Code(s): F90.0 - Attention-deficit hyperactivity disorder, predominantly inattentive type Plan chane to long acting ritalin staret concerta 36mg qam advised to send message or call in 2-3 weeks if feels she needs increase as the 36mg is a low dose return in 6 weeks Medications: New methylphenidate HCl ER (Concerta) Partial Fill upon patient request. 36 mg PO QAM 30 tabs 0RF Counseling and coordination of Care Pt. Self Management counseling: Maintenance-social rhythm, Mod caffeine/ETOH intake, Sleep hygiene and General coping skills Medication management counseling: Effectiveness, Side effects, Dosing range, Duration, Drug interaction and Adherence Diagnosis and Prognosis Counseling: Accuracy of diagnosis, Prognosis over time, Impact of diagnosis on life functions, Impact of family relationship, Problematic behaviors secondary to diagnosis and Adequacy of current interventions Details: I spent 35 minutes reviewing the record, seeing the patient and documenting in the medical record. Counseling provided to the patient/caregiver as outlined below. Addressed patient/caregiver concerns regarding current medication regime including effective adherence. Addressed patient/caregiver concerns regarding diagnosis and prognosis including accuracy of diagnosis, prognosis over time, impact of diagnosis. Addressed patient/caregiver concerns regarding impact of recent stressors. [facility] Medical History Uncontrolled hypertension Abnormal stress test Acid reflux Sinusitis ALIX (obstructive sleep apnea) Chronic rhinitis Atopic dermatitis Asthma Surgical History No pertinent past surgical history Family History Mother Hypertension Pre-diabetes Arthritis Father Hypertension Maternal Grandmother Stroke Maternal Grandfather Diabetes Alcoholism Social History Housing: House Alcohol intake: current Alcohol intake frequency: a few times a month Alcohol type: wine Patient Tobacco Use Status: Never used Tobacco e-Cigarette/Vaping Use: Never Used Second Hand Smoke Exposure: No service: No Current occupational status: unemployed Cognitive needs: No Hearing needs: No Vision needs: Yes Social History: grew up inlarge family - youngest of 7 children. lived with [employer] works FT in [employer]. Substance History: none Trauma History: none Coding Level of Care Code Est Pt Level 4 (14295) Diagnoses ADHD (attention deficit hyperactivity disorder), inattentive type F90.0
--- OUTSIDE RECORDS SUMMARY | 2024-06-20 11:04 | XMS_ITS | Continuity of Care Document ---
Author Organization [facility] [address] [place] [address] Phone [phone] Care Team Providers Care Hand Cloth Folder Name Role Phone Beverly Cadena Care Team Information Electrical Instrument Technician [phone] Problems Active Problems Provider Date Polycystic ovary [...] 2ml E66.9 Meseret Montero M.D. 09/30/2023 Z68.41 Weahutxpwgtefl78fe Tablets Take 1 tablet by mouth once a day 90tabs Meseret Montero M.D. 09/02/2023 Ijgbwsmwfdkec3qg Tablets 1 tablet by poly th at 11 pm 1tafrank Montero M.D. 09/02/2023 Albuterol Sulfate IUG059(90Base) mcg/Act Aerosol 2 puff Inhaled Every 4 [...] [facility] Hemoglobin A1c 5.6 % 4.8-5.6 2 Glucose 09/09/2023 [facility] Glucose 102 mg/dL High 70-99 Testosterone Free & Total With SHBG 09/09/2023 [facility] Testosterone, Serum (Total) 29 ng/dL 3 Sex Hormone Binding Globulin 20.0 nmol/L Low 4 % Free Testosterone 2.6 % 5 Free Testosterone, S 7.5 pg/mL High 6 Dhea-Sulfate 09/09/2023 [facility] Dhea-Sulfate 168.0 g /dL 110.0-431 .7 FSH And LH 09/09/2023 [facility] LH 7.6 mIU/mL 7 FSH 5.6 mIU/mL 8 Cortisol 09/09/2023 [facility] Cortisol 0.4 g /dL Low 6.2-19.4 9 17-Oh Progesterone LCMS 09/09/2023 [facility] 17-Oh Progesterone LCMS 21 ng/dL 10 Dexamethasone, Serum 09/09/2023 [facility] Dexamethasone, Serum 404 ng/dL 11 1 Test(s) 927280-74-HU Progesterone LCMS was developed and its performance characteristics determined by [facility]. It has not been cleared or approved by the Food and Drug Administration. 2 Prediabetes: 5.7 - 6 .4 Diabetes: >6.4 Glycemic control for adults with diabetes: <7.0 3 This test was develo ped and its performance characteristics determined by [employer]. It has not been cleared or approved by the Food and Drug Administration. Reference Range: Adult Females Premenopausal 10 - 55 Postmenopausal 7 - 40 4 Reference Range: Pubertal: 36.0 - 125.0 20 - 49y: 24.6 - 122.0 >49y: 17.3 - 125.0 5 This test was develo ped and its performance characteristics determined by [facility]. [...] 35 - 290 11 This test was develo ped and its performance characteristics determined by [facility]. It has not been cleared or approved [...]
--- OUTSIDE RECORDS SUMMARY | 2024-06-20 11:04 | XMS_ITS | Data Portability ---
Author Organization [place] - [facility], Allergy Address [address] [address] Care Team Providers Care All Terrain Vehicle Racer Name Role Phone JAVIER DOYLE Primary Care Provider [phone] Assessment Encounter Date Assessment Date Assessment LastModified [...] 21 mcg (0.03 %) nasal spray 2023 [facility]/Pharmacy #[id number], [address] [facility], [place], [address], 14:40:39 Patient TargetsNo targets recorded. Patient InstructionsNo instructions recorded. Reason for Referral None Reported. Problems Name Problem SNOMED Code Status Onset Date Resolution Date Notes Provider Name and Address Organization Details Recorded Time Vasomotor rhinitis 8756287 Active SHIRA VAZQUEZ MD [address], [place], [address] , [facility] 4 14:36:03 Snoring 47502957 Active 024 SHIRA VAZQUEZ MD [address], [place], [address] , [facility] 4 14:36:11 Problem Notes None recorded. Procedures Surgical History Date Name Laterality Status Provider Name and Address Organization Details Recorded Time 4 JMSNasal/Sinus Endoscopy completed SHIRA JO MD 100 [facility] [address],[facility] [address], [place], [address], [facility] 01/27/2024 14:37:32 Imaging Results None recorded. [...] Updated DateTime 01/27/2024 165.1 cm 44.9 kg/m2 060557.94 g Efren Marvin [place] - [facility] 01/27/2024 14:25:25 Social History None recorded. Functional Status None recorded. Mental Status None recorded. Family History Nothing Reported. Medical History Condition Response Anxiety Gynecological HistoryNo gynecological history recorded. Obstetrics History GPAL:G 0 P 0 0 0 0 Past Encounters Encounter ID Performer Location Encounter Start Date Encounter Closed Date Diagnosis/Indication Diagnosis SNOMED-CT Code Diagnosis ICD10 Code Diagnosis Note [id number] SHIRA VAZQUEZ MD [facility] [address] [place] [address] 01/27/2024 14:04:46 01/27/2024 14:41:43 Vasomotor rhinitis 1342144 J30.0 Snoring 01836469 R06.83 Given PSG reportedly negative. She is being evaluated for medical treatment of obesity Body mass index 40+ - severely obese 353874398 Z68.42 Health Concerns Section Related Observation LastModified by Organization Detai ls LastModified Time None Recorded Concern Status LastModified by Organization Details LastModified Time None Recorded Advance Directives Directive None Recorded Payers Encounter Date Sequence Insurance Name Policy Number Policy Damon Covered Member ID Damon Member ID Guarantor Name 01/27/2024 1 [employer] OF [facility] ([id number]) [id number] Micaela Wagoner [id number] Micaela Wagoner Notes Date Note Type Note Provider Name and Address Organization Details Recorded Time 01/27/2024 text/html 23-year-old fema le seen for an opinion regarding nasal congestion refractory to fluticasone nasal spray. She notes snoring but had a negative sleep study by report. Had sinus x-rays and seen for an opinion regarding possible septal deviation. She notes mild dust mite allergy SHIRA JO MD [address] [place] [address],[place] [address], [place], [address], [place] - [facility] 01/27/2024 14:44:18 OBGyn Episode No OBEpisode recorded.
== END 2024-06-20 10:26 | disposition home or self-care (01) ==
LOC: HO.HOP 09:58
PROVIDERS: PCP Nurse Practitioner Family; Visit Provider Clinical Nurse Specialist Psychiatric/Mental Health
DX: F90.0 Attention-deficit hyperactivity disorder, predominantly inattentive type (principal)
CPT/HCPCS: 99214

== ENCOUNTER 2024-06-20 09:58 | Outpatient (REF) | payer OTHER, SELFPAY ==
--- OUTSIDE RECORDS SUMMARY | 2024-06-20 11:39 | XMS_ITS | Continuity of Care Document ---
Author Organization [facility] [address] [facility] [address] [place] [address] Phone [phone] Care Team Providers Care Appeals Representative Name Role Phone Beverly Cadena Care Team Information Civil Lawyer [phone] Problems Active Problems Provider Date Polycystic ovary [...] 2ml E66.9 Meseret Montero M.D. 09/30/2023 Z68.41 Qvaeoxyskyscel13hd Tablets Take 1 tablet by mouth once a day 90tabs Meseret Montero M.D. 09/02/2023 Ijfulmzqronuu0jb Tablets 1 tablet by poly th at 11 pm 1tafrank Montero M.D. 09/02/2023 Albuterol Sulfate GQI803(90Base) mcg/Act Aerosol 2 puff Inhaled Every 4 [...] Dexamethasone, Serum 404 ng/dL 11 1 Test(s) 304365-79-JG Progesterone LCMS was developed and its performance characteristics determined by [facility]. It has not been cleared or approved by the Food and Drug Administration. 2 Prediabetes: 5.7 - 6 .4 Diabetes: >6.4 Glycemic control for adults with diabetes: <7.0 3 This test was develo ped and its performance characteristics determined by [employer]. It has not been cleared or approved [...] ped and its performance characteristics determined by [facility]. It has not been cleared or approved [...]
[2024-06-20 12:19] LABS: Vitamin D 25-OH Total 28.7 ng/mL (>30)
[2024-06-20 12:26] LABS: Vitamin B12 720 pg/mL (200-900)
[2024-06-24 15:53] LABS: Vitamin B6 30.5 ng/mL (2.1-21.7)
== END 2024-06-20 09:59 | disposition home or self-care (01) ==
LOC: HO.LAB 09:58
PROVIDERS: PCP Nurse Practitioner Family; Visit Provider Clinical Nurse Specialist Psychiatric/Mental Health
DX: F90.0 Attention-deficit hyperactivity disorder, predominantly inattentive type (principal)
CPT/HCPCS: 36415; 82306; 82607; 82746; 84207

== ENCOUNTER 2024-07-04 09:33 | Outpatient (AMB) | payer OTHER, SELFPAY ==
--- NOTE | 2024-07-04 09:35 | A.OFFVIS_ITS ---
Vital Signs 07/04/24 09:36 Height 5 ft 5 in Weight 258 lb 2.581 oz BMI 43.0 BP 110/76 Blood Pressure Location Rt brachial Position Sitting Pulse 95 Pulse Source Pulse Oximeter Pulse Oximetry (%) 95 Oxygen Delivery Method Room Air Intake Visit Reasons: PCOS Intake Note: Patient present today for PCOS follow up. 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 Accompanied by: Self / Same As Patient Allergies dust mite Allergy (Severe, Uncoded 07/04/24 09:38) stuffy nose, cough Medication List - Last Reconciled 07/04/24 by Lavelle Garcia MD albuterol sulfate 90 mcg/actuation 2 puffs inhalation Q6H PRN benzonatate 100 mg PO TID PRN 10 days ipratropium bromide 2 sprays intranasal BID-TID PRN methylphenidate HCl ER (Concerta) 36 mg PO QAM spironolactone 25 mg PO DAILY tirzepatide (weight loss) (Zepbound) 2.5 mg (0.5 mL) subcut QWEEK HPI Comments Details: 24 YO Female who is seen in consultation at the request of her PCP for PCOS/Amenorrhea.Saw endo at [facility] . No workup available Menarche was age 9 . Menses have been irregular. at age 16 skips menses 1-2 mos OCP use: placed on non-estrogen BCP but caused wt gain. 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 Tolerating nicely. Getting IUD . Sprionolactone helping , prescribed by another physician The patient is a 24-year-old female presenting with weight management and contraceptive planning due to PCOS. With PCOS, the patient faces challenges of hirsutism and obesity, currently weighing 255 lbs, a slight decrease since recording 258 lbs last month. She started on Zepbound one month ago to address weight concerns. The initial dose brought about mild nausea and dizziness, but no other adverse effects have been observed. The patient wishes for a dosage increase to enhance weight loss effects, monitored via the [employer] pathway. Regarding contraceptive measures, she has not used control pills since starting spironolactone, which was prescribed to help with hirsutism. With concerns over medication consistency due to her irregular work schedule, she leans toward an IUD. However, the potential of estrogen-containing oral contraceptives to diminish hirsutism and acne increase their attractiveness, even if an IUD affords a non-estrogen avenue for preventing . The patient's therapeutic regimen includes spironolactone 25 mg per day, though informed that a higher dosage often garners clinical results. Balancing reliable contraception to avoid unintended while using spironolactone will remain pivotal. - Zepbound, initiated one month ago via [employer], reported weight reduction from 258 lbs to 255 lbs, with minor initial nausea and dizziness but otherwise well tolerated. - Spironolactone 25 mg daily, for the management of hirsutism, prescribed by a different physician. [facility] Medical History Uncontrolled hypertension Abnormal stress test Acid reflux Sinusitis ALIX (obstructive sleep apnea) Chronic rhinitis Atopic dermatitis Asthma Surgical History No pertinent past surgical history Family History Mother Hypertension Pre-diabetes Arthritis Father Hypertension Maternal Grandmother Stroke Maternal Grandfather Diabetes Alcoholism Social History Housing: House Alcohol intake: current Alcohol intake frequency: a few times a month Alcohol type: wine Patient Tobacco Use Status: Never used Tobacco e-Cigarette/Vaping Use: Never Used Second Hand Smoke Exposure: No service: No Current occupational status: unemployed Cognitive needs: No Hearing needs: No Vision needs: Yes Female Reproductive History Menstrual Age of Menarche: 9 Physical Exam Vital Signs: BMI result Body Mass Index 43.0 Assessment & Plan Assessment & Plan (1) PCOS (polycystic ovarian syndrome): Code(s): E28.2 - Polycystic ovarian syndrome Category: Medical Plan: This is a 24-year-old white female with a history of hyperandrogenism due to PCOS. 1. Obesity due to Polycystic Ovary Syndrome The patient has lost 3 pounds since starting Zepbound with minimal side effects. I approved increasing her dose to 5 mg to further aid in weight loss, con tributing positively to her PCOS management. 2. Hirsutism associated with PCOS The patient is on spironolactone 25 mg daily, prescribed by another physician. While some improvement is reported, I emphasized the need for concurrent contraception to prevent potential teratogenic effects. The patient may consider increasing the dose for better treatment outcomes after establishing reliable contraception. I discussed with the patient the efficacy and side effects of Zepbound in managing obesity linked to PCOS and approved a dosage increase due to demonstrated tolerance. Emphasizing the importance of reliable contraception due to spironolactone's teratogenic risk, an IUD was chosen suited to the patient?s scheduling needs. An increase to spironolactone's therapeutic levels could be considered later, provided contraception ensures safety. I mentioned follow-up with our nurse practitioner Amena Pinon NP specializing in weight management in a month, enhancing the long-term management plan. Reiterated the significance of the patient taking part in shared decision-making based on her lifestyle, treatment tolerances, and preferences. - Continue Zepbound and increase the dosage to 5 mg as per prescription. - Schedule IUD insertion for reliable contraception while on spironolactone. - Be aware of contraceptive needs due to spironolactone risks during potential . - Follow-up with nurse practitioner for weight management strategies. - The patient had an opportunity to ask questions regarding treatment plan. The patient expressed understanding and agreement with the above treatment plan. Patient was informed and verbally consented to the use of an ambient scribe for clinic note documentation during this visit. Medications: New tirzepatide (weight loss) (Zepbound) 5 mg (0.5 mL) subcut QWEEK 2 mL 4RF Discontinued tirzepatide (weight loss) (Zepbound) Discontinued Reason: Doctor's Order 2.5 mg (0.5 mL) subcut QWEEK 2 mL 1RF Coding Level of Care Code Est Pt Level 3 (69877) Diagnoses PCOS (polycystic ovarian syndrome) E28.2
[2024-07-04 09:36] VITALS: BP 110/76; PULSE 95; O2SAT 95; BMI 43.0
--- OUTSIDE RECORDS SUMMARY | 2024-07-04 10:39 | XMS_ITS | Data Portability ---
Author Organization [place] - [facility], Allergy Address [address] [address] Care Team Providers Care Putty And Caulking Supervisor Name Role Phone JAVIER DOYLE Primary Care [...] mcg (0.03 %) nasal spray 2023 [facility]/Pharmacy #[id number], [address] [facility], [place], [address], 14:40:39 Patient TargetsNo targets recorded. Patient InstructionsNo instructions recorded. Reason for Referral None Reported. Problems Name Problem SNOMED Code Status Onset Date Resolution Date Notes Provider Name and Address Organization Details Recorded Time Vasomotor rhinitis 8954735 Active SHIRA VAZQUEZ MD [address], [place], [address] , [facility] 4 14:36:03 Snoring 44645708 Active 024 SHIRA VAZQUEZ MD [address], [place], [address] , [facility] 4 14:36:11 Problem Notes None recorded. Procedures Surgical History Date Name Laterality Status Provider Name and Address Organization Details Recorded Time 4 JMSNasal/Sinus Endoscopy completed SHIRA JO MD [facility] [address],[facility] [address], [place], [address], [facility] 01/27/2024 14:37:32 Imaging Results None recorded. Procedure [...] Updated DateTime 01/27/2024 165.1 cm 44.9 kg/m2 579224.94 g Efren Marvin [place] - [facility] 01/27/2024 14:25:25 Social History None recorded. Functional Status None recorded. Mental Status None recorded. Family History Nothing Reported. Medical History Condition Response Anxiety Gynecological HistoryNo gynecological history recorded. Obstetrics History GPAL:G 0 P 0 0 0 0 Past Encounters Encounter ID Performer Location Encounter Start Date Encounter Closed Date Diagnosis/Indication Diagnosis SNOMED-CT Code Diagnosis ICD10 Code Diagnosis Note [id number] SHIRA VAZQUEZ MD [facility] [address] [place] [address] 01/27/2024 14:04:46 01/27/2024 14:41:43 Vasomotor rhinitis 5359381 J30.0 Snoring 25946817 R06.83 Given PSG reportedly negative. She is being evaluated for medical treatment of obesity Body mass index 40+ - severely obese 635513208 Z68.42 Health Concerns Section Related Observation LastModified by Organization Detai ls LastModified Time None Recorded Concern Status LastModified by Organization Details LastModified Time None Recorded Advance Directives Directive None Recorded Payers Encounter Date Sequence Insurance Name Policy Number Policy Damon Covered Member ID Damon Member ID Guarantor Name 01/27/2024 1 [employer] ADMINISTRAT[employer] OF [facility] (O) [id number] Micaela Wagoner [id number] Micaela Wagoner Notes Date Note Type [...] mild dust mite allergy SHIRA JO MD [address] [place] [address],[place] [address], [place], [address], [place] - [facility] 01/27/2024 14:44:18 OBGyn Episode No OBEpisode recorded.
--- OUTSIDE RECORDS SUMMARY | 2024-07-04 10:39 | XMS_ITS | Continuity of Care Document ---
Author Organization [facility] [address] [facility] [address] [place] [address] Phone [phone] Care Team Providers Care Plastic Parts Designer Name Role Phone Beverly Cadena Care Team Information Office Rn [phone] Problems Active Problems Provider Date Polycystic ovary [...] 2ml E66.9 Meseret Montero M.D. 09/30/2023 Z68.41 Rwndnkbmvubmkh92ib Tablets Take 1 tablet by mouth once a day 90tabs Meseret Montero M.D. 09/02/2023 Jjndxetynlpoo3pa Tablets 1 tablet by poly th at 11 pm 1tafrank Montero M.D. 09/02/2023 Albuterol Sulfate XQP302(90Base) mcg/Act Aerosol 2 puff Inhaled Every 4 [...] Dexamethasone, Serum 404 ng/dL 11 1 Test(s) 900223-63-BQ Progesterone LCMS was developed and its performance characteristics determined by [facility]. It has not been cleared or approved by the Food and Drug Administration. 2 Prediabetes: 5.7 - 6 .4 Diabetes: >6.4 Glycemic control for adults with diabetes: <7.0 3 This test was develo ped and its performance characteristics determined by [employer]. It has not been cleared or approved [...] ped and its performance characteristics determined by [facility]. It has not been cleared or approved [...]
== END 2024-07-04 09:52 | disposition home or self-care (01) ==
LOC: HO.ENCR 09:34
PROVIDERS: PCP Nurse Practitioner Family; Visit Provider Internal Medicine Endocrinology, Diabetes & Metabolism
DX: E28.2 Polycystic ovarian syndrome (principal)
CPT/HCPCS: 99213

== ENCOUNTER 2024-08-01 10:08 | Outpatient (AMB) | payer OTHER, SELFPAY ==
--- NOTE | 2024-08-01 10:12 | MHC.OFFVISPS ---
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 Allergies dust mite Allergy (Severe, Uncoded 07/04/24 09:38) stuffy nose, cough Medication List - Last Reconciled 08/01/24 by Angi Cage APRN albuterol sulfate 90 mcg/actuation 2 puffs inhalation Q6H PRN benzonatate 100 mg PO TID PRN 10 days ipratropium bromide 2 sprays intranasal BID-TID PRN methylphenidate HCl ER (Concerta) 54 mg PO QAM spironolactone 25 mg PO DAILY tirzepatide (weight loss) (Zepbound) 5 mg (0.5 mL) subcut QWEEK HPI- Psychiatric Chief Complaint: f/u consultation HPI Narrative: pt reports she has been feeling down lately due to being too busy with family and social activities; she states she is an introvert and needs more quiet time. she also feels the concerta is not helping her ADHD and she is having trouble staying on a tasks and completing tasks ; she feels if her concentration and task completion were better then she would feel less down; she denies SI or HI. She is having some intermittent trouble sleeping; she would like t try an alternative ADHD med. Pt started vitamin D supplement Past Psychiatric History: outpt therapy and psychiatry at [facility] in the past Subjective Subjective Subjective Medication Compliance: Yes Side effects from medications: No Review of Systems Medical Review of Systems: unchanged Mental Status Exam Mental Status Exam Patient Appearance: Appropriate Patient Orientation: Person, Place, Time and Situation Level of Consciousness: Awake and Appropriate Patient Behavior: Appropriate and Cooperative Mood Description: Constricted and Sad Affect Description: Constricted and Sad Patient Cognition Impaired: No Ability to Follow Directions: Good Speech Pattern: Clear Memory Description: Intact Hallucinations: None Delusions: Not Present Thought Process: Intact Thought Content: positive for Intact Judgement: Good Assessment and Plan Assessment & Plan (1) ADHD (attention deficit hyperactivity disorder), inattentive type: Status: Acute Code(s): F90.0 - Attention-deficit hyperactivity disorder, predominantly inattentive type Plan stop concerta trial of adderall XR 20mg daily in am hydroxyzine 25mg at bedtime retru for follow up in 4 weeks Medications: New hydroxyzine HCl 25 mg PO BEDTIME PRN 30 tabs 1RF sleep dextroamphetamine-amphetamine 20 mg ER (Adderall XR) Partial Fill upon patient request. 20 mg PO QAM 30 caps 0RF Discontinued methylphenidate HCl ER (Concerta) Partial Fill upon patient request. Discontinued Reason: Doctor's Order 54 mg PO QAM 30 tabs 0RF Counseling and coordination of Care Pt. Self Management counseling: Maintenance-social rhythm, Mod caffeine/ETOH intake and Nutrition education and improvement Medication management counseling: Effectiveness, Side effects, Dosing range, Duration, Drug interaction and Adherence Diagnosis and Prognosis Counseling: Accuracy of diagnosis, Prognosis over time, Impact of diagnosis on life functions, Impact of family relationship, Problematic behaviors secondary to diagnosis and Adequacy of current interventions Details: I spent 35 minutes reviewing the record, seeing the patient and documenting in the medical record. Counseling provided to the patient/caregiver as outlined below. Addressed patient/caregiver concerns regarding current medication regime including effective adherence. Addressed patient/caregiver concerns regarding diagnosis and prognosis including accuracy of diagnosis, prognosis over time, impact of diagnosis. Addressed patient/caregiver concerns regarding impact of recent stressors. [facility] Medical History Uncontrolled hypertension Abnormal stress test Acid reflux Sinusitis ALIX (obstructive sleep apnea) Chronic rhinitis Atopic dermatitis Asthma Surgical History No pertinent past surgical history Family History Mother Hypertension Pre-diabetes Arthritis Father Hypertension Maternal Grandmother Stroke Maternal Grandfather Diabetes Alcoholism Social History Housing: House Alcohol intake: current Alcohol intake frequency: a few times a month Alcohol type: wine Patient Tobacco Use Status: Never used Tobacco e-Cigarette/Vaping Use: Never Used Second Hand Smoke Exposure: No service: No Current occupational status: unemployed Cognitive needs: No Hearing needs: No Vision needs: Yes Social History: grew up inlarge family - youngest of 7 children. lived with M & F works FT in [employer] at [employer]. Substance History: none Trauma History: none Coding Level of Care Code Est Pt Level 4 (97828) Diagnoses ADHD (attention deficit hyperactivity disorder), inattentive type F90.0
--- OUTSIDE RECORDS SUMMARY | 2024-08-01 10:35 | XMS_ITS | Data Portability ---
Author Organization [place] - [facility], Allergy Address [address] [address] Care Team Providers Care Structural Steel Painter Name Role Phone JAVIER DOYLE Primary Care Provider [phone] Assessment Encounter Date Assessment Date Assessment LastModified [...] (0.03 %) nasal spray 2023 [facility]/Pharmacy #[id number], [address] [facility], [place], [address], 14:40:39 Patient TargetsNo targets recorded. Patient InstructionsNo instructions recorded. Reason for Referral None Reported. Problems Name Problem SNOMED Code Status Onset Date Resolution Date Notes Provider Name and Address Organization Details Recorded Time Vasomotor rhinitis 0952283 Active SHIRA VAZQUEZ MD [address] [place],[address], [place], [address] , [facility] 4 14:36:03 Snoring 08798468 Active 024 SHIRA VAZQUEZ MD [address], [place], [address] , [facility] 4 14:36:11 Problem Notes None recorded. Procedures Surgical History Date Name Laterality Status Provider Name and Address Organization Details Recorded Time 4 JMSNasal/Sinus Endoscopy completed SHIRA JO MD [address] [facility] [place],[facility] [address], [place], [address], [facility] 01/27/2024 14:37:32 Imaging Results None recorded. Procedure [...] Updated DateTime 01/27/2024 165.1 cm 44.9 kg/m2 778249.94 g Efren Marvin [place] - [facility] 01/27/2024 14:25:25 Social History None recorded. Functional Status None recorded. Mental Status None recorded. Family History Nothing Reported. Medical History Condition Response Anxiety Gynecological HistoryNo gynecological history recorded. Obstetrics History GPAL:G 0 P 0 0 0 0 Past Encounters Encounter ID Performer Location Encounter Start Date Encounter Closed Date Diagnosis/Indication Diagnosis SNOMED-CT Code Diagnosis ICD10 Code Diagnosis Note [id number] SHIRA VAZQUEZ MD [facility] [address] [place] [address] 01/27/2024 14:04:46 01/27/2024 14:41:43 Vasomotor rhinitis 3813732 J30.0 Snoring 75337155 R06.83 Given PSG reportedly negative. She is being evaluated for medical treatment of obesity Body mass index 40+ - severely obese 831501797 Z68.42 Health Concerns Section Related Observation LastModified by Organization Detai ls LastModified Time None Recorded Concern Status LastModified by Organization Details LastModified Time None Recorded Advance Directives Directive None Recorded Payers Insurance Date Sequence Insurance Name Policy Number Policy Damon Covered Member ID Damon Member ID Guarantor Name 07/15/2024 1 [employer] [facility] ([place]) [id number] Angelita Wagoner [id number] Micaela Wagoner Notes Date Note Type Note Provider Name and Address Organization Details Recorded Time 01/27/2024 text/html 23-year-old devan le seen for an opinion regarding nasal congestion refractory to fluticasone nasal spray. She notes snoring but had a negative sleep study by report. Had sinus x-rays and seen for an opinion regarding possible septal deviation. She notes mild dust mite allergy SHIRA JO MD [address] [place] [address], [phone], [facility] - [facility] 01/27/2024 14:44:18 OBGyn Episode No OBEpisode recorded.
--- OUTSIDE RECORDS SUMMARY | 2024-08-01 10:35 | XMS_ITS | Continuity of Care Document ---
Author Organization [facility] [address] [facility] [address] [place] [address] Phone [phone] Care Team Providers Care Security Advisor Name Role Phone Beverly Cadena Care Team Information Carton Filling Machine Operator [phone] Problems Active Problems Provider Date Polycystic ovary [...] 2ml E66.9 Meseret Montero M.D. 09/30/2023 Z68.41 Mxjwbcqkdcbzau28vg Tablets Take 1 tablet by mouth once a day 90tabs Meseret Montero M.D. 09/02/2023 Jugmsdmuvobms0ks Tablets 1 tablet by poly th at 11 pm 1tafrank Montero M.D. 09/02/2023 Albuterol Sulfate XFI272(90Base) mcg/Act Aerosol 2 puff Inhaled Every 4 [...] Dexamethasone, Serum 404 ng/dL 11 1 Test(s) 768858-24-UN Progesterone LCMS was developed and its performance characteristics determined by [facility]. It has not been cleared or approved by the Food and Drug Administration. 2 Prediabetes: 5.7 - 6 .4 Diabetes: >6.4 Glycemic control for adults with diabetes: <7.0 3 This test was develo ped and its performance characteristics determined by [employer]. It has not been cleared or approved [...] ped and its performance characteristics determined by [facility]. It has not been cleared or approved [...]
== END 2024-08-01 10:32 | disposition home or self-care (01) ==
LOC: HO.HOP 10:08
PROVIDERS: PCP Nurse Practitioner Family; Visit Provider Clinical Nurse Specialist Psychiatric/Mental Health
DX: F90.0 Attention-deficit hyperactivity disorder, predominantly inattentive type (principal)
CPT/HCPCS: 99214

== ENCOUNTER → 2024-08-01 10:08 | Outpatient (BNVA) | payer OTHER, SELFPAY | PROVIDERS: PCP Nurse Practitioner Family; Visit Provider Clinical Nurse Specialist Psychiatric/Mental Health ==

== ENCOUNTER 2024-08-02 09:31 | Outpatient (AMB) | payer OTHER, SELFPAY ==
--- NOTE | 2024-08-02 07:41 | A.OFFVIS_ITS ---
Vital Signs 08/02/24 09:41 Height 5 ft 5 in Weight 244 lb 11.41 oz BMI 40.7 BP 120/76 Blood Pressure Location Rt brachial Position Sitting Pulse 79 Pulse Source Pulse Oximeter Pulse Oximetry (%) 97 Oxygen Delivery Method Room Air Intake Visit Reasons: Obesity, PCOS Intake Note: Patient present today for Obesity & PCOS follow-up, patient last seen by DR. Lavelle Garcai MD: Methane Gas Collection System Operator Required: No Accompanied by: Self / Same As Patient Allergies dust mite Allergy (Severe, Uncoded 07/04/24 09:38) stuffy nose, cough HPI Comments Details: The patient is a 24-year-old female presenting with weight management and contraceptive planning due to PCOS. With PCOS, the patient faces challenges of hirsutism and obesity. She started on Zepbound 2.5 mg weekly midmarch to address weight concerns. The initial dose brought about mild nausea and dizziness, but no other adverse effects have been observed. The dose was increased to 5mg one month ago. Weight: 14 pounds over the past month 08/02/24 244 06/21/24 258 263 prior to starting medication Has seen nutrition in the past feels she is knowledgeable on what to eat in his made significant change both the quality of food she is eating in the portions. She has multiple relatives with type 2 diabetes. 24 hour recall: she is focusing on increasing fiber and protein breakfast: salad with a boiled egg or oats, maltese yogurt with berries lunch: salad with a protein grilled protein added supper: same occasionally pasta side has added veg to her supper Exericse: walks 8000 steps per day on average if she treadmills this will be higher pilates once per week - Spironolactone 25 mg daily, for the management of hirsutism, prescribed by a different physician. She has an appointment to have an IUD placed in August. She is aware that is up lb decreases the effectiveness of control pill and she would use a backup method such as condoms. [facility] Medical History Uncontrolled hypertension Abnormal stress test Acid reflux Sinusitis ALIX (obstructive sleep apnea) Chronic rhinitis Atopic dermatitis Asthma Surgical History No pertinent past surgical history Family History Mother Hypertension Pre-diabetes Arthritis Father Hypertension Maternal Grandmother Stroke Maternal Grandfather Diabetes Alcoholism Social History Housing: House Alcohol intake: current Alcohol intake frequency: a few times a month Alcohol type: wine Patient Tobacco Use Status: Never used Tobacco e-Cigarette/Vaping Use: Never Used Second Hand Smoke Exposure: No service: No Current occupational status: unemployed Cognitive needs: No Hearing needs: No Vision needs: Yes Female Reproductive History Menstrual Age of Menarche: 9 Physical Exam Vital Signs: Last Vital Signs Pulse 79 08/02/24 09:41 BP 120/76 08/02/24 09:41 Pulse Ox 97 08/02/24 09:41 Oxygen Delivery Method Room Air 08/02/24 09:41 BMI result Body Mass Index 40.7 Const Other: Absence of Cushingoid features. Absence of acromegalic features. Neck exam reveals nl size thyroid about 15 gms. No thyroid nodules palpable. Heart S1 S2, Reg R/R. No M/R G. Skin exam reveals absence of vitiligo or acanthosis nigricans. no edema Assessment & Plan Assessment & Plan (1) Morbid obesity with BMI of 40.0-44.9, adult: Code(s): E66.01 - Morbid (severe) obesity due to excess calories; Z68.41 - Body mass index [BMI] 40.0-44.9, adult Category: Medical Plan: The patient has a 24-year-old female with obesity and PCOS who is currently on Zepbound for several months. She has done well on this and has lost 19 lb. She will continues up on 2.5 weekly through the [facility] program. Follow up with Dr. Garcia in 2 months She would was advised to continue her daily walking and to consider increasing the frequency of Pilates to 3 times per week as opposed to the 1 she is currently doing. Encouraged to continue healthy diet. She was recommended to purchased the learn manual for weight control which has a 12 chapter self directed steady guide for weight reduction. Coding Level of Care Code Est Pt Level 3 (61533) Complex EM visit Add On G2211 Diagnoses Morbid obesity with BMI of 40.0-44.9, adult E66.01; Z68.41 Time Spent (min) 30 Comment Time spent reviewing labs/provider notes, face to face, chart doc
[2024-08-02 09:41] VITALS: BP 120/76; PULSE 79; O2SAT 97; BMI 40.7
--- OUTSIDE RECORDS SUMMARY | 2024-08-02 10:09 | XMS_ITS | Continuity of Care Document ---
Author Organization [facility] [address] [facility] [address] [place] [address] Phone [phone] Care Team Providers Care Corn Picker Name Role Phone Beverly Cadena Care Team Information Commercial Floor Covering Installer [phone] Problems Active Problems Provider Date Polycystic ovary [...] 2ml E66.9 Meseret Montero M.D. 09/30/2023 Z68.41 Elxgqlhbbduwgj97ky Tablets Take 1 tablet by mouth once a day 90tabs Meseret Montero M.D. 09/02/2023 Zaisathbkpmqs1do Tablets 1 tablet by poly th at 11 pm 1tafrank Montero M.D. 09/02/2023 Albuterol Sulfate RND459(90Base) mcg/Act Aerosol 2 puff Inhaled Every 4 [...] Dexamethasone, Serum 404 ng/dL 11 1 Test(s) 087499-50-W[place] Progesterone LCMS was developed and its performance characteristics determined by [facility]. It has not been cleared or approved by the Food and Drug Administration. 2 Prediabetes: 5.7 - 6 .4 Diabetes: >6.4 Glycemic control for adults with diabetes: <7.0 3 This test was develo ped and its performance characteristics determined by [employer]. It has not been cleared or approved [...] ped and its performance characteristics determined by [facility]. It has not been cleared or approved [...]
== END 2024-08-02 09:58 | disposition home or self-care (01) ==
LOC: HO.ENCR 09:32
PROVIDERS: PCP Nurse Practitioner Family; Visit Provider Nurse Practitioner Adult Health
DX: E66.01 Morbid (severe) obesity due to excess calories (principal); Z68.41 Body mass index [BMI] 40.0-44.9, adult
CPT/HCPCS: 99213

== ENCOUNTER → 2024-08-02 09:31 | Outpatient (BNVA) | payer OTHER, SELFPAY | PROVIDERS: PCP Nurse Practitioner Family; Visit Provider Nurse Practitioner Adult Health ==

== ENCOUNTER 2024-09-05 10:36 | Outpatient (AMB) | payer OTHER, SELFPAY ==
--- NOTE | 2024-09-05 10:39 | A.OFFPSYCH_ITS ---
Intake Intake Visit Reasons: f/u consultation Behavioral Geneticist Required: No Allergies dust mite Allergy (Severe, Uncoded 07/04/24 09:38) stuffy nose, cough Medication List - Last Reconciled 09/05/24 by Angi Cage APRN albuterol sulfate 90 mcg/actuation 2 puffs inhalation Q6H PRN benzonatate 100 mg PO TID PRN 10 days dextroamphetamine-amphetamine 25 mg ER (Adderall XR) 25 mg PO QAM hydroxyzine HCl 25 mg PO BEDTIME 90 days ipratropium bromide 2 sprays intranasal BID-TID PRN spironolactone 25 mg PO DAILY tirzepatide (weight loss) (Zepbound) 5 mg (0.5 mL) subcut QWEEK HPI- Psychiatric Chief Complaint: f/u consultation HPI Narrative: Pt here for follow up on ADHD. Pt started addrrall XR 25 mg on 08/30. pt reports no side effects but she is not sure if its helping more yet. She struggles with overstimulaton at work and home; she talked about many unfinished projects since she was a child; this makes her sad and she is critical of self; sheloses interest inactivities/projects easily. the hydroxyzine 12.5-25mg made her too tired the next day so she stopped it. She denies SI or HI. Past Psychiatric History: outpt therapy and psychiatry at [facility] in the past Subjective Subjective Subjective Medication Compliance: Yes Side effects from medications: No Review of Systems Medical Review of Systems: unchanged Mental Status Exam Mental Status Exam Patient Appearance: Well Grooomed and Appropriate Patient Orientation: Person, Place, Time and Situation Level of Consciousness: Awake, Appropriate and Alert Patient Behavior: Appropriate, Cooperative and Good Eye Contact Mood Description: Sad Affect Description: Sad Patient Cognition Impaired: No Ability to Follow Directions: Excellent Speech Pattern: Clear, Appropriate and Coherent Memory Description: Intact Hallucinations: None Delusions: Not Present Thought Process: Intact Thought Content: positive for Intact and positive for Goal Oriented Judgement: Good Assessment and Plan Assessment & Plan (1) ADHD (attention deficit hyperactivity disorder), inattentive type: Status: Acute Code(s): F90.0 - Attention-deficit hyperactivity disorder, predominantly inattentive type Plan continue adderall xr 25mg consider increase to 30mg if needed consider IR dose for evening if needed Medications: Discontinued hydroxyzine HCl Discontinued Reason: Doctor's Order 25 mg PO BEDTIME 90 days 90 tabs 1RF for insomnia Counseling and coordination of Care Pt. Self Management counseling: Maintenance-social rhythm, Mod caffeine/ETOH intake, Nutrition education and improvement, Sleep hygiene, Behavior activation, General coping skills and Problem solving Medication management counseling: Effectiveness, Side effects, Dosing range, Duration, Drug interaction and Adherence Diagnosis and Prognosis Counseling: Accuracy of diagnosis, Prognosis over time, Impact of diagnosis on life functions, Impact of family relationship, Problematic behaviors secondary to diagnosis and Adequacy of current interventions Details: I spent [] minutes reviewing the record, seeing the patient and documenting in the medical record. Counseling provided to the patient/caregiver as outlined below. Addressed patient/caregiver concerns regarding current medication regime including effective adherence. Addressed patient/caregiver concerns regarding diagnosis and prognosis including accuracy of diagnosis, prognosis over time, impact of diagnosis. Addressed patient/caregiver concerns regarding impact of recent stressors. REPLACED BY [facility] Medical History Uncontrolled hypertension Abnormal stress test Acid reflux Sinusitis ALIX (obstructive sleep apnea) Chronic rhinitis Atopic dermatitis Asthma Surgical History No pertinent past surgical history Family History Mother Hypertension Pre-diabetes Arthritis Father Hypertension Maternal Grandmother Stroke Maternal Grandfather Diabetes Alcoholism Social History Housing: House Alcohol intake: current Alcohol intake frequency: a few times a month Alcohol type: wine Patient Tobacco Use Status: Never used Tobacco e-Cigarette/Vaping Use: Never Used Second Hand Smoke Exposure: No service: No Current occupational status: unemployed Cognitive needs: No Hearing needs: No Vision needs: Yes Social History: grew up inlarge family - youngest of 7 children. lived with M & F works FT in [employer] Substance History: none Trauma History: none Coding Level of Care Code Est Pt Level 4 (79105) Diagnoses ADHD (attention deficit hyperactivity disorder), inattentive type F90.0
== END 2024-09-05 11:00 | disposition home or self-care (01) ==
LOC: HO.HOP 10:36
PROVIDERS: PCP Nurse Practitioner Family; Visit Provider Clinical Nurse Specialist Psychiatric/Mental Health
DX: F90.0 Attention-deficit hyperactivity disorder, predominantly inattentive type (principal)
CPT/HCPCS: 99214

== ENCOUNTER 2024-10-10 10:38 | Outpatient (AMB) | payer OTHER, SELFPAY ==
--- NOTE | 2024-10-10 10:42 | MHC.OFFVISPS ---
Intake Intake Visit Reasons: f/u consultation Director Of Land Required: No Allergies dust mite Allergy (Severe, Uncoded 07/04/24 09:38) stuffy nose, cough Medication List - Last Reconciled 10/10/24 by Angi Cage APRN albuterol sulfate 90 mcg/actuation 2 puffs inhalation Q6H PRN benzonatate 100 mg PO TID PRN 10 days dextroamphetamine-amphetamine 30 mg ER (Adderall XR) 30 mg PO QAM dextroamphetamine-amphetamine 5 mg (Adderall) 5 mg orally Take 1/2 to 1 tablet 7 hours after taking the extended release adderall; Partial Fill upon patient request. ipratropium bromide 2 sprays intranasal BID-TID PRN spironolactone 25 mg PO DAILY tirzepatide (weight loss) (Zepbound) 5 mg (0.5 mL) subcut QWEEK HPI- Psychiatric Chief Complaint: f/u consultation HPI Narrative: Pt here for follow up on ADHD. Pt reports adderall doesn't seem to be helping at all; she feels a let down or crash afet it wears off but little to no benefit. She struggles with over-stimulaton at work and home; she talked about many unfinished projects since she was a child; this makes her sad and she is critical of self; she loses interest inactivities/projects easily. She is not sleeping well again. she denies depression or significnt andxiety.. She denies SI or HI. Past Psychiatric History: outpt therapy and psychiatry at [facility] in the past Subjective Subjective Subjective Medication Compliance: Yes Side effects from medications: No Review of Systems Medical Review of Systems: unchanged Mental Status Exam Mental Status Exam Patient Appearance: Well Grooomed and Appropriate Patient Orientation: Person, Place, Time and Situation Level of Consciousness: Awake, Appropriate and Alert Patient Behavior: Appropriate, Cooperative and Good Eye Contact Mood Description: Sad Affect Description: Sad Patient Cognition Impaired: No Ability to Follow Directions: Excellent Speech Pattern: Clear, Appropriate and Coherent Memory Description: Intact Hallucinations: None Delusions: Not Present Thought Process: Intact Thought Content: positive for Intact and positive for Goal Oriented Judgement: Good Assessment and Plan Assessment & Plan (1) ADHD (attention deficit hyperactivity disorder), inattentive type: Status: Acute Code(s): F90.0 - Attention-deficit hyperactivity disorder, predominantly inattentive type Plan stop adderall trial of focalin return in 3 weeks Medications: New dexmethylphenidate ER (Focalin XR) Partial Fill upon patient request. 10 mg PO DAILY 30 caps 0RF eszopiclone (Lunesta) 1 mg PO BEDTIME PRN 30 tabs 0RF insomnia Discontinued dextroamphetamine-amphetamine 30 mg ER (Adderall XR) Partial Fill upon patient request. Discontinued Reason: Doctor's Order 30 mg PO QAM 30 caps 0RF F90.0 - Attention-deficit hyperactivity disorder, predominantly inattentive type dextroamphetamine-amphetamine 5 mg (Adderall) Discontinued Reason: Doctor's Order 5 mg orally Take 1/2 to 1 tablet 7 hours after taking the extended release adderall; Partial Fill upon patient request. 20 tabs 0RF Counseling and coordination of Care Pt. Self Management counseling: Maintenance-social rhythm, Mod caffeine/ETOH intake, Nutrition education and improvement, Sleep hygiene, Behavior activation, General coping skills and Problem solving Medication management counseling: Effectiveness, Side effects, Dosing range, Duration, Drug interaction and Adherence Diagnosis and Prognosis Counseling: Accuracy of diagnosis, Prognosis over time, Impact of diagnosis on life functions, Impact of family relationship, Problematic behaviors secondary to diagnosis and Adequacy of current interventions Details: I spent 34 minutes reviewing the record, seeing the patient and documenting in the medical record. Counseling provided to the patient/caregiver as outlined below. Addressed patient/caregiver concerns regarding current medication regime including effective adherence. Addressed patient/caregiver concerns regarding diagnosis and prognosis including accuracy of diagnosis, prognosis over time, impact of diagnosis. Addressed patient/caregiver concerns regarding impact of recent stressors. [facility] Medical History Uncontrolled hypertension Abnormal stress test Acid reflux Sinusitis ALIX (obstructive sleep apnea) Chronic rhinitis Atopic dermatitis Asthma Surgical History No pertinent past surgical history Family History Mother Hypertension Pre-diabetes Arthritis Father Hypertension Maternal Grandmother Stroke Maternal Grandfather Diabetes Alcoholism Social History Housing: House Alcohol intake: current Alcohol intake frequency: a few times a month Alcohol type: wine Patient Tobacco Use Status: Never used Tobacco e-Cigarette/Vaping Use: Never Used Second Hand Smoke Exposure: No service: No Current occupational status: unemployed Cognitive needs: No Hearing needs: No Vision needs: Yes Social History: grew up inlarge family - youngest of 7 children. lived with M & F works FT in [employer] at [employer] Substance History: none Trauma History: none Coding Level of Care Code Est Pt Level 4 (28756) Diagnoses ADHD (attention deficit hyperactivity disorder), inattentive type F90.0
--- OUTSIDE RECORDS SUMMARY | 2024-10-10 11:41 | XMS_ITS | Data Portability ---
Author Organization [place] - [facility], Allergy Address [address] [address] Care Team Providers Care Global Risk Management Director Name Role Phone JAVIER DOYLE Primary Care [...] can consider a CT of the sinuses jschreibstein Not available 01/27/2024 14:40:49 Plan of Treatment Reminders Order Date Submit Date Provider Last Modified By Organization Details Last Modified Time Details Appointments None recorded. Lab None recorded. Referral None recorded. Procedures None recorded. Surgeries None recorded. Imaging None recorded. Medication Orders ipratropium bromide 21 mcg (0.03 %) nasal spray 2023 024 [facility][id number], [address] [facility], [place], [address], 14:40:39 Patient TargetsNo targets recorded. Patient InstructionsNo instructions recorded. Reason for Referral None Reported. Problems Name Problem SNOMED Code Status Onset Date Resolution Date Notes Provider Name and Address Organization Details Recorded Time Vasomotor rhinitis 1640902 Active SHIRA VAZQUEZ MD [address] [facility] [place] [address], [facility] [place], [address] , [facility] 4 14:36:03 Snoring 44470869 Active SHIRA VAZQUEZ MD [address] [facility] [place],[facility] 100, [facility], [address] , [facility] 4 14:36:11 Problem Notes None recorded. Procedures Surgical History Date Name Laterality Status Provider Name and Address Organization Details Recorded Time 4 JMSNasal/Sinus Endoscopy completed SHIRA JO MD 100 [facility] 100, [place], [address], [facility] 01/27/2024 14:37:32 Imaging Results None recorded. [...] Updated DateTime 01/27/2024 165.1 cm 44.9 kg/m2 237269.94 g Efren Wong [place] - [facility] 01/27/2024 14:25:25 Social History None recorded. Functional Status None recorded. Mental Status None recorded. Family History Nothing Reported. Medical History Condition Response Anxiety Gynecological HistoryNo gynecological history recorded. Obstetrics History GPAL:G 0 P 0 0 0 0 Past Encounters Encounter ID Performer Location Encounter Start Date Encounter Closed Date Diagnosis/Indication Diagnosis SNOMED-CT Code Diagnosis ICD10 Code Diagnosis Note [id number] SHIRA VAZQUEZ MD [facility] [address] [address] 01/27/2024 14:04:46 01/27/2024 14:41:43 Vasomotor rhinitis 8701465 J30.0 Snoring 98643947 R06.83 Given PSG reportedly negative. She is being evaluated for medical treatment of obesity Body mass index 40+ - severely obese 665980918 Z68.42 Health Concerns Section Related Observation LastModified by Organization Detai ls LastModified Time None Recorded Concern Status LastModified by Organization Details LastModified Time None Recorded Advance Directives Directive None Recorded Payers Insurance Date Sequence Insurance Name Policy Number Policy Damon Covered Member ID Damon Member ID Guarantor Name 07/15/2024 1 [employer] [facility] ([id number]) [id number] Angelita Wagoner [id number] Micaela Wagoner Notes Date Note Type [...] dust mite allergy SHIRA JO MD [address], [address], [place] - [facility] 01/27/2024 14:44:18 OBGyn Episode No OBEpisode recorded.
--- OUTSIDE RECORDS SUMMARY | 2024-10-10 11:41 | XMS_ITS | Continuity of Care Document ---
Author Organization [facility] [address] [facility] [address] [place] [address] Phone [phone] Care Team Providers Care Care Consultant Name Role Phone Beverly Cadena Care Team Information Manager Energy [phone] Problems Active Problems Provider Date Polycystic ovary syndrome EVERARDO Swartz Ons et: 09/02/2023 Essential hypertension EVERARDO Swartz Onset: 09/02/2023 Obstructive sleep apnea syndrome EVERARDO Swartz Onset: 09/02/2023 Social History Type Date Description Comments Sex Female Sex Unknown Tobacco Use Start: Unknown Never Smoked Cigarettes ETOH Use Occasionally consumes alcoho l Allergies and adverse reactions Description No Known Drug Allergies Medications Active Medications SIG Qnty Indications Ordering Provider Date Wegovy0.25mg/0.5ML Solution Auto-Inject Inject 0.25 mg weekly for 4 weeks dx:E66.9 2ml E66.9 Meseret Montero M.D. 09/30/2023 Z68.41 Iuqjzxpcblockt13rq Tablets Take 1 tablet by mouth once a day 90tabs Meseret Montero M.D. 09/02/2023 Tjuecgyswnuvc9lf Tablets 1 tablet by poly th at 11 pm 1dolly Montero M.D. 09/02/2023 Albuterol Sulfate ULI445(90Base) mcg/Act Aerosol 2 puff Inhaled Every 4 [...] High 6 Dhea-Sulfate 09/09/2023 [facility] Dhea-Sulfate 168.0 g/dL 110.0-431 .7 FSH And LH 09/09/2023 [facility] LH 7.6 mIU/mL 7 FSH 5.6 mIU/mL 8 Cortisol 09/09/2023 [facility] Cortisol 0.4 g/dL Low 6.2-19.4 9 17-Oh Progesterone LCMS 09/09/2023 [facility] 17-Oh Progesterone LCMS 21 ng/dL 10 Dexamethasone, Serum 09/09/2023 [facility] Dexamethasone, Serum 404 ng/dL 11 1 Test(s) 261597-00-YJ Progesterone LCMS was developed and its performance characteristics determined by [facility]. It has not been cleared or approved by the Food and Drug Administration. 2 Prediabetes: 5.7 - 6 .4 Diabetes: >6.4 Glycemic control for adults with diabetes: <7.0 3 This test was develo ped and its performance characteristics determined by [employer]. It has not been cleared or approved [...]
== END 2024-10-10 10:55 | disposition home or self-care (01) ==
LOC: HO.HOP 10:38
PROVIDERS: PCP Nurse Practitioner Family; Visit Provider Clinical Nurse Specialist Psychiatric/Mental Health
DX: F90.0 Attention-deficit hyperactivity disorder, predominantly inattentive type (principal)
CPT/HCPCS: 99214

== ENCOUNTER 2024-10-26 09:34 | Outpatient (AMB) | payer OTHER, SELFPAY ==
--- NOTE | 2024-10-26 09:35 | MHC.OFFVIS ---
Vital Signs 10/26/24 09:41 Height 5 ft 5 in Weight 226 lb 10.163 oz BMI 37.7 BP 104/72 Blood Pressure Location Rt brachial Position Sitting Pulse 89 Pulse Source Pulse Oximeter Pulse Oximetry (%) 98 Oxygen Delivery Method Room Air Intake Visit Reasons: Obesity, PCOS Intake Note: Patient present today for Obesity and PCOS follow up. Final Cigar And Box Examiner Required: No Accompanied by: Self / Same As Patient Allergies dust mite Allergy (Severe, Uncoded 10/26/24 09:41) stuffy nose, cough Medication List - Last Reconciled 10/26/24 by Lavelle Garcia MD albuterol sulfate 90 mcg/actuation 2 puffs inhalation Q6H PRN benzonatate 100 mg PO TID PRN 10 days dexmethylphenidate ER (Focalin XR) 10 mg PO DAILY eszopiclone (Lunesta) 1 mg PO BEDTIME PRN ipratropium bromide 2 sprays intranasal BID-TID PRN spironolactone 25 mg PO DAILY tirzepatide (weight loss) (Zepbound) 5 mg (0.5 mL) subcut QWEEK HPI Comments Details: 24 YO Female who is seen in consultation at the request of her PCP for PCOS/Amenorrhea.Saw endo at [facility] . No workup available Menarche was age 9 . Menses have been irregular. at age 16 skips menses 1-2 mos OCP use: placed on non-estrogen BCP but caused wt gain. Metformin use: No Weight gain: wt is steady but no gain recently Hirsutism/hyperandrogenism: On sprronolactone with improvement in facial hair growth Trying to conceive/clomiphene: No Ovarian U/S: Yes 2-3 yrs ago T2DM or acanthosis: grandmother and uncle has Type 2 DM and mom is Type 2 DM +snoring but no sleep apnea diagnosed sees vulcanizer here [facility]: On Zepbound.. Tolerating nicely. Getting IUD . Sprionolactone helping , prescribed by another physician The patient is a 24-year-old female presenting with weight management and contraceptive planning due to PCOS. With PCOS, the patient faces challenges of hirsutism and obesity, currently weighing 255 lbs, a slight decrease since recording 258 lbs last month. She started on Zepbound one month ago to address weight concerns. The initial dose brought about mild nausea and dizziness, but no other adverse effects have been observed. The patient wishes for a dosage increase to enhance weight loss effects, monitored via the [employer] Direct pathway. Regarding contraceptive measures, she has not used control pills since starting spironolactone, which was prescribed to help with hirsutism. With concerns over medication consistency due to her irregular work schedule, she leans toward an IUD. However, the potential of estrogen-containing oral contraceptives to diminish hirsutism and acne increase their attractiveness, even if an IUD affords a non-estrogen avenue for preventing . The patient's therapeutic regimen includes spironolactone 25 mg per day, though informed that a higher dosage often garners clinical results. Balancing reliable contraception to avoid unintended while using spironolactone will remain pivotal. - Zepbound, 5 mg lost on additional 18 lb since last visit - Spironolactone 25 mg daily, for the management of hirsutism, prescribed by a different physician. The patient is a 24-year-old female presenting for management of irregular menstrual cycles and weight loss. The patient reports irregular menstrual cycles, with periods that have shortened in length and are accompanied by nausea. The cycles are not consistently timed each month, indicating irregularity. There was a previous discussion about starting an estrogen-containing control pill to help regulate the cycles, but the patient has not yet been able to pursue this due to her healthcare provider's unavailability. The patient has experienced significant weight loss, having lost an additional 18 pounds since the last visit, with her lowest recorded weight being 223 pounds. She is currently taking Zepbound 5 mg, which she tolerates well, and attributes her weight loss to this medication. The patient is considering adjusting her exercise routine to overcome a potential weight loss plateau. The patient is on spironolactone, which has helped manage her hirsutism, and she reports that hair growth has lessened and is currently tolerable. She is aware of the potential risks of spironolactone during and is cautious about its use. - Spironolactone: Used for hirsutism management, with awareness of risks - Zepbound 5 mg: Used for weight loss, well tolerated [facility] Medical History Uncontrolled hypertension Abnormal stress test Acid reflux Sinusitis ALIX (obstructive sleep apnea) Chronic rhinitis Atopic dermatitis Asthma Surgical History No pertinent past surgical history Family History Mother Hypertension Pre-diabetes Arthritis Father Hypertension Maternal Grandmother Stroke Maternal Grandfather Diabetes Alcoholism Social History Housing: House Alcohol intake: current Alcohol intake frequency: a few times a month Alcohol type: wine Patient Tobacco Use Status: Never used Tobacco e-Cigarette/Vaping Use: Never Used Second Hand Smoke Exposure: No service: No Current occupational status: unemployed Cognitive needs: No Hearing needs: No Vision needs: Yes Female Reproductive History Menstrual Age of Menarche: 9 Physical Exam Vital Signs: BMI result Body Mass Index 37.7 Assessment & Plan Assessment & Plan (1) PCOS (polycystic ovarian syndrome): Code(s): E28.2 - Polycystic ovarian syndrome Category: Medical Plan: This is a 24-year-old white female with a history of hyperandrogenism due to PCOS. 1. Obesity due to Polycystic Ovary Syndrome The patient has lost additional 18 pounds since starting Zepbound with minimal side effects. , contributing positively to her PCOS management. 2. Hirsutism associated with PCOS The patient is on spironolactone 25 mg daily, prescribed by another physician. While some improvement is reported, I emphasized the need for concurrent contraception to prevent potential teratogenic effects. The patient may consider increasing the dose for better treatment outcomes after establishing reliable contraception. 1. Irregular menstrual cycles The patient experiences irregular menstrual cycles with shortened length and nausea. An estrogen-containing control pill or IUD was discussed as a potential intervention to regulate cycles and manage associated symptoms, but the patient has not yet pursued this option due to her healthcare provider's unavailability. 2. Weight loss The patient has lost 18 pounds since the last visit, attributed to Zepbound 5 mg, which she tolerates well. She is considering modifying her exercise routine to address a potential weight loss plateau. The option to increase Zepbound dosage was discussed if a plateau is confirmed. 3. Hirsutism The patient is on spironolactone, which has effectively managed her hirsutism, with reduced hair growth reported. She is aware of the potential risks of spironolactone during and remains cautious about its use. The patient had an opportunity to ask questions regarding treatment plan. The patient expressed understanding and agreement with the above treatment plan. . Patient was informed and verbally consented to the use of an ambient scribe for clinic note documentation during this visit. I discussed with the patient the efficacy and side effects of Zepbound in managing obesity linked to PCOS and approved a dosage increase due to demonstrated tolerance. Emphasizing the importance of reliable contraception due to spironolactone's teratogenic risk, an IUD was chosen suited to the patient?s scheduling needs. An increase to spironolactone's therapeutic levels could be considered later, provided contraception ensures safety. - During the visit, we discussed the management of irregular menstrual cycles, including the potential use of an estrogen-containing control pill to regulate cycles and manage symptoms. We also reviewed the patient's weight loss progress with Zepbound and considered the possibility of adjusting her exercise routine or increasing the medication dosage if a plateau occurs. The patient is aware of the risks associated with spironolactone during and is cautious about its use. Follow-up was planned for six months to reassess her progress and management plan. - Continue current medications as prescribed. - Consider modifying exercise routine to address potential weight loss plateau. - Follow up in six months for reassessment. The patient had an opportunity to ask questions regarding treatment plan. The patient expressed understanding and agreement with the above treatment plan. Patient was informed and verbally consented to the use of an ambient scribe for clinic note documentation during this visit. Coding Level of Care Code Est Pt Level 3 (82401) Diagnoses PCOS (polycystic ovarian syndrome) E28.2
[2024-10-26 09:41] VITALS: BP 104/72; PULSE 89; O2SAT 98; BMI 37.7
--- OUTSIDE RECORDS SUMMARY | 2024-10-26 09:57 | XMS_ITS | Continuity of Care Document ---
Author Organization [facility] [address] [place] [address] Phone [phone] Care Team Providers Care Ibm Mainframe Systems Programmer Name Role Phone Beverly Cadena Care Team Information Actuarial Technician [phone] Problems Active Problems Provider Date Polycystic ovary [...] 2ml E66.9 Meseret Montero M.D. 09/30/2023 Z68.41 Bbjatqlxeacsyz40ym Tablets Take 1 tablet by mouth once a day 90tabs Meseret Montero M.D. 09/02/2023 Okthsnythobip0vu Tablets 1 tablet by poly th at 11 pm 1dolly Montero M.D. 09/02/2023 Albuterol Sulfate OJK154(90Base) mcg/Act Aerosol 2 puff Inhaled Every 4 [...] Dexamethasone, Serum 404 ng/dL 11 1 Test(s) 176917-32-UZ Progesterone LCMS was developed and its performance characteristics determined by [facility]. It has not been cleared or approved by the Food and Drug Administration. 2 Prediabetes: 5.7 - 6 .4 Diabetes: >6.4 Glycemic control for adults with diabetes: <7.0 3 This test was develo ped and its performance characteristics determined by [employer]. It has not been cleared or approved [...]
== END 2024-10-26 09:55 | disposition home or self-care (01) ==
LOC: HO.ENCR 09:35
PROVIDERS: PCP Nurse Practitioner Family; Visit Provider Internal Medicine Endocrinology, Diabetes & Metabolism
DX: E28.2 Polycystic ovarian syndrome (principal)
CPT/HCPCS: 99213

== ENCOUNTER 2024-11-01 10:40 | Outpatient (AMB) | payer OTHER, SELFPAY ==
--- NOTE | 2024-11-01 10:45 | A.OFFPSYCH_ITS ---
Intake Intake Visit Reasons: f/u consultation Cotton Program Technician Required: No Allergies dust mite Allergy (Severe, Uncoded 10/26/24 09:41) stuffy nose, cough Medication List - Last Reconciled 11/01/24 by Angi Cage APRN albuterol sulfate 90 mcg/actuation 2 puffs inhalation Q6H PRN benzonatate 100 mg PO TID PRN 10 days dexmethylphenidate ER (Focalin XR) 10 mg PO DAILY eszopiclone (Lunesta) 1 mg PO BEDTIME PRN ipratropium bromide 2 sprays intranasal BID-TID PRN spironolactone 25 mg PO DAILY tirzepatide (weight loss) (Zepbound) 5 mg (0.5 mL) subcut QWEEK HPI- Psychiatric Chief Complaint: f/u consultation HPI Narrative: Pt here for follow up on ADHD. Pt feeling very frustrated with medications as they are not helping her ADHD symptoms; she reports trouble with attention, focus, forgetfulness, motivation, inability to complete complex projects. It is efffecting her home and work life as well as her self esteem. She is sleeping better; Her PHQ9=6 and her GAD7=2. She struggles with over-stimulation at work and home; she talked about many unfinished projects since she was a child; this makes her sad and she is critical of self; she loses interest inactivities/projects easily. she denies depression or significnt andxiety.. She denies SI or HI. Past Psychiatric History: outpt therapy and psychiatry at [facility] in the past Subjective Subjective Subjective Medication Compliance: Yes Side effects from medications: No Review of Systems Medical Review of Systems: unchanged Mental Status Exam Mental Status Exam Patient Appearance: Well Grooomed and Appropriate Patient Orientation: Person, Place, Time and Situation Level of Consciousness: Awake, Appropriate and Alert Patient Behavior: Appropriate, Cooperative and Good Eye Contact Mood Description: Sad Affect Description: Sad Patient Cognition Impaired: No Ability to Follow Directions: Excellent Speech Pattern: Clear, Appropriate and Coherent Memory Description: Intact Hallucinations: None Delusions: Not Present Thought Process: Intact Thought Content: positive for Intact and positive for Goal Oriented Judgement: Good Results Reviewed Results Reviewed: reviewed EKG, stress test, pulmonary. BP stable. Assessment and Plan Assessment & Plan (1) ADHD (attention deficit hyperactivity disorder), inattentive type: Status: Acute Code(s): F90.0 - Attention-deficit hyperactivity disorder, predominantly inattentive type Plan stop focalin at pt request trial of vyvanse 30mg am x 4 days then increase to 60mg qam if no side effects return in 3 weeks Medications: New lisdexamfetamine (Vyvanse) Partial Fill upon patient request. 30 mg PO DAILY 30 caps 0RF F90.0 - Attention-deficit hyperactivity disorder, predominantly inattentive type Discontinued dexmethylphenidate ER (Focalin XR) Partial Fill upon patient request. Discontinued Reason: Doctor's Order 10 mg PO DAILY 30 caps 0RF Counseling and coordination of Care Pt. Self Management counseling: Maintenance-social rhythm, Mod caffeine/ETOH intake, Nutrition education and improvement, Sleep hygiene, Behavior activation, General coping skills and Problem solving Medication management counseling: Effectiveness, Side effects, Dosing range, Duration, Drug interaction and Adherence Diagnosis and Prognosis Counseling: Accuracy of diagnosis, Prognosis over time, Impact of diagnosis on life functions, Impact of family relationship, Problematic behaviors secondary to diagnosis and Adequacy of current interventions Details: I spent 30 minutes reviewing the record, seeing the patient and documenting in the medical record. Counseling provided to the patient/caregiver as outlined below. Addressed patient/caregiver concerns regarding current medication regime including effective adherence. Addressed patient/caregiver concerns regarding diagnosis and prognosis including accuracy of diagnosis, prognosis over time, impact of diagnosis. Addressed patient/caregiver concerns regarding impact of recent stressors. [facility] Medical History Uncontrolled hypertension Abnormal stress test Acid reflux Sinusitis ALIX (obstructive sleep apnea) Chronic rhinitis Atopic dermatitis Asthma Surgical History No pertinent past surgical history Family History Mother Hypertension Pre-diabetes Arthritis Father Hypertension Maternal Grandmother Stroke Maternal Grandfather Diabetes Alcoholism Social History Housing: House Alcohol intake: current Alcohol intake frequency: a few times a month Alcohol type: wine Patient Tobacco Use Status: Never used Tobacco e-Cigarette/Vaping Use: Never Used Second Hand Smoke Exposure: No service: No Current occupational status: unemployed Cognitive needs: No Hearing needs: No Vision needs: Yes Social History: grew up inlarge family - youngest of 7 children. 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 Substance History: none Trauma History: none Coding Level of Care Code Est Pt Level 4 (57382) Diagnoses ADHD (attention deficit hyperactivity disorder), inattentive type F90.0
--- OUTSIDE RECORDS SUMMARY | 2024-11-01 11:44 | XMS_ITS | Continuity of Care Document ---
Author Organization [facility] [address] [facility] [address] [place] [address] Phone [phone] Care Team Providers Care Plant Utility Person Name Role Phone Beverly Cadena Care Team Information Manufacturing Assistant [phone] Problems Active Problems Provider Date Polycystic ovary [...] 2ml E66.9 Meseret Montero M.D. 09/30/2023 Z68.41 Urtgmawzjxidbe65ln Tablets Take 1 tablet by mouth once a day 90tabs Meseret Montero M.D. 09/02/2023 Vodbhnkslhquc7iw Tablets 1 tablet by poly th at 11 pm 1dolly Montero M.D. 09/02/2023 Albuterol Sulfate BVM714(90Base) mcg/Act Aerosol 2 puff Inhaled Every 4 [...] Dexamethasone, Serum 404 ng/dL 11 1 Test(s) 082656-74-DD Progesterone LCMS was developed and its performance characteristics determined by [facility]. It has not been cleared or approved by the Food and Drug Administration. 2 Prediabetes: 5.7 - 6 .4 Diabetes: >6.4 Glycemic control for adults with diabetes: <7.0 3 This test was develo ped and its performance characteristics determined by [employer]. It has not been cleared or approved [...]
== END 2024-11-01 10:49 | disposition home or self-care (01) ==
PROVIDERS: PCP Nurse Practitioner Family; Visit Provider Clinical Nurse Specialist Psychiatric/Mental Health
DX: F90.0 Attention-deficit hyperactivity disorder, predominantly inattentive type (principal)
CPT/HCPCS: 99214

== ENCOUNTER 2024-12-01 09:30 | Outpatient (AMB) | payer OTHER, SELFPAY ==
--- NOTE | 2024-12-01 09:35 | MHC.OFFVISPS ---
Intake Intake Visit Reasons: f/u consultation Calculus Teacher Required: No Allergies dust mite Allergy (Severe, Uncoded 10/26/24 09:41) stuffy nose, cough Medication List - Last Reconciled 12/01/24 by Angi Cage APRN albuterol sulfate 90 mcg/actuation 2 puffs inhalation Q6H PRN benzonatate 100 mg PO TID PRN 10 days eszopiclone (Lunesta) 1 mg PO BEDTIME PRN ipratropium bromide 2 sprays intranasal BID-TID PRN lisdexamfetamine (Vyvanse) 30 mg PO DAILY spironolactone 25 mg PO DAILY tirzepatide (weight loss) (Zepbound) 7.5 mg (0.5 mL) subcut QWEEK HPI- Psychiatric Chief Complaint: f/u consultation HPI Narrative: Pt here for follow up on ADHD. Pt reports improvement from vyvanse; she started with 30mg and had no side effects so she increased to 60mg daily. she felt much better focus and attention on 60mg . she can more easily stay on tasks. she reports being able to initiate task and finish them more easily. She is sleeping well. Her PHQ9=3 and her GAD7=1. She denies SI or HI. Past Psychiatric History: outpt therapy and psychiatry at [facility] in the past Subjective Subjective Subjective Medication Compliance: Yes Side effects from medications: No Review of Systems Medical Review of Systems: unchanged Mental Status Exam Mental Status Exam Patient Appearance: Well Grooomed and Appropriate Patient Orientation: Person, Place, Time and Situation Level of Consciousness: Awake, Appropriate and Alert Patient Behavior: Appropriate, Cooperative and Good Eye Contact Mood Description: Sad Affect Description: Sad Patient Cognition Impaired: No Ability to Follow Directions: Excellent Speech Pattern: Clear, Appropriate and Coherent Memory Description: Intact Hallucinations: None Delusions: Not Present Thought Process: Intact Thought Content: positive for Intact and positive for Goal Oriented Judgement: Good Results Reviewed Results Reviewed: reviewed EKG, stress test, pulmonary. BP stable. Assessment and Plan Assessment & Plan (1) ADHD (attention deficit hyperactivity disorder), inattentive type: Status: Acute Code(s): F90.0 - Attention-deficit hyperactivity disorder, predominantly inattentive type Plan Increase vyvanse to 70mg daily return in 2 months and if stable will refer back to PCP for follow up discussed paln with patient Medications: New lisdexamfetamine (Vyvanse) Partial Fill upon patient request. 70 mg PO QAM 30 caps 0RF Discontinued lisdexamfetamine (Vyvanse) Partial Fill upon patient request. Discontinued Reason: Doctor's Order 30 mg PO DAILY 30 caps 0RF F90.0 - Attention-deficit hyperactivity disorder, predominantly inattentive type Counseling and coordination of Care Pt. Self Management counseling: Maintenance-social rhythm, Mod caffeine/ETOH intake, Nutrition education and improvement, Sleep hygiene, Behavior activation, General coping skills and Problem solving Medication management counseling: Effectiveness, Side effects, Dosing range, Duration, Drug interaction and Adherence Diagnosis and Prognosis Counseling: Accuracy of diagnosis, Prognosis over time, Impact of diagnosis on life functions, Impact of family relationship, Problematic behaviors secondary to diagnosis and Adequacy of current interventions Details: I spent 35 minutes reviewing the record, seeing the patient and documenting in the medical record. Counseling provided to the patient/caregiver as outlined below. Addressed patient/caregiver concerns regarding current medication regime including effective adherence. Addressed patient/caregiver concerns regarding diagnosis and prognosis including accuracy of diagnosis, prognosis over time, impact of diagnosis. Addressed patient/caregiver concerns regarding impact of recent stressors. [facility] Medical History Uncontrolled hypertension Abnormal stress test Acid reflux Sinusitis ALIX (obstructive sleep apnea) Chronic rhinitis Atopic dermatitis Asthma Surgical History No pertinent past surgical history Family History Mother Hypertension Pre-diabetes Arthritis Father Hypertension Maternal Grandmother Stroke Maternal Grandfather Diabetes Alcoholism Social History Housing: House Alcohol intake: current Alcohol intake frequency: a few times a month Alcohol type: wine Patient Tobacco Use Status: Never used Tobacco e-Cigarette/Vaping Use: Never Used Second Hand Smoke Exposure: No service: No Current occupational status: unemployed Cognitive needs: No Hearing needs: No Vision needs: Yes Social History: grew up inlarge family - youngest of 7 children. lived with M & F works FT in [employer] at [employer]. Substance History: none Trauma History: none Coding Level of Care Code Est Pt Level 4 (41415) Diagnoses ADHD (attention deficit hyperactivity disorder), inattentive type F90.0
--- OUTSIDE RECORDS SUMMARY | 2024-12-01 11:03 | XMS_ITS | Continuity of Care Document ---
Author Organization [facility] [address] [place] [address] Phone [phone] Care Team Providers Care Physicist [employer] Name Role Phone Beverly Cadena Care Team Information Blood Bank Laboratory Technologist [phone] Problems Active Problems Provider Date Polycystic ovary [...] 2ml E66.9 Meseret Montero M.D. 09/30/2023 Z68.41 Fauiyjsozgsolw18ck Tablets Take 1 tablet by mouth once a day 90tabs Meseret Montero M.D. 09/02/2023 Sjusohefumfwr1rm Tablets 1 tablet by poly th at 11 pm 1dolly Montero M.D. 09/02/2023 Albuterol Sulfate BPM480(90Base) mcg/Act Aerosol 2 puff Inhaled Every 4 [...] Dexamethasone, Serum 404 ng/dL 11 1 Test(s) 242983-36-BP Progesterone LCMS was developed and its performance characteristics determined by [facility]. It has not been cleared or approved by the Food and Drug Administration. 2 Prediabetes: 5.7 - 6 .4 Diabetes: >6.4 Glycemic control for adults with diabetes: <7.0 3 This test was develo ped and its performance characteristics determined by [facility]. It has not been cleared or approved [...]
== END 2024-12-01 09:45 | disposition home or self-care (01) ==
LOC: HO.HOP 09:30
PROVIDERS: PCP Nurse Practitioner Family; Visit Provider Clinical Nurse Specialist Psychiatric/Mental Health
DX: F90.0 Attention-deficit hyperactivity disorder, predominantly inattentive type (principal)
CPT/HCPCS: 99214

== ENCOUNTER 2025-02-02 10:06 | Outpatient (AMB) | payer OTHER, SELFPAY ==
--- NOTE | 2025-02-02 10:13 | MHC.OFFVISPS ---
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 Pt reports early improvement from vyvanse but feels it didn't last; thinks itmay have been placebo. she has no side effects but not helping with attention, motivation, completing tasks, or staying on tasks. . She is sleeping well. Her PHQ9=5 and her GAD7=2. She denies SI or HI. She would like to try a non-stimulant Past Psychiatric History: outpt therapy and psychiatry at [facility] in the past Subjective Subjective Medication Compliance: Yes Side effects from medications: No Review of Systems Medical Review of Systems: unchanged Mental Status Exam Mental Status Exam Patient Appearance: Well Grooomed and Appropriate Patient Orientation: Person, Place, Time and Situation Level of Consciousness: Awake, Appropriate and Alert Patient Behavior: Appropriate, Cooperative and Good Eye Contact Mood Description: Sad Affect Description: Sad Patient Cognition Impaired: No Ability to Follow Directions: Excellent Speech Pattern: Clear, Appropriate and Coherent Memory Description: Intact Hallucinations: None Delusions: Not Present Thought Process: Intact Thought Content: positive for Intact and positive for Goal Oriented Judgement: Good Assessment and Plan Assessment & Plan (1) ADHD (attention deficit hyperactivity disorder), inattentive type: Status: Acute Code(s): F90.0 - Attention-deficit hyperactivity disorder, predominantly inattentive type Plan return in 8 weeks trial of atomoxetine discussed sing both atomoxitine and stimulant if necessary re Medications: New atomoxetine Take one capsule daily in am x 10 days then increase to 2 caps daily 40 mg PO QAM 60 caps 0RF Discontinued benzonatate Discontinued Reason: Patient Completed Course 100 mg PO TID 10 days PRN 30 caps 1RF cough Counseling and coordination of Care Pt. Self Management counseling: Maintenance-social rhythm, Mod caffeine/ETOH intake, Nutrition education and improvement, Sleep hygiene, Behavior activation, General coping skills and Problem solving Medication management counseling: Effectiveness, Side effects, Dosing range, Duration, Drug interaction and Adherence Diagnosis and Prognosis Counseling: Accuracy of diagnosis, Prognosis over time, Impact of diagnosis on life functions, Impact of family relationship, Problematic behaviors secondary to diagnosis and Adequacy of current interventions Details: I spent 35 minutes reviewing the record, seeing the patient and documenting in the medical record. Counseling provided to the patient/caregiver as outlined below. Addressed patient/caregiver concerns regarding current medication regime including effective adherence. Addressed patient/caregiver concerns regarding diagnosis and prognosis including accuracy of diagnosis, prognosis over time, impact of diagnosis. Addressed patient/caregiver concerns regarding impact of recent stressors. [facility] Medical History Uncontrolled hypertension Abnormal stress test Acid reflux Sinusitis ALIX (obstructive sleep apnea) Chronic rhinitis Atopic dermatitis Asthma Surgical History No pertinent past surgical history Family History Mother Hypertension Pre-diabetes Arthritis Father Hypertension Maternal Grandmother Stroke Maternal Grandfather Diabetes Alcoholism Social History Housing: House Alcohol intake: current Alcohol intake frequency: a few times a month Alcohol type: wine Patient Tobacco Use Status: Never used Tobacco e-Cigarette/Vaping Use: Never Used Second Hand Smoke Exposure: No service: No Current occupational status: unemployed Cognitive needs: No Hearing needs: No Vision needs: Yes Social History: grew up inlarge family - youngest of 7 children. lived with M & F works FT in [email or web address] at [employer] Substance History: none Trauma History: none Coding Level of Care Code Est Pt Level 4 (65241) Diagnoses ADHD (attention deficit hyperactivity disorder), inattentive type F90.0
--- OUTSIDE RECORDS SUMMARY | 2025-02-02 12:08 | XMS_ITS | Data Portability ---
Author Organization [place] - [facility], Allergy Address [address] [address] Care Team Providers Care Tailing Hand Name Role Phone JAVIER DOYLE Primary Care [...] mcg (0.03 %) nasal spray 2023 024 [facility]/Pharmacy #[id number], [address] [facility], [place], [address], 14:40:39 Patient TargetsNo targets recorded. Patient InstructionsNo instructions recorded. Reason for Referral None Reported. Problems Name Problem SNOMED Code Status Onset Date Resolution Date Notes Provider Name and Address Organization Details Recorded Time Vasomotor rhinitis 1966057 Active SHIRA VAZQUEZ MD [address] [facility] [place] [address], [facility] [place], [address] , [facility] 4 14:36:03 Snoring 26649613 Active SHIRA VAZQUEZ MD [address] [facility] [place],[facility] 100, [facility] [place], [address] , [facility] 4 14:36:11 Problem Notes None recorded. Procedures Surgical History Date Name Laterality Status Provider Name and Address Organization Details Recorded Time 4 JMSNasal/Sinus Endoscopy completed SHIRA JO MD [address] [facility], [place], [address], [facility] 01/27/2024 14:37:32 Imaging Results None recorded. [...] Updated DateTime 01/27/2024 165.1 cm 44.9 kg/m2 161031.94 g Efren Wong [place] - [facility] 01/27/2024 14:25:25 Social History None recorded. Functional Status None recorded. Mental Status None recorded. Family History Nothing Reported. Medical History Condition Response Anxiety Gynecological HistoryNo gynecological history recorded. Obstetrics History GPAL:G 0 P 0 0 0 0 Past Encounters Encounter ID Performer Location Encounter Start Date Encounter Closed Date Diagnosis/Indication Diagnosis SNOMED-CT Code Diagnosis ICD10 Code Diagnosis IMO Codes Diagnosis Note [id number] SHIRA VAZQUEZ MD [facility] [address] [address] 01/27/2024 14:04:46 01/27/2024 14:41:43 Vasomotor rhinitis 6818081 J30.0 Snoring 24980613 R06.83 Given PSG reportedly negative. She is being evaluated for medical treatment of obesity Body mass index 40+ - severely obese 359885491 Z68.42 Health Concerns Section Related Observation LastModified by Organization Detai ls LastModified Time None Recorded Concern Status LastModified by Organization Details LastModified Time None Recorded Advance Directives Directive None Recorded Payers Insurance Date Sequence Insurance Name Policy Number Policy Damon Covered Member ID Damon Member ID Guarantor Name 07/15/2024 1 [employer] [facility] ([place]) [id number] Angelita Wagoner [id number] Micaela Wagoner Notes Date Note Type Note Provider Name and Address Organization Details Recorded Time 01/27/2024 text/html 23-year-old female seen for an opinion regarding nasal congestion refractory to fluticasone nasal spray. She notes snoring but had a negative sleep study by report. Had sinus x-rays and seen for an opinion regarding possible septal deviation. She notes mild dust mite allergy SHIRA JO MD [address] [place] [address], [id number], [facility] - [facility] 01/27/2024 14:44:18 OBGyn Episode No OBEpisode recorded.
--- OUTSIDE RECORDS SUMMARY | 2025-02-02 12:08 | XMS_ITS | Continuity of Care Document ---
Author Organization [facility] [address] [place] [address] Phone [phone] Care Team Providers Care Solutions Executive Cloud Sales Name Role Phone Beverly Cadena Care Team Information Plumbing Service Technician [phone] Problems Active Problems Provider Date Polycystic ovary [...] 2ml E66.9 Meseret Montero M.D. 09/30/2023 Z68.41 Sdbxkhpnvoorbk53mm Tablets Take 1 tablet by mouth once a day 90tabs Meseret Montero M.D. 09/02/2023 Clgjarmucnadv4mv Tablets 1 tablet by poly th at 11 pm 1dolly Montero M.D. 09/02/2023 Albuterol Sulfate UXR855(90Base) mcg/Act Aerosol 2 puff Inhaled Every 4 [...] Dexamethasone, Serum 404 ng/dL 11 1 Test(s) 377416-97-KB Progesterone LCMS was developed and its performance characteristics determined by [facility]. It has not been cleared or approved by the Food and Drug Administration. 2 Prediabetes: 5.7 - 6 .4 Diabetes: >6.4 Glycemic control for adults with diabetes: <7.0 3 This test was develo ped and its performance characteristics determined by [facility]. It has not been cleared or approved [...]
== END 2025-02-02 10:40 | disposition home or self-care (01) ==
LOC: HO.HOP 10:06
PROVIDERS: PCP Nurse Practitioner Family; Visit Provider Clinical Nurse Specialist Psychiatric/Mental Health
DX: F90.0 Attention-deficit hyperactivity disorder, predominantly inattentive type (principal)
CPT/HCPCS: 99214

== ENCOUNTER 2025-02-07 14:14 | Outpatient (REF) | payer OTHER, SELFPAY ==
[2025-02-07 18:15] LABS: Resp Syncy Virus RNA Qual PCR NEGATIVE (Negative); SARS COV2 PCR INHOUSE NEGATIVE (Negative)
== END 2025-02-07 14:15 | disposition home or self-care (01) ==
LOC: HO.LAB 14:14
PROVIDERS: Physician Assistant Medical; PCP Nurse Practitioner Family
DX: J02.9 Acute pharyngitis, unspecified (principal)
CPT/HCPCS: 87637

== ENCOUNTER 2025-02-07 14:14 | Outpatient (AMB) | payer OTHER, SELFPAY ==
[2025-02-07 14:18] VITALS: BP 106/78; PULSE 101; TEMP 36.7; O2SAT 97; BMI 32.9
--- NOTE | 2025-02-07 14:18 | MHC.OFFWIV ---
Intake Vital Signs 02/07/25 14:18 Height 5 ft 5 in Weight 198 lb BMI 32.9 BP 106/78 Blood Pressure Location Rt brachial Position Sitting Pulse 101 H Pulse Source Pulse Oximeter Temp 98.1 F Temp Source Oral Pulse Oximetry (%) 97 Oxygen Delivery Method Room Air Intake Visit Reasons: EP-strep throat Intake Note: Patient presents c/o sore throat, fatigue, fever, weakness, cough x4 days Patient Tobacco Use Status: Never used Tobacco Allergies dust mite Allergy (Severe, Uncoded 02/07/25 14:20) stuffy nose, cough Do you need a note to return to daycare/school/sports/work: Yes HPI HPI Comments History of Present Illness Details History - The patient is a 24-year-old female presenting with sore throat. - The patient reports a sore throat, fever, and headache for the past four days. - The sore throat is accompanied by redness, and the patient feels more tired than usual. - The patient also experiences a productive cough, nasal congestion, sneezing, and myalgia, particularly in the back. - Symptoms have persisted for approximately four days, with a fever noted yesterday. - The patient has been taking steroids, which have helped with achiness but not with throat pain. - She has no sick contacts and does not smoke. - She denies fever, chills, CP, SOB, abd pain, or n/v/d. - She has no recent travel. Physical Exam General: Cooperative, healthy appearing, comfortable and no acute distress Orientation/consciousness: Patient oriented x3 Limitations: No limitations Head: Normal to inspection Ears: Hearing grossly normal bilaterally, external ears normal and TM's normal bilaterally Nose: Normal external nose present, normal nares present, and no nasal discharge present. Face and sinus: Sinuses nontender to palpation. Mouth: Normal oral and palatal mucosa present and moist mucous membranes noted. Throat: Tonsils normal. Uvula is midline. Posterior oropharynx with erythema and no exudates. Eyes: Appearance normal, both eyes and all related structures Neck: Normal visual inspection, full ROM. No lymphadenopathy noted. Respiratory: Clear to auscultation bilaterally. Normal respiratory effort, able to speak in complete sentences. No respiratory distress, not tachypneic, no tripod positioning and no use of accessory muscles. Cardiovascular: Regular rate and rhythm. Normal S1 and S2. No m/r/g noted. Skin: No rashes or lesions noted Patient was informed and verbally consented to the use of an ambient scribe for clinic note documentation during this visit [facility] Medical History Uncontrolled hypertension Abnormal stress test Acid reflux Sinusitis ALIX (obstructive sleep apnea) Chronic rhinitis Atopic dermatitis Asthma Surgical History No pertinent past surgical history Family History Mother Hypertension Pre-diabetes Arthritis Father Hypertension Maternal Grandmother Stroke Maternal Grandfather Diabetes Alcoholism Social History Housing: House Alcohol intake: current Alcohol intake frequency: a few times a month Alcohol type: wine Patient Tobacco Use Status: Never used Tobacco e-Cigarette/Vaping Use: Never Used Second Hand Smoke Exposure: No service: No Current occupational status: unemployed Cognitive needs: No Hearing needs: No Vision needs: Yes Female Reproductive History Menstrual Age of Menarche: 9 Review of Systems Const All systems reviewed & are unremarkable except as noted in HPI and below Physical Exam Vital Signs: Last Vital Signs Temp 98.1 F 02/07/25 14:18 Pulse 101 H 02/07/25 14:18 BP 106/78 02/07/25 14:18 Pulse Ox 97 02/07/25 14:18 Oxygen Delivery Method Room Air 02/07/25 14:18 BMI result Body Mass Index 32.9 Assessment & Plan Assessment & Plan (1) Sore throat: Code(s): J02.9 - Acute pharyngitis, unspecified Plan Most likely URI vs strep vs viral illness vs allergic rhinitis vs covid vs flu Rapid was negative plan - tylenol or motrin as needed for pain or fever - diet as tolerated - will order a resp panel - tessalon perles as needed for throat pain and cough - zyrtec D daily - follow up with PCP as needed Orders: Orders SARS-CoV2/FLU/RSV Today R09.89 - Other specified symptoms and signs involving the circulatory and respiratory systems Medications: New benzonatate 100 mg PO bid-tid PRN 21 caps 0RF Cough 7 days cetirizine-pseudoephedrine 5-120 mg ER 1 tab PO BID 14 tabs 0RF 7 days Coding Level of Care Code Est Pt Level 3 (53694) Diagnoses Sore throat J02.9
--- OUTSIDE RECORDS SUMMARY | 2025-02-08 10:17 | XMS_ITS | Continuity of Care Document ---
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 09/30/2023 Z68.41 Mazvexcdpjqsgl98bg Tablets Take 1 tablet by mouth once a day 90tabs Meseret Montero M.D. 09/02/2023 Qnvwnixonycwj2vb Tablets 1 tablet by poly th at 11 pm 1dolly Montero M.D. 09/02/2023 Albuterol Sulfate PXR795(90Base) mcg/Act Aerosol 2 puff Inhaled Every 4 [...] Dexamethasone, Serum 404 ng/dL 11 1 Test(s) 517406-29-MS Progesterone LCMS was developed and its performance characteristics determined by [facility]. It has not been cleared or approved by the Food and Drug Administration. 2 Prediabetes: 5.7 - 6 .4 Diabetes: >6.4 Glycemic control for adults with diabetes: <7.0 3 This test was develo ped and its performance characteristics determined by [employer]. It has not been cleared or approved [...]
== END 2025-02-07 15:03 | disposition home or self-care (01) ==
PROVIDERS: PCP Nurse Practitioner Family; Visit Provider Physician Assistant Medical
DX: J02.9 Acute pharyngitis, unspecified (principal)

== ENCOUNTER 2025-03-01 11:55 | Outpatient (AMB) | payer OTHER, SELFPAY ==
--- NOTE | 2025-03-01 11:57 | A.OFFPC_ITS ---
Vital Signs 03/01/25 12:03 Height 5 ft 5 in Weight 195 lb 8 oz BMI 32.5 BP 105/67 Blood Pressure Location Lt brachial Position Sitting Respiration 12 Pulse 62 Pulse Source Pulse Oximeter Temp 97.7 F Temp Source Oral Pulse Oximetry (%) 99 Oxygen Delivery Method Room Air Intake Visit Reasons: 1 year CPE Intake Note: CPE. Patient c/o dizziness and almost falling almost every time she gets up and was wondering if she can get tested for iron. Patient was wondering about having a couple of days of the month off because of her menstrual cycle. 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 Required: No Allergies mold Allergy (Severe, Verified 03/01/25 12:14) Unknown Seasonal Allergies Allergy (Severe, Verified 03/01/25 12:14) Unknown dust mite Allergy (Severe, Uncoded 03/01/25 12:03) stuffy nose, cough Medication List - Last Reconciled 03/01/25 by Lois Nance, [facility]- albuterol sulfate 90 mcg/actuation 2 puffs inhalation Q6H PRN atomoxetine 80 mg PO DAILY cetirizine-pseudoephedrine 5-120 mg ER 1 tab PO BID 7 days eszopiclone (Lunesta) 1 mg PO BEDTIME PRN ipratropium bromide 2 sprays intranasal BID-TID PRN lisdexamfetamine (Vyvanse) 70 mg PO QAM spironolactone 25 mg PO DAILY tirzepatide (weight loss) (Zepbound) 7.5 mg (0.5 mL) subcut QWEEK Tobacco use date assessed: 03/01/25 Dental Screening Dental Screen Date: 03/01/25 Did you have a dental visit in the last 12 months?: Yes Did you have a dental problem in the last 6 months where you did not have access to dental care?: No Was dental information given to patient?: Patient has dentist HPI HPI Comments History of Present Illness Details 24-year-old female with major depressive disorder, morbid obesity, mild intermittent asthma, GERD, hx of hypertension, seasonal allergies, atopic dermatitis, scoliosis, KEKE, Iron Def anemia, hepatic steatosis (07/28/22 Abd CTA), PCOS, ADHD Social: born in [facility], lives w/ parents and siblings; work in [employer] job Surgery: No changes Fhx: No changes Health Maintenance: [facility] assoc pap 2022 Tdap 08/25/23 Declined flu vaccine 03/01/25 Specialists Optho contacts exam 1 month ago Endo next appt 03/2025 History of Present Illness The patient is a 24 year old female presenting for an annual physical exam, dizziness upon standing, concerns about hypermobility, and inquiries about iron testing and medical leave for menstrual symptoms. Orthostatic Hypotension: - The patient has long had a head ruelas a nd some darkening of vision when standing up after sitting for a long time, but these symptoms have worsened over the last few months. - Now, when she gets up and starts walki ng, she needs to grab onto something to prevent falling and experiences vision darkening to the point of pinhole vision. - Her blood pressure now low after wt lo ss, measuring 105/67 mmHg today and 106/78 mmHg previously. - She has a history of high blood pressu re, which resolved with weight loss. - She is concerned about a potential fal l or fainting episode. - on carson for hirsutism. Dysmenorrhea and Premenstrual Syndrome: - The patient's menstrual periods are be coming more regular. - For two to four days before her period begins, she experiences symptoms so severe she is unable to get out of bed, including extreme physical exhaustion, cramps, achiness, and mood swings. - During these premenstrual days, she al so experiences significant depression. - She has correlated these episodes of s harp decline in mood with her menstrual cycle. - Wants intermittent FMLA Iron deficiency anemia: - The patient has a past medical history of iron deficiency anemia. - She is concerned about her iron levels due to her symptoms of dizziness and near-falling. Hypermobility Syndrome: - The patient reports being hypermobile and is concerned about the possibility of Shanell-Danlos syndrome. - She notes that her hypermobility is ge neralized but is particularly noticeable in her knees, which overextend, as well as her hands and neck. - She recently realized she may not be w alking correctly, as her body parts are not stacking properly. - She also notes that when performing ex ercises like squats, she does not feel the exercise in the intended muscles (hips or glutes) but rather in her legs or back, suggesting improper form. Past Medical History - Obesity with a current BMI of 32.5, ma naged by endocrinology with Tirzepatide. - Polycystic Ovary Syndrome (PCOS). - ADHD, managed by the adult bridge genesis valenzuela with Vyvanse and Atomoxetine. - Insomnia, for which she uses Lunesta. - Hirsutism associated with PCOS, treate d with Spironolactone - Asthma, using albuterol as needed, whi ch is well-controlled. - Iron deficiency anemia. - Hepatic steatosis. - Atopic dermatitis. - Depression, diagnosed a long time ago. - History of low Vitamin D, for which sh chetna takes supplements. - History of high blood pressure, now re solved with weight loss. - Multiple allergies, previously treated with allergy shots which were d iscontinued due to side effects. She now takes daily hmus-myq-qfeuwpz allergy medication. Past Surgical History - No surgeries reported in the last year . Family History - No changes in family medical history r eported in the last year. Social History - The patient lives with her parents and two siblings and reports feeling safe at home. 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 - No recent social changes were reported . Health Maintenance - The patient's medications for ADHD, PC OS, and asthma were reviewed. - Immunization status was reviewed; she is up-to-date on her Tdap. Declined flu Review of Systems - Neurological: Reports worsening dizzin ess, head ruelas, and visual darkening upon standing over the last few months, to the point of near-falling and pinhole vision. Denies fainting. - Musculoskeletal: Reports generalized h ypermobility, most noticeable in her knees (hyperextension), hands, and neck. Notes that she does not feel exercises in the target muscle groups. Reports not walking correctly. Denies pain in the hip or knee during range of motion testing. - Gynecological: Reports menstrual cycle s are becoming more regular. Experiences severe premenstrual symptoms for 2-4 days, including incapacitating fatigue, cramps, body aches, and disabling mood swings, which require her to stay in bed. - Psychiatric: Reports periods of severe depression correlated with her m enstrual cycle. - Respiratory: Reports manageable asthma and rarely uses her inhaler. Reports having - Allergic/Immunologic: Reports having n umerous allergies, which are managed with a daily zewc-ism-bytzujn medication. - Gastrointestinal: Reports normal bowel movements. Denies abdominal pain or tenderness on palpation. - Genitourinary: Reports normal urinatio n. Physical Exam General: Well developed, well nourished, in no acute distress. Appears stated age. Head: Normocephalic, atraumatic. Eyes: Pupils are equal, round and reactive to light and accommodation. Conjunctivae are clear. Scleras nonicteric bilat. Vision grossly normal. Ears: TMs clear AU, EACS WNL Nose: Patent, without discharge. Neck: No carotid bruit bilat. Supple, no adenopathy or thyromegaly. Breast: Edu on SBE Lungs: Clear to auscultation bilaterally. No rales, rhonchi or wheeze noted. Good air flow in all powers. + orthostasis noted w/ position change Heart: Regular rate and rhythm. No murmurs, click, rubs or gallops are noted. Blood pressure noted to be low at 105/67. Abdomen: Bowel sounds present in all quadrants. The abdomen is soft, nontender, with no masses or organomegaly noted. No hernias are noted. : Deferred. 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 Pulses: Peripheral pulses are equal and palpable bilaterally. Extremities: No clubbing, cyanosis nor edema is noted. Reports dizziness and dougie r-fainting upon standing. Neurologic: Gait and station normal. Cranial Nerves 2-12 intact. Motor strength grossly symmetrical and intact. No sensory loss. Balance normal. Skin: No rashes, ulcers, or lesions noted. Turgor is good. Skin color is good. Hair and nails are without abnormalities. Psych: Normal eye contact, affect and mood appropriate, and normal interactions. Patient is alert and appropriate to context. Reports mood swings and depression correlated with menstrual cycle. Results Pending Medical Decision Making The patient is a 24-year-old female presenting for an annual exam with primary complaints of worsening orthostatic symptoms, concerns about hypermobility, and severe premenstrual symptoms. The dizziness, visual darkening, and near-falls upon standing are consistent with orthostasis, likely exacerbated by her low baseline blood pressure of 105/67 mmHg and her current use of spironolactone, a blood pressure medication. Although her blood pressure was previously high, her recent weight loss has likely lowered it, making the spironolactone's effect more pronounced. Given her history of iron deficiency anemia and severe menstrual symptoms, anemia as a contributor to hypovolemia and orthostasis must be evaluated. Her concerns about hypermobility and possible Shanell-Danlos syndrome (EDS) are noted. While formal genetic testing for EDS is expensive and often not covered by insurance, and rheumatology referral is unlikely to be accepted for hypermobility without other signs, the patient's symptoms of improper body mechanics and difficulty with exercise form warrant intervention. Lifelong physical therapy is the primary treatment for hypermobility syndrome, and a referral is appropriate to teach her correct posture, walking mechanics, and exercise techniques. The patient's severe premenstrual symptoms, including incapacitating fatigue and mood disturbances, are impacting her ability to function and work. She has inquired about FMLA for intermittent leave, which is a reasonable request given the severity of her symptoms. Plan 1. Orthostatic Hypotension - The patient was advised to stop taking spironolactone immediately, as it is likely contributing to her low blood pressure and orthostatic symptoms. - Advised to make slow position changes, increase salt and fluid intake to help raise blood pressure, and wear compression stockings or tight pants to improve venous return. - Blood work, including a CBC to check f or anemia, a comprehensive metabolic panel to assess kidney function, liver function, and electrolytes, and a vitamin D level, will be drawn today. - Follow up on blood pressure [place] [facility] [place] in [place]. 2. Hypermobility Syndrome - A referral was placed for physical the rapy for evaluation and treatment of generalized hypermobility, with a focus on knee and shoulder. - The patient was advised to contact the office if she does not hear from the physical therapy group to schedule an appointment. - Discussed that Shanell-Danlos is a clin ical diagnosis, and genetic testing is expensive and primarily rules out other, rarer types. 3. Dysmenorrhea/Premenstrual Syndrome - The patient was advised to speak with her HR department to obtain FMLA paperwork for intermittent leave due to severe menstrual symptoms. - She will bring the forms to the office to be completed during a dedicated appointment. Patient Instructions - Stop taking your spironolactone medica tion immediately. - Change positions slowly, especially wh en going from sitting or lying down to standing, to reduce dizziness. - You may increase your salt and fluid i ntake to help raise your blood pressure. - Wearing compression socks or tight com pression pants can help reduce your symptoms of dizziness. - We have sent a referral for physical t herapy. They will call you to schedule an appointment. If you do not hear from them, please send us a message through the portal. - Go to the lab to have your blood drawn today before you leave. - Contact your HR department to get FMLA paperwork for your severe menstrual symptoms. Once you have the forms, bring them to the office so we can complete t hem together in an appointment. - Your blood pressure will be checked at your endocrinology appointment in March. - Please schedule your next annual physi opal exam for one year from now. Consent Patient was informed and verbally consented to the use of an ambient scribe for clinic note documentation during this visit. An additional 20 minutes was spent addressing the problem(s) noted at todays visit. This includes time spent before the visit reviewing the chart, time spent during the visit, and time spent after the visit on documentation reviewing laboratory results, diagnostic imaging, medications, performing a medically necessary evaluation, counseling on diagnoses, care coordination, ordering appropriate tests, ordering appropriate medications, review of tests performed by other providers, reporting test results with the patient, communication with other healthcare providers. [facility] Medical History Uncontrolled hypertension Abnormal stress test Acid reflux Sinusitis ALIX (obstructive sleep apnea) Chronic rhinitis Atopic dermatitis Asthma Surgical History No pertinent past surgical history Family History Mother Hypertension Pre-diabetes Arthritis Father Hypertension Maternal Grandmother Stroke Maternal Grandfather Diabetes Alcoholism Social History Housing: House Alcohol intake: current Alcohol intake frequency: a few times a month Alcohol type: wine Patient Tobacco Use Status: Never used Tobacco e-Cigarette/Vaping Use: Never Used Second Hand Smoke Exposure: No service: No Current occupational status: unemployed Current occupational exposures/hazards: No Cognitive needs: No Hearing needs: No Vision needs: Yes Female Reproductive History Menstrual Age of Menarche: 9 Questionnaire PHQ-9 Over the last 2 weeks, how often have you been bothered by any of the following problems? 1. Little interest or pleasure in doing things: not at all 2. Feeling down, depressed, or hopeless: not at all 3. Trouble falling or staying asleep, or sleeping too much: not at all 4. Feeling tired or having little energy: not at all 5. Poor appetite or overeating: not at all 6. Feeling bad about yourself - or that you are a failure or have let yourself or your family down: not at all 7. Trouble concentrating on things, such as reading the newspaper or watching television: not at all 8. Moving or speaking so slowly that other people could have noticed. Or the opposite - being so fidgety or restless that you have been moving around a lot more than usual: not at all 9. Thoughts that you would be better off or of hurting yourself in some way: not at all Total score: 0 Depression Screening Interpretation: Negative Depression Screening Done: Yes 29344 - PHQ-9 Billing: Yes Source: Developed by Drs. Lavelle Alvarez, Stacey Johns, Dwight Davis and colleagues, with an educational karen from [employer]. Thrive Questionnaire Date Thrive assessed: 03/01/25 I am a: Patient What is your living situation today?: I have a steady place to live Within the past 12 months, did the food you bought not last and you didn't have the money to get more?: Never true Within the past 12 months, did you worry whether your food would run out before you got money to buy more?: Never true Do you have trouble paying for medicines?: No Do you have trouble getting transportation to medical appointments?: No Do you have trouble paying your heating and electricity bill?: No Do you have trouble taking care of your child, family member or friend?: No Do you have trouble with day-to-day activities such as bathing, preparing meals, shopping, managing finances, etc.?: Yes Are you currently unemployed and looking for a job?: No Are you interested in more education?: Yes Please select the resources that you would like help with: None Currently or been in a relationship where the following occur: No concerns reported THRIVE Score: 0 AUDIT C Alcohol Use Questionnaire (AUDIT-C) 1. How often do you have a drink containing alcohol?: Never 2. How many drinks containing alcohol do you have on a typical day when you are drinking?: 1 or 2 3. How often do you have six or more drinks on one occasion?: Never Total Score: 0 Score Reviewed/Action Taken: Yes KEKE-7 AMB Questionnaire KEKE-7 Date KEKE - 7 assessed: 03/01/25 Feeling nervous, anxious, or on edge: 0 = Not at all Not being able to stop or control worryin = Not at all Worrying too much about different things: 0 = Not at all Trouble relaxin = Not at all Being so restless that it is hard to sit still: 0 = Not at all Becoming easily annoyed or irritable: 0 = Not at all Feeling afraid as if something awful might happen: 0 = Not at all Total KEKE-7 score (0-4 normal; 5-9 mild; 10-14 moderate; 15-21 severe): 0 Source: Developed by Drs. Lavelle Alvarez, Stacey Johns, Dwight Davis and colleagues, with an educational karen from [employer]. KEKE-7 Assessment Billing KEKE-7 Assessment Tool: KEKE-7 Assessment 64172 ACT Questionnaire In the past 4 weeks, how much of the time did your asthma keep you from getting as much done at work, school or at home?: None of the time During the past 4 weeks, how often have you had shortness of breath?: Not at all During the past 4 weeks, how often did your asthma symptoms wake you up at night or earlier than usual in the morning?: Not at all During the past 4 weeks, how often have you had to use your rescue inhaler or nebulizer medication?: Not at all How would you rate your asthma control during the past 4 weeks?: Completely controlled ACT Interpretation: Negative Score: 25 Physical exam (Primary Care) Vital Signs: Last Vital Signs Temp 97.7 F 03/01/25 12:03 Pulse 62 03/01/25 12:03 Resp 12 03/01/25 12:03 BP 105/67 03/01/25 12:03 Pulse Ox 99 03/01/25 12:03 Oxygen Delivery Method Room Air 03/01/25 12:03 BMI result Body Mass Index 32.5 BMI Assessment/Plan discussion: High BMI High, discussed plan: lifestyle Tobacco/Smoking Status: Tobacco use Status Tobacco use date assessed 03/01/25 03/01/25 12:05 Patient Tobacco Use Status Never used Tobacco 03/01/25 12:05 e-Cigarette/Vaping Use Never Used 03/01/25 12:05 PHQ-9: PHQ-9 Score PHQ-9: Total score 0 03/01/25 12:12 Depression Screening Interpretation: Negative Thrive Assessment: Date of Thrive Assessment Date Thrive assessed 03/01/25 03/01/25 12:05 Currently or been in a relationship where the following occur: No concerns reported Coding Level of Care Code Est Pt Level 3 (36255) Est Pt Prev Care 18-39y(59594) Diagnoses Physical exam Z00.00 Hypermobile joint syndrome of multiple sites M24.80 Mild major depression F32.0 KEKE (generalized anxiety disorder) F41.1 ADHD (attention deficit hyperactivity disorder), inattentive type F90.0 Moderate mixed hyperlipidemia not requiring statin therapy E78.2 Hyperlipidemia type: moderate mixed hyperlipidemia not requiring statin therapy PCOS (polycystic ovarian syndrome) E28.2 Vitamin D deficiency E55.9 Chronic GERD K21.9 Menorrhagia with irregular cycle N92.1 Iron deficiency anemia secondary to inadequate dietary iron intake D50.8 Iron deficiency anemia type: inadequate dietary iron intake Mild intermittent asthma without complication J45.20 Asthma complication type: uncomplicated Asthma persistence: intermittent Asthma severity: mild Atopic dermatitis, unspecified type L20.9 Atopic dermatitis type: unspecified Environmental allergies Z91.09 Obesity (BMI 30-39.9) E66.9 Chronic rhinitis J31.0 Influenza vaccination declined Z28.21 History of Papanicolaou smear of cervix Z92.89 Orthostasis I95.1 Additional Codes Asthma Control Questionnaire - ACT Interpretation: Negative ([id number]) KEKE-7 Assessment Billing - KEKE-7 Assessment Tool: KEKE-7 Assessment 33868 ([id number]) PHQ-9 - 16362 - PHQ-9 Billing: Yes ([id number]) Assessment & Plan Assessment & Plan (1) Physical exam: Onset Date: ~03/01/25 Code(s): Z00.00 - Encounter for general adult medical examination without abnormal findings Category: Medical (2) Hypermobile joint syndrome of multiple sites: Code(s): M24.80 - Other specific joint derangements of unspecified joint, not elsewhere classified Category: Medical (3) Mild major depression: Code(s): F32.0 - Major depressive disorder, single episode, mild Category: Medical (4) KEKE (generalized anxiety disorder): Code(s): F41.1 - Generalized anxiety disorder Category: Medical (5) ADHD (attention deficit hyperactivity disorder), inattentive type: Code(s): F90.0 - Attention-deficit hyperactivity disorder, predominantly inattentive type Category: Medical (6) Hyperlipemia: Code(s): E78.5 - Hyperlipidemia, unspecified Category: Medical Qualifiers: Hyperlipidemia type: moderate mixed hyperlipidemia not requiring statin therapy Qualified Code(s): E78.2 - Mixed hyperlipidemia (7) PCOS (polycystic ovarian syndrome): Code(s): E28.2 - Polycystic ovarian syndrome Category: Medical (8) Vitamin D deficiency: Code(s): E55.9 - Vitamin D deficiency, unspecified Category: Medical (9) Chronic GERD: Code(s): K21.9 - Gastro-esophageal reflux disease without esophagitis Category: Medical (10) Menorrhagia with irregular cycle: Code(s): N92.1 - Excessive and frequent menstruation with irregular cycle Category: Medical (11) Iron deficiency anemia: Code(s): D50.9 - Iron deficiency anemia, unspecified Category: Medical Qualifiers: Iron deficiency anemia type: inadequate dietary iron intake Qualified Code(s): D50.8 - Other iron deficiency anemias (12) Asthma: Code(s): J45.909 - Unspecified asthma, uncomplicated Category: Medical Qualifiers: Asthma complication type: uncomplicated Asthma persistence: intermittent Asthma severity: mild Qualified Code(s): J45.20 - Mild intermittent asthma, uncomplicated (13) Atopic dermatitis: Code(s): L20.9 - Atopic dermatitis, unspecified Category: Medical Qualifiers: Atopic dermatitis type: unspecified Qualified Code(s): L20.9 - Atopic dermatitis, unspecified (14) Environmental allergies: Code(s): Z91.09 - Other allergy status, other than to drugs and biological substances Category: Medical (15) Obesity (BMI 30-39.9): Code(s): E66.9 - Obesity, unspecified Category: Medical (16) Chronic rhinitis: Code(s): J31.0 - Chronic rhinitis Category: Medical (17) Influenza vaccination declined: Onset Date: ~03/01/25 Code(s): Z28.21 - Immunization not carried out because of patient refusal Category: Medical (18) History of Papanicolaou smear of cervix: Onset Date: ~2022 Code(s): Z92.89 - Personal history of other medical treatment Category: Medical (19) Orthostasis: Code(s): I95.1 - Orthostatic hypotension Category: Medical Plan ,. Orders: Orders Complete Blood Count no Diff Today D50.8 - Other iron deficiency anemias, E28.2 - Polycystic ovarian syndrome, E55.9 - Vitamin D deficiency, unspecified, E78.5 - Hyperlipidemia, unspecified Comprehensive Met. Panel Today D50.8 - Other iron deficiency anemias, E28.2 - Polycystic ovarian syndrome, E55.9 - Vitamin D deficiency, unspecified, E78.5 - Hyperlipidemia, unspecified Ferritin Today D50.8 - Other iron deficiency anemias, E28.2 - Polycystic ovarian syndrome, E55.9 - Vitamin D deficiency, unspecified, E78.5 - Hyperlipidemia, unspecified Hemoglobin A1c Today D50.8 - Other iron deficiency anemias, E28.2 - Polycystic ovarian syndrome, E55.9 - Vitamin D deficiency, unspecified, E78.5 - Hyperlipidemia, unspecified Lipid Panel Today D50.8 - Other iron deficiency anemias, E28.2 - Polycystic ovarian syndrome, E55.9 - Vitamin D deficiency, unspecified, E78.5 - Hyperlipidemia, unspecified TSH reflex Free T4 Today D50.8 - Other iron deficiency anemias, E28.2 - Polycystic ovarian syndrome, E55.9 - Vitamin D deficiency, unspecified, E78.5 - Hyperlipidemia, unspecified Vitamin B12 and Folate Today D50.8 - Other iron deficiency anemias, E28.2 - Polycystic ovarian syndrome, E55.9 - Vitamin D deficiency, unspecified, E78.5 - Hyperlipidemia, unspecified Vitamin D 25-OH Total Today D50.8 - Other iron deficiency anemias, E28.2 - Polycystic ovarian syndrome, E55.9 - Vitamin D deficiency, unspecified, E78.5 - Hyperlipidemia, unspecified PT Evaluation and Treatment Today M24.80 - Other specific joint derangements of unspecified joint, not elsewhere classified, M25.519 - Pain in unspecified shoulder, M25.569 - Pain in unspecified knee IRON PROFILE Today D50.8 - Other iron deficiency anemias, E28.2 - Polycystic ovarian syndrome, E55.9 - Vitamin D deficiency, unspecified, E78.5 - Hyperlipidemia, unspecified Microalbumin, Random (w Creat) Today D50.8 - Other iron deficiency anemias, E28.2 - Polycystic ovarian syndrome, E55.9 - Vitamin D deficiency, unspecified, E78.5 - Hyperlipidemia, unspecified Patient Instructions: Health screenings for women You should visit your health care provider from time to time, even if you are healthy. The purpose of these visits is to: Screen for medical issues Assess your risk for future medical problems Encourage a healthy lifestyle Update vaccinations and other preventive care services Help you get to know your provider in case of an illness Information Even if you feel fine, you should still see your provider for regular checkups. These visits can help you avoid problems in the future. For example, the only way to find out if you have high blood pressure is to have it checked regularly. High blood sugar and high cholesterol levels also may not have any symptoms in the early stages. A simple blood test can check for these conditions. There are specific times when you should see your provider or receive specific health screenings. The [place] Preventive Services Task Force publishes a list of recommended screenings. Below are screening guidelines for women ages 18 to 39. BLOOD PRESSURE SCREENING Your blood pressure should be checked at least once every 3 to 5 years if: Your blood pressure is in the normal range (top number less than 120 mm Hg and bottom number less than 80 mm Hg) You don't have risk factors for high blood pressure Ask your provider if you need your blood pressure checked more often if: The top number is 120 to 129 mm Hg or the bottom number is 70 to 79 mm Hg You have diabetes, heart disease, kidney problems, are overweight, or have certain other health conditions You have a first-degree relative with high blood pressure You are Black You had high blood pressure during a If the top number is 130 mm Hg or greater or the bottom number is 80 mm Hg or greater, this is considered stage 1 hypertension. Schedule an appointment with your provider to learn how you can reduce your blood pressure. Watch for blood pressure screenings in your area. Ask your provider if you can stop in to have your blood pressure checked. BREAST CANCER SCREENING Experts do not agree about the benefits of breast self-exams in finding breast cancer or saving lives. Talk to your provider about what is best for you. A screening mammogram is not recommended for most women under age 40. Your provider may discuss and recommend mammograms, MRI scans, or ultrasounds if you have an increased risk for breast cancer, such as: A mother or sister who had breast cancer at a young age (most often starting screening earlier than the age the close relative was diagnosed) You carry a high-risk genetic marker CERVICAL CANCER SCREENING Cervical cancer screening should start at age 21 years unless your provider advises otherwise. After the first test: Women ages 21 through 29 should have a Pap test every 3 years. Exoprts do not agree on whether HPV testing is recommended for this age group. Women ages 30 through 65 should be screened with either a Pap test every 3 years or the HPV test every 5 years or both tests every 5 years (called cotesting ). Women who have been treated for precancer (cervical dysplasia) should continue to have Pap tests for 20 years after treatment or until age 65, whichever is longer. If you have had your uterus and cervix removed (total hysterectomy), and you have not been diagnosed with cervical cancer or precancer (high grade cervical neoplasia), you do not need cervical cancer screening. CHOLESTEROL SCREENING Cholesterol screening should begin at: Age 45 for women with no known risk factors for coronary heart disease Age 20 for women with known risk factors for coronary heart disease Repeat cholesterol screening should take place: Every 5 years for women with normal cholesterol levels More often if changes occur in lifestyle (including weight gain and diet) More often if you have diabetes, heart disease, kidney problems, or certain other conditions DIABETES SCREENING You should be screened for diabetes starting at age 35 and then repeated every 3 years if you have no risk factors for diabetes. Screening may need to start earlier and be repeated more often if you have other risk factors for diabetes, such as: You have a first degree relative with diabetes. You are overweight or have obesity. You have high blood pressure, prediabetes, or a history of heart disease. Screening for diabetes should be done if you are planning to become and you are overweight and have other risk factors such as high blood pressure. DENTAL EXAM Go to the dentist once or twice every year for an exam and cleaning. Your dentist will evaluate if you need more frequent visits. EYE EXAM Have an eye exam every 5 to 10 years before age 40. If you have vision problems, have an eye exam every 2 years or more often if recommended by your provider. You should have an eye exam that includes an examination of your retina (back of your eye) at least every year if you have diabetes. IMMUNIZATIONS Commonly needed vaccines include: Flu shot: get one every year. COVID-19 vaccine: ask your provider what is best for you. Tetanus-diphtheria and acellular pertussis (Tdap) vaccine: have one at or after age 19 as one of your tetanus-diphtheria vaccines if you did not receive it as an adolescent. Tetanus-diphtheria: have a booster (or Tdap) every 10 years. Varicella vaccine: receive 2 doses if you never had chickenpox or the varicella vaccine. Hepatitis B vaccine: receive 2, 3, or 4 doses, depending on your exact circumstances. Measles, mumps, and rubella (MMR) vaccine: receive 1 to 2 doses if you are not already immune to MMR. Your provider can tell you if you are immune. Ask your provider about the human papillomavirus (HPV) vaccine if: You have not received the HPV vaccine in the past You have not completed the full vaccine series (you should catch up on this shot) Ask your provider if you should receive other immunizations if you have certain health problems that increase your risk for some diseases such as pneumonia. INFECTIOUS DISEASE SCREENING Women who are sexually active should be screened for chlamydia and gonorrhea up until age 25. Women 25 years and older should be screened for chlamydia and gonorrhea if at high risk. Screening for hepatitis C: All adults ages 18 to 79 should get a one-time test for hepatitis C. people should be screened at every . Screening for human immunodeficiency virus (HIV): All people ages 15 to 65 should get a one-time test for HIV. Depending on your lifestyle and medical history, you may also need to be screened for infections such as syphilis and HIV, as well as other infections. PHYSICAL EXAM All adults should visit their provider from time to time, even if they are healthy. The purpose of these visits is to: Screen for disease Assess your risk of future medical problems Encourage a healthy lifestyle Update your vaccinations and other preventive care services Maintain a relationship with a provider in case of an illness Your height, weight, and BMI should be checked at every exam. During your exam, your provider may ask you about: Depression and anxiety Diet and exercise Alcohol and tobacco use Safety issues, such as using seat belts, smoke detectors, and intimate partner violence Your medicines and risk for interactions SKIN SELF-EXAM Your provider may check your skin for signs of skin cancer, especially if you're at high risk, such as if you: Have had skin cancer before Have close relatives with skin cancer Have a weakened immune system OTHER SCREENING Talk with your provider about colon cancer screening if you have a strong family history of colon cancer or polyps, or if you have had inflammatory bowel disease or polyps yourself. Routine bone density screening of women under 40 is not recommended.
[2025-03-01 12:03] VITALS: BP 105/67; PULSE 62; RESP 12; TEMP 36.5; O2SAT 99; BMI 32.5
== END 2025-03-01 12:32 | disposition home or self-care (01) ==
LOC: HO.HMCFM 11:55
PROVIDERS: PCP Nurse Practitioner Family; Visit Provider Nurse Practitioner Family
DX: Z00.00 Encounter for general adult medical examination without abnormal findings (principal); M24.80 Other specific joint derangements of unspecified joint, not elsewhere classified; F32.0 Major depressive disorder, single episode, mild; F41.1 Generalized anxiety disorder; F90.0 Attention-deficit hyperactivity disorder, predominantly inattentive type; E78.2 Mixed hyperlipidemia; E28.2 Polycystic ovarian syndrome; E55.9 Vitamin D deficiency, unspecified; K21.9 Gastro-esophageal reflux disease without esophagitis; N92.1 Excessive and frequent menstruation with irregular cycle; L20.9 Atopic dermatitis, unspecified; Z91.09 Other allergy status, other than to drugs and biological substances; J31.0 Chronic rhinitis; Z86.2 Personal history of diseases of the blood and blood-forming organs and certain disorders involving the immune mechanism; I95.1 Orthostatic hypotension; E66.9 Obesity, unspecified; Z68.32 Body mass index [BMI] 32.0-32.9, adult; Z28.21 Immunization not carried out because of patient refusal

== ENCOUNTER 2025-03-01 11:55 | Outpatient (REF) | payer OTHER, SELFPAY ==
[2025-03-01 15:32] LABS: Hematocrit 46.2 % (37.0-47.0); Hemoglobin 15.5 g/dl (12.0-16.0); Mean Corpuscular HGB Conc 33.5 g/dl (31.0-35.0); Mean Corpuscular Hemoglobin 27.8 pg (27.0-33.0); Mean Corpuscular Volume 82.8 fL (80.0-98.0); NRBC Abs Auto 0.000 X10*3/uL (0.0-0.012); NRBC Pct Auto 0.0 /100WBC (0.0-0.2); Platelet Count 288 X10*3/uL (160-400); Red Blood Count 5.58 X10*6/uL (4.20-5.50); White Blood Count 8.4 X10*3/uL (4.8-10.8)
[2025-03-01 16:39] LABS: Microalbum/Creatinine Ratio Ur 15.3 ug/mg cr (<30)
[2025-03-01 19:47] LABS: Alanine Aminotransferase 40 U/L (0-31); Albumin Level 4.7 g/dL (3.5-5.0); Alkaline Phosphatase 69 U/L (39-117); Anion Gap 16 (12-20); Aspartate Amino Transferase 35 U/L (5-31); Blood Urea Nitrogen 12 mg/dL (9-16); Calcium 9.7 mg/dL (8.4-10.2); Carbon Dioxide 19 mmol/L (22-29); Chloride 107 mmol/L (96-108); Cholesterol 179 mg/dL (<200); Estimated Glomerular Filt Rate > 60; HDL Cholesterol 41 mg/dL (>40); Iron 145 mcg/dL (30-160); Percent Iron Saturation 43 % (15-50); Potassium 4.5 mmol/L (3.3-5.1); Sodium 137 mmol/L (135-145); Total Iron Binding Capacity 341 mcg/dL (228-428); Total Protein 7.9 g/dL (6.5-8.0); Triglycerides 100 mg/dL (<150); Unsaturated Iron Binding 196 ug/dL
[2025-03-01 19:58] LABS: Ferritin 31 ng/mL (10-122)
[2025-03-01 20:07] LABS: Folate 4.6 ng/mL (> or = 4.0); Vitamin B12 437 pg/mL (200-900)
== END 2025-03-01 11:56 | disposition home or self-care (01) ==
LOC: HO.WFDLDS 11:55
PROVIDERS: PCP Nurse Practitioner Family; Visit Provider Nurse Practitioner Family
DX: E28.2 Polycystic ovarian syndrome (principal); D50.8 Other iron deficiency anemias; E78.5 Hyperlipidemia, unspecified; E55.9 Vitamin D deficiency, unspecified; M24.80 Other specific joint derangements of unspecified joint, not elsewhere classified; F32.0 Major depressive disorder, single episode, mild; F41.1 Generalized anxiety disorder; F90.0 Attention-deficit hyperactivity disorder, predominantly inattentive type; E78.2 Mixed hyperlipidemia; K21.9 Gastro-esophageal reflux disease without esophagitis; N92.1 Excessive and frequent menstruation with irregular cycle; J45.20 Mild intermittent asthma, uncomplicated; L20.9 Atopic dermatitis, unspecified; Z91.09 Other allergy status, other than to drugs and biological substances; E66.9 Obesity, unspecified; J31.0 Chronic rhinitis; Z28.21 Immunization not carried out because of patient refusal; Z92.89 Personal history of other medical treatment; I95.1 Orthostatic hypotension
CPT/HCPCS: 36415; 80053; 80061; 82043; 82306; 82570; 82607; 82728; 82746; 83036; 83540; 84443; 85027; 96127; 96160